=== PATIENT | female | born 1935 | race Caucasian/White ===

== ENCOUNTER 2018-10-10 16:14 | Outpatient (REF) | payer MEDICARE, SELFPAY ==
[2018-10-10 19:38] LABS: TSH 0.21 uIU/mL (0.358-3.74)
== END 2018-10-10 16:34 ==
LOC: NCHCN 16:14
PROVIDERS: PCP Internal Medicine; Visit Provider Internal Medicine
DX: I48.0 Paroxysmal atrial fibrillation (principal); I20.9 Angina pectoris, unspecified; E03.9 Hypothyroidism, unspecified
CPT/HCPCS: 84443

== ENCOUNTER 2018-12-23 14:42 | Outpatient (REF) | payer MEDICARE, SELFPAY ==
[2018-12-23 19:15] LABS: LDL CHOLESTEROL 75 mg/dL (<100); TSH 2.55 uIU/mL (0.358-3.74)
== END 2018-12-23 15:02 ==
LOC: NCHCN 14:42
PROVIDERS: PCP Internal Medicine; Visit Provider Internal Medicine
DX: I20.9 Angina pectoris, unspecified (principal); I48.0 Paroxysmal atrial fibrillation; I25.10 Atherosclerotic heart disease of native coronary artery without angina pectoris; E03.9 Hypothyroidism, unspecified
CPT/HCPCS: 83721; 84443

== ENCOUNTER 2019-02-10 15:03 | Outpatient (REF) | payer MEDICARE, SELFPAY ==
[2019-02-10 19:41] LABS: Albumin 3.4 g/dL (3.4-5.0); Anion Gap 13.4 mmol/L (3-11); BUN 37 mg/dL (7-18); CO2 22.6 mmol/L (21.0-32.0); CREATININE 2.97 mg/dL (0.55-1.02); Calcium 9.3 mg/dL (8.5-10.1); Chloride 103 mmol/L (98-107); Estimated GFR 15.15 (mL/min/1.73m2); Glucose 143 mg/dL (70-100); Magnesium 1.4 mg/dL (1.8-2.4); PHOSPHORUS 4.4 mg/dL (2.6-4.7); Potassium 3.9 mmol/L (3.5-5.1); Sodium 139 mmol/L (136-145)
[2019-02-12 13:04] LABS: Albumin 54.5 % (55.8-66.1); Monoclonal Spike 3.2 %; Total Protein 6.7 g/dl (6.3-8.2)
[2019-02-12 15:35] LABS: Albumin, Urine % 36.3 %; Comment SEE COMMENTS; Globulins, Urine % 63.7; Total Protein Urine 48 mg/dl
== END 2019-02-10 15:23 ==
LOC: NCHCN 15:03
PROVIDERS: PCP Internal Medicine; Visit Provider Internal Medicine
DX: I48.0 Paroxysmal atrial fibrillation (principal); N18.3 Chronic kidney disease, stage 3 (moderate); R05 Cough; N30.00 Acute cystitis without hematuria
CPT/HCPCS: 80069; 84156; 84166; 86335; 87077; 83735; 84165; 87086; 87186

== ENCOUNTER → 2019-05-08 10:44 | Outpatient (BNVA) | payer MEDICARE, SELFPAY | PROVIDERS: PCP Internal Medicine; Referring Provider Internal Medicine; Visit Provider Nurse Practitioner Gerontology | DX: N39.0 Urinary tract infection, site not specified (principal); N12 Tubulo-interstitial nephritis, not specified as acute or chronic; I12.9 Hypertensive chronic kidney disease with stage 1 through stage 4 chronic kidney disease, or unspecified chronic kidney disease; N18.3 Chronic kidney disease, stage 3 (moderate); E11.22 Type 2 diabetes mellitus with diabetic chronic kidney disease | CPT/HCPCS: 81003; 99204 ==

== ENCOUNTER → 2019-07-17 08:35 | Outpatient (BNVA) | payer MEDICARE, SELFPAY | PROVIDERS: PCP Internal Medicine; Referring Provider Internal Medicine; Visit Provider Nurse Practitioner Gerontology | DX: N39.0 Urinary tract infection, site not specified (principal); N12 Tubulo-interstitial nephritis, not specified as acute or chronic | CPT/HCPCS: 51798; 81003; 99213 ==

== ENCOUNTER 2021-02-24 17:02 | Outpatient (REF) | payer MEDICARE, SELFPAY | END 2021-02-24 17:03 | disposition home or self-care (01) | LOC: NCHCN 17:02 | PROVIDERS: PCP Internal Medicine; Visit Provider Nurse Practitioner Family | DX: E11.9 Type 2 diabetes mellitus without complications (principal); E03.9 Hypothyroidism, unspecified | CPT/HCPCS: 83036 ==

== ENCOUNTER 2021-07-08 11:23 | Outpatient (REF) | payer MEDICARE, SELFPAY ==
[2021-07-08 14:38] LABS: TSH (W/Ref FT4) 14.03 uIU/mL (0.36-3.74)
[2021-07-08 14:55] LABS: FREE T4 0.92 ng/dL (0.76-1.46)
== END 2021-07-08 11:24 | disposition home or self-care (01) ==
LOC: NCHCN 11:23
PROVIDERS: PCP Internal Medicine; Visit Provider Nurse Practitioner Family
DX: E03.9 Hypothyroidism, unspecified (principal)
CPT/HCPCS: 84439; 84443

== ENCOUNTER 2021-08-10 15:03 | Emergency (ER) | payer MEDICARE, SELFPAY ==
[2021-08-10] VITALS (34 sets, daily range): BP systolic 157–180; BP diastolic 74–93; PULSE 61–91; RESP 12–29; TEMP 36.3–36.8; O2SAT 91–98
--- NOTE | 2021-08-10 15:35 | W.ED.GENAD ---
Discharge Plan Disposition Patient Disposition: HOME Condition: Stable Discharge Details Clinical Impression: Fall, Fracture of nasal bone, Contusion of rib on left side, Chest wall contusion Primary Care Provider: Jamil Recio ED Provider: Anjana Mcadams Home Meds and New Rx's Prescriptions: New oxycodone 5 mg tablet 5 mg PO Q6H PRN (Reason: pain) Qty: 10 RF: 0 methocarbamol 500 mg tablet 500 mg PO Q6H PRN (Reason: muscle spasm) Qty: 14 RF: 0 Continued glipizide 2.5 mg tablet extended release 24hr 2.5 mg PO DAILY RF: 0 torsemide 10 mg tablet 10 mg PO DAILY RF: 0 aspirin [Adult Aspirin Regimen] 81 mg tablet,delayed release (DR/EC) 81 mg PO DAILY RF: 0 amiodarone 200 mg tablet 100 mg PO DAILY RF: 0 atorvastatin 20 mg tablet 10 mg PO DAILY RF: 0 levothyroxine [Synthroid] 50 mcg tablet 50 mcg PO DAILY RF: 0 magnesium gluconate [Mag-G] 27 mg magnesium (500 mg) tablet 27 mg PO DAILY RF: 0 B-100 Complex 100 mg tablet extended release PO RF: 0 mecobalamin (vitamin B12) 5,000 mcg tablet,disintegrating PO RF: 0 cholecalciferol (vitamin D3) 2,000 unit capsule 2,000 unit PO DAILY RF: 0 Premarin 0.625 mg/gram cream 0.625 mg VG DIRECTED Qty: 90 RF: 4 fluticasone propionate [Allergy Relief (fluticasone)] 50 mcg/actuation spray,suspension 1 spray JULIEN DAILY RF: 0 nitroglycerin 0.4 mg tablet, sublingual 0.4 mg SL Q5M PRNRF: 0 losartan 100 MG tablet 100 mg PO DAILY RF: 0 primidone 50 mg tablet 50 mg PO TID RF: 0 carvedilol 12.5 mg tablet 12.5 mg PO BID RF: 0 amiodarone 200 mg tablet RF: 0 ascorbic acid (vitamin C) [Vitamin C] 500 mg Tablet 500 mg PO DAILY RF: 0 lisinopril 40 mg tablet 20 mg PO DAILY RF: 0 Eliquis 2.5 mg tablet 2.5 mg PO BID RF: 0 cholecalciferol (vitamin D3) 50 mcg (2,000 unit) capsule 2,000 unit PO DAILY RF: 0 Discharge Instructions Instructions: Nasal Fracture (ED), Head Injury (ED), Fall Prevention (ED), Rib Contusion (ED) Additional Instructions: Your imaging today is reassuring and did not note evidence of acute significant findings other than the previously diagnosed nasal bone fracture. Apply ice to the affected area several times daily for 20 minutes at a time. Take Tylenol as needed and directed for pain. You are being sent home with prescriptions for oxycodone and methocarbamol to take as needed and directed for pain. Follow-up with your primary care doctor for reevaluation and for further discussion of your nasal bone fracture if you need to follow up with the Ear, Nose and Throat doctor. Return immediately to the emergency department if you develop any worsening or new concerning symptoms. Referrals: Antony Lamb MD [ [facility] STAFF PHYSICIAN] - Discharge Data Discharge Physician: Anjana Mcadams Medical Decision Making 86-year-old female with a history of atrial fibrillation on Eliquis presents for left side pain and chest pain that occurs with movement and deep breath since a fall 5 days ago. She does admit to change in her vision on the right since striking her eye. She has a right periorbital contusion and ecchymosis. PERRLA. EOMI. No evidence of entrapment. OU 20/30. She has anterior chest wall ecchymosis and tenderness to her anterior chest and left lateral rib and left upper quadrant. No peritoneal signs. She has midline spinal tenderness. No orthopedic deformities. No focal deficits. We will obtain screening labs, CT head/facial bone/cervical spine, chest/abdomen/pelvis and T and L-spine recons. As her chest pain is at the site of ecchymosis and occurs only with movement and palpation, does not appear consistent with cardiac etiology and she is 5 days out from her fall and thus do not an indication for blunt cardiac injury work-up. Screening labs obtained and note CKD with a creatinine of 2.5, GFR 18, similar to previous baseline. Imaging changed to non-contrast. CT imaging reviewed and negative for new acute findings other than previously diagnosed nasal bone fracture. Patient drove herself to the ED and cannot get a ride home. Will send home with oxycodone methocarbamol to take as needed and directed for chest wall and rib contusion. Prescriptions were sent electronically to her pharmacy. Advised to follow up with the primary care doctor for re-evaluation. Usual and customary return precautions given prior to discharge. Medical Records Medical records reviewed: Yes I reviewed the patient's medical records. Imaging Data Radiologic Study: Radiologist's impression: CT Thoracic Spine Without Contrast Exam date and time: 08/10/2021 5:28 PM Age: 86 years old Clinical indication: Other: Lt sided pain, fall TECHNIQUE: Imaging protocol: Computed tomography images of the thoracic spine without contrast. Radiation optimization: All CT scans at this facility use at least one of these dose optimization techniques: automated exposure control; mA and/or kV adjustment per patient size (includes targeted exams where dose is matched to clinical indication); or iterative reconstruction. COMPARISON: CT HEAD CERV SPINE FACIAL WO 08/10/2021 5:04 PM FINDINGS: Vertebrae: Moderate kyphosis of the thoracic spine. No compression fracture deformity. No spondylolysis or spondylolisthesis. Discs/Spinal canal/Neural foramina: Mild to moderate disc space narrowing and superior endplate Schmorl's node in the mid to lower thoracic spine from chronic degenerative changes. Superior T9, T11, and T12 Schmorl's nodes. A left T1 oval 1 cm meningocele. A right T2 oval 2 cm meningocele. Other bones/joints: Moderate generalized osteopenia. Soft tissues: Unremarkable. IMPRESSION: 1. No acute thoracic spine fracture or malalignment. 2. 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 CT Lumbar Spine Without Contrast Exam date and time: 08/10/2021 5:28 PM Age: 86 years old Clinical indication: Other: Lt sided pain, fall TECHNIQUE: Imaging protocol: Computed tomography images of the lumbar spine without contrast. Radiation optimization: All CT scans at this facility use at least one of these dose optimization techniques: automated exposure control; mA and/or kV adjustment per patient size (includes targeted exams where dose is matched to clinical indication); or iterative reconstruction. COMPARISON: CT HEAD CERV SPINE FACIAL WO 08/10/2021 5:04 PM FINDINGS: Vertebrae: Normal lordosis of the lumbar spine. Five non rib-bearing lumbar type vertebral bodies. No compression fracture deformity. No spondylolysis or spondylolisthesis. Discs/Spinal canal/Neural foramina: Chronic hnwj-bj-thowjiql degenerative changes with facet hypertrophy in the posterior elements. Vacuum disc formation at T12-L1 and within L5-S1 disc material. Superior L2 Schmorl's node. Other bones/joints: No lytic or blastic osseous lesions. Moderate generalized osteopenia. Soft tissues: Unremarkable. IMPRESSION: No acute lumbar spine fracture or malalignment. CT Chest Without Contrast; Diagnostic Exam date and time: 08/10/2021 5:28 PM Age: 86 years old Clinical indication: Abdominal pain; Other: Luq pain; Left-sided; Patient HX: Contusion lt ribs, tender over L ribs/luq TECHNIQUE: Imaging protocol: Diagnostic computed tomography of the chest without contrast. Radiation optimization: All CT scans at this facility use at least one of these dose optimization techniques: automated exposure control; mA and/or kV adjustment per patient size (includes targeted exams where dose is matched to clinical indication); or iterative reconstruction. COMPARISON: CT HEAD CERV SPINE FACIAL WO 08/10/2021 5:04 PM FINDINGS: Thyroid: Atrophic thyroid gland versus stable postoperative changes of total thyroidectomy. Lungs: No pulmonary contusion or consolidation. No pulmonary nodule. Medial left lower lobe focus of atelectasis. Mild centrilobular emphysema. Pleural spaces: No pneumothorax or hemothorax. Heart: No pericardial effusion. Cardiomegaly with moderate to severe coronary artery calcifications. Mediastinal space: No mediastinal hematoma. Prominent pulmonary artery suggestive of pulmonary arterial hypertension. Aorta: No thoracic aortic aneurysm. No periaortic hematoma. Lymph nodes: Unremarkable. No enlarged lymph nodes. Bones/joints: No acute fracture or dislocation. Soft tissues: Right mastectomy. Left upper chest wall pacemaker with leads directed to the right heart. Probable chronic masslike findings deep to the right latissimus dorsi from internal granulomatous change or hemorrhage within a large lipoma. IMPRESSION: No acute traumatic injuries of the chest identified. CT Abdomen And Pelvis Without Contrast Exam date and time: 08/10/2021 5:28 PM Age: 86 years old Clinical indication: Abdominal pain; Other: Luq pain; Left-sided; Patient HX: Contusion lt ribs, tender over L ribs/luq TECHNIQUE: Imaging protocol: Computed tomography of the abdomen and pelvis without contrast. Radiation optimization: All CT scans at this facility use at least one of these dose optimization techniques: automated exposure control; mA and/or kV adjustment per patient size (includes targeted exams where dose is matched to clinical indication); or iterative reconstruction. COMPARISON: CT HEAD CERV SPINE FACIAL WO 08/10/2021 5:04 PM FINDINGS: Liver: No linear hypodensity or hyperdensity to suggest hepatic laceration. No perihepatic hematoma. Gallbladder and bile ducts: Cholelithiasis. Pancreas: Normal. No ductal dilation. Spleen: No splenic laceration or perisplenic hematoma. Adrenal glands: Multiple bilateral adrenal gland nodules with low internal density most suggestive of multiple benign adrenal adenomas. No hyperdense finding to suggest adrenal hematoma or hemorrhage. Kidneys and ureters: Normal. No hydronephrosis. Stomach and bowel: Stable postoperative changes of a rectosigmoid stump. Appendix: No evidence of appendicitis. Intraperitoneal space: No free air or free fluid. Vasculature: Unremarkable. No abdominal aortic aneurysm. Lymph nodes: Unremarkable. No enlarged lymph nodes. Urinary bladder: Unremarkable as visualized. Reproductive: Unremarkable as visualized. Bones/joints: No acute fracture of the osseous structures in the abdomen or pelvis. Soft tissues: Left lower quadrant end colostomy with a stable large parastomal hernia with non distressed large bowel within. IMPRESSION: 1. No solid organ or hollow viscus injury in the abdomen or pelvis. 2. Left lower quadrant end colostomy with a stable peristomal hernia. Stable rectosigmoid stump. 3. Bilateral adrenal gland adenomas. CT Head Without Contrast Exam date and time: 08/10/2021 3:59 PM Age: 86 years old Clinical indication: CALL, eye bruising S/P trauma. Fall. ; Eye pain and nose pain; Bilateral; Neck pain TECHNIQUE: Imaging protocol: Computed tomography of the head without contrast. Radiation optimization: All CT scans at this facility use at least one of these dose optimization techniques: automated exposure control; mA and/or kV adjustment per patient size (includes targeted exams where dose is matched to clinical indication); or iterative reconstruction. COMPARISON: No relevant prior studies available. FINDINGS: Brain: There is no acute intracranial hemorrhage, mass effect or midline shift. No large acute territorial infarct identified. There are patchy regions of hypodensity in the periventricular and subcortical white matter, likely on the basis of chronic microvascular ischemic disease. Cerebral ventricles: The ventricles and sulci are prominent in size, which is at least in part due to global cerebral volume loss. Paranasal sinuses: Visualized sinuses are unremarkable. No fluid levels. Mastoid air cells: Visualized mastoid air cells are well aerated. Bones/joints: No acute calvarial fracture. Soft tissues: Unremarkable. IMPRESSION: No acute intracranial hemorrhage, mass effect or midline shift. CT Maxillofacial Without Contrast Exam date and time: 08/10/2021 3:59 PM Age: 86 years old Clinical indication: CALL, eye bruising S/P trauma. Fall. ; Eye pain and nose pain; Bilateral; Neck pain TECHNIQUE: Imaging protocol: Computed tomography images of the face without contrast. Radiation optimization: All CT scans at this facility use at least one of these dose optimization techniques: automated exposure control; mA and/or kV adjustment per patient size (includes targeted exams where dose is matched to clinical indication); or iterative reconstruction. COMPARISON: No relevant prior studies available. FINDINGS: Orbital cavity: Orbits are normal. Globes are unremarkable. Bones/joints: There is a small right nasal bone fracture seen anteriorly with medial displacement of the anterior fragment. Paranasal sinuses: Normal. No air-fluid levels. Soft tissues: No significant subcutaneous hematoma. IMPRESSION: Small right nasal bone fracture as described. CT Cervical Spine Without Contrast Exam date and time: 08/10/2021 3:59 PM Age: 86 years old Clinical indication: CALL, eye bruising S/P trauma. Fall. ; Eye pain and nose pain; Bilateral; Neck pain TECHNIQUE: Imaging protocol: Computed tomography images of the cervical spine without contrast. COMPARISON: No relevant prior studies available. FINDINGS: Bones/joints: No acute fracture. Normal alignment. Discs/Spinal canal/Neural foramina: There are multilevel degenerative changes most prominent at C3-C4 and C5-C6 with bilateral neural foraminal narrowing. No significant spinal canal stenosis. Lungs: Lung apices are normal. Soft tissues: Incidentally noted is a 19.5 x 14.4 x 14.3 cm oval-shaped cystic lesion at the right T2-T3 extraforaminal space adjacent to the right lung apex. IMPRESSION: 1. No acute fracture. Multilevel degenerative changes as described. 2. Incidental 19.5 cm oval shaped cystic lesion at the right T2-T3 extraforaminal space, which could represent a nerve sheath cyst or duplication cyst. Correlate with prior clinical history and compare with prior imaging for stability. Lab Data Lab results reviewed: Yes I reviewed the patient's lab results. Labs: Laboratory Tests Range/Units 08/10/21 08/10/21 08/10/21 16:27 16:27 16:27 WBC (4.4-10.8) 10^3/uL 5.81 RBC (3.93-5.22) 10^6/uL 3.25 L Hgb (11.2-15.7) g/dL 11.0 L Hct (36.0-46.0) % 34.1 L MCV (80-95) fL 104.9 H MCH (27.0-33.0) pg 33.8 H MCHC (32.0-36.0) % 32.3 RDW (11.7-14.6) % 15.8 H Plt Count (130-400) 10^3/uL 237 MPV (8.0-11.0) fL 10.5 Immature Gran % 0.5 Neutrophils % 60.4 Lymphocytes % 23.1 Monocytes % 13.6 Eosinophils % 1.5 Basophils % 0.9 Nucleated RBC % % 0 Absolute Neutrophils (1.2-6.7) 10^3/uL 3.51 Absolute Lymphocytes (1.2-3.4) 10^3/uL 1.34 Absolute Monocytes (0.1-0.8) 10^3/uL 0.79 Absolute Eosinophils (0.0-0.7) 10^3/uL 0.09 Absolute Basophils (0.0-0.2) 10^3/uL 0.05 Sodium (136-145) mmol/L 141 Potassium (3.5-5.1) mmol/L 4.1 Chloride (98-107) mmol/L 105 Carbon Dioxide (21.0-32.0) mmol/L 28.1 Anion Gap (3-11) mmol/L 7.9 BUN (7-18) mg/dL 41 H Creatinine (0.55-1.02) mg/dL 2.5 H Estimated GFR/1.73 m2 (mL/min/1.73m2) 18.35 Glucose (74-106) mg/dL 165 H Calcium (8.5-10.1) mg/dL 9.1 Total Bilirubin (0.2-1.0) mg/dL 0.3 AST (15-37) U/L 56 H ALT (14-59) U/L 49 Alkaline Phosphatase (46-116) U/L 101 Total Protein (6.4-8.2) g/dL 7.1 Albumin (3.4-5.0) g/dL 3.4 Lipase (73-393) U/L 167 HPI General Mode of arrival: ambulatory. Date/Time Provider Initiated Documentation: 08/10/21 15:12. Limitations to Documentation: no limitations. Information obtained by: patient. HPI Narrative: Patient is a an 86-year-old female with a history of atrial fibrillation on Eliquis presents for chest and left-sided pain that is worse with movement and deep breath since a fall 5 days ago. Patient states she was in a [employer] [place] 5 days ago when she slipped on water and fell striking the right side of her head and face and the left side of her body on the ground. She denies LOC. She states she was seen at [facility] at that time and diagnosed with a nasal bone fracture and had sutures placed in her forehead which were removed today. She states she has had continued pain in her left side since her fall and states she has had difficulty getting out of bed and moving due to the pain. Related Data Home Medications Medication Instructions Recorded Confirmed losartan 100 mg PO DAILY tab-cap 04/16/17 08/10/21 amiodarone 200 mg tablet 100 mg PO DAILY 05/08/19 08/10/21 aspirin 81 mg tablet,delayed 81 mg PO DAILY 05/08/19 08/10/21 release atorvastatin 20 mg tablet 10 mg PO DAILY 05/08/19 08/10/21 cholecalciferol (vitamin D3) 50 2,000 unit PO DAILY 05/08/19 08/10/21 mcg (2,000 unit) capsule conjugated estrogens 0.625 mg/gram 0.625 mg VG DIRECTED #90 gm 05/08/19 08/10/21 vaginal cream glipizide 2.5 mg tablet, extended 2.5 mg PO DAILY 05/08/19 08/10/21 release 24 hr levothyroxine 50 mcg tablet 50 mcg PO DAILY 05/08/19 08/10/21 magnesium gluconate 27 mg 27 mg PO DAILY tab 05/08/19 08/10/21 magnesium (500 mg) tablet mecobalamin (vitamin B12) 5,000 mcg PO 05/08/19 05/08/19 mcg disintegrating tablet torsemide 10 mg tablet 10 mg PO DAILY 05/08/19 08/10/21 vit B complex 100 combo no.2 100 tab PO 05/08/19 05/08/19 mg tablet,extended release fluticasone propionate 50 1 spray JULIEN DAILY 07/17/19 08/10/21 mcg/actuation nasal spray,suspension nitroglycerin 0.4 mg sublingual 0.4 mg SL Q5M PRN 07/17/19 08/10/21 tablet Eliquis 2.5 mg PO BID 08/10/21 08/10/21 amiodarone 08/10/21 08/10/21 ascorbic acid (vitamin C) [Vitamin 500 mg PO DAILY 08/10/21 08/10/21 C] carvedilol 12.5 mg PO BID 08/10/21 08/10/21 cholecalciferol (vitamin D3) 2,000 unit PO DAILY 08/10/21 08/10/21 lisinopril 20 mg PO DAILY 08/10/21 08/10/21 methocarbamol 500 mg PO Q6H PRN #14 tab 08/10/21 oxycodone 5 mg PO Q6H PRN #10 tab 08/10/21 primidone 50 mg PO TID 08/10/21 08/10/21 Previous Rx's Medication Instructions Recorded conjugated estrogens 0.625 mg/gram 0.625 mg VG DIRECTED #90 gm 05/08/19 vaginal cream methocarbamol 500 mg PO Q6H PRN #14 tab 08/10/21 oxycodone 5 mg PO Q6H PRN #10 tab 08/10/21 Allergies Allergy/AdvReac Type Severity Reaction Status Date / Time levofloxacin Allergy Severe Unverified 08/10/21 15:18 Penicillins Allergy Intermediate RASH Unverified 08/10/21 15:18 erythromycin base Allergy Unknown Unverified 08/10/21 15:18 sulfamethoxazole Allergy Verified 08/10/21 15:18 [From Bactrim] trimethoprim [From Bactrim] Allergy Verified 08/10/21 15:18 General Stated Complaint: Trauma JUNG: 3 Review of Systems All systems reviewed & are unremarkable except as noted in HPI and below Constitutional Constitutional: Reports as per HPI, Denies chills and Denies fever(s) Eyes Eyes: Denies blurry vision ENT Ears, Nose, Mouth, and Throat: Denies dizziness, Denies sore throat and Denies throat swelling Cardiovascular Cardiovascular: Reports chest pain and Denies dyspnea Respiratory Respiratory: Denies cough and Denies dyspnea Gastrointestinal Gastrointestinal: Reports abdominal pain, Denies diarrhea and Denies vomiting Genitourinary Genitourinary: Denies hematuria and Denies dysuria Musculoskeletal Musculoskeletal: Denies back pain and Denies numbness Integumentary/Breasts Skin/Breast: Denies lesions and Denies rash Neurologic Neurologic: Denies dizziness, Denies localized weakness and Denies numbness Allergic/Immunologic Allergic/Immunologic: Denies throat swelling [facility] Active Problem List (Updated 08/10/21 @ 19:13 by Anjana Mcadams DO) Fall (Acute) Fracture of nasal bone (Acute) Contusion of rib on left side (Acute) Chest wall contusion (Acute) Colostomy in place (Acute 04/03/13) S/P middle ear reconstruction (Acute 04/03/13) Postoperative hypothyroidism (Acute 04/03/13) Lichen sclerosus et atrophicus (Acute 04/03/13) Ischemic colitis (Acute 04/03/13) Hx of malignant neoplasm of breast (Acute 04/03/13) 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) Diabetes mellitus (Acute 04/03/13) Medical History (Updated 08/10/21 @ 19:13 by Anjana Mcadams DO) Acute recurrent cystitis Anemia of chronic renal failure Angina pectoris BPPV (benign paroxysmal positional vertigo) Breast cancer CAD (coronary artery disease) Chest pain Chronic cough CKD (chronic kidney disease) stage 3, GFR 30-59 ml/min Dyspnea on exertion Essential tremor GERD (gastroesophageal reflux disease) History of cervical dysplasia Hyperlipidemia Hypertension Hypothyroid Lumbago Myocardial infarct KD (obstructive sleep apnea) Paroxysmal atrial fibrillation Rectal pouchitis Right bundle branch block Sciatica Tear of both anterior and posterior cruciate ligaments of knee Tendon disorder TIA (transient ischemic attack) Surgical History (Updated 07/10/18 @ 14:36 by [employer]) Breast, Mastectomy (~2001) Right Colostomy (~2006) for Ischemic colitis Social History (Updated 06/27/18 @ 09:49 by Amber Davis LPN) Smoking/Tobacco Use Status: Former Tobacco Use Smoking risk assessment performed?: Yes Alcohol Intake: never Substance use type: does not use Seatbelt use: always Exam Const General: cooperative and healthy appearing Orientation: alert and awake [facility] Head: normal to inspection Ears: hearing grossly normal bilaterally, external ears normal and TM's normal bilaterally General nose exam: external nose normal Face and sinus: normal facial exam Mouth: oral mucosae normal Teeth and gingiva: dentition normal Throat: posterior oropharynx normal Eyes General: appearance normal, both eyes and all related structures Eyelids: eyelids normal Pupils: PERRL EOM: EOM intact bilaterally Neck Neck: normal visual inspection Lymphatic: no lymphadenopathy noted Chest Chest: normal inspection of the chest Resp Effort & Inspection: normal respiratory effort and able to speak in complete sentences Auscultation: clear to auscultation bilaterally Cardio Rate: regular rate Rhythm: regular rhythm GI Inspection: normal to inspection Palpation: soft, not firm, no guarding, no hepatosplenomegaly, no masses and nontender Auscultation: normal bowel sounds Back/Spine/Pelvis Back: no CVA tenderness Skin General skin exam: no rashes or lesions noted Neuro General: patient alert and patient awake Cognition: normal cognition Speech: speech normal Gait: normal gait Motor: muscle tone normal throughout Sensory Exam: no sensory deficits noted Extrem General: normal to inspection, full ROM and capillary refill normal Psych Appearance: grossly normal Mental Status: mental status grossly normal Speech and Movement: speech and movement normal Affect: normal affect Thought Process: normal Course Vital Signs Vital signs: Vital Signs Temperature 97.3 F L 08/10/21 15:10 Pulse 69 08/10/21 15:10 Respiratory Rate 16 08/10/21 15:10 Blood Pressure 160/90 H 08/10/21 15:10 Pulse Oximetry 98 08/10/21 15:10 Temperature 97.3 F L 08/10/21 15:10 Temperature Source Skin 08/10/21 15:10 Pulse 69 08/10/21 15:10 Respiratory Rate 16 08/10/21 15:10 Respiratory Effort Non-Labored 08/10/21 15:10 Blood Pressure 160/90 H 08/10/21 15:10 Blood Pressure Position Supine 08/10/21 15:10 Pulse Oximetry 98 08/10/21 15:10 Oxygen Delivery Method Room Air 08/10/21 15:10 Oxygen Flow Rate 0 08/10/21 15:10 Pain Level 9 08/10/21 15:10
--- NOTE | 2021-08-10 15:45 | DI.CT_ITS ---
Exam(s) CT HEAD CERV SPINE FACIAL WO EXAM: CT HEAD CERV SPINE FACIAL WO CLINICAL HISTORY: s/p recent fall w/ nose fx, now neck/R eye pain. TECHNIQUE: Imaging Protocol: Axial computed tomography images with coronal and sagittal reformatted images were created and reviewed COMPARISON: No exams were available for comparison FINDINGS: CT BRAIN: There are no skull fractures but there is a fracture of the right side of the nasal bone. No fluid i n the ethmoidal air cells and paranasal sinuses. There is no evidence of intracranial hemorrhage, mass effect, or shift of midline structures. There are no extra-axial fluid collections. The ventricles are not enlarged or shifted and there is no blo od within the ventricular system nor within the basal cisterns. There is periventricular white matter hypodensity bilaterally consistent with chronic small vessel di sease. Small 3 millimeter nonhemorrhagic lacunar infarcts noted in the immediate right periventricul ar white matter. No evidence of large acute territorial infarct. Another small lacunar infarct is n oted in the left periventricular white matter. Also mildly asymmetric hypodensity in the right side of lul which may be post ischemic. Vascular calcification is noted within the vertebral arteries at the skull base. Also within the intracavernous internal carotid arteries CT MAXILLOFACIAL BONES: There is fracture of the right side of the nasal bone. There is no evidence of facial fractures nor fluid in the visualized paranasal sinuses. there is no evidence of orbital blowout fracture. CT CERVICAL SPINE: There is no evidence of fracture nor listhesis. No significant prevertebral soft tissue swelling. M ultilevel facet arthropathy. No facet malalignment evident. No significant osseous lesions evident. There is moderate disc space narrowing C5-6 level C6-7 level. IMPRESSION: No acute intracranial findings on this noninfused CT scan of the brain.Chronic white matter ischemic changes, as described above There is a mildly displaced fracture of the right side of the nasal bone. No evidence of cervical spine fracture, malalignment, nor acute compromise of the cervical spinal can al. 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 RADIATION OPTIMIZATION: All CT scans at this facility use at least one of these dose optimization te chniques: automated exposure control; mA and/or kV adjustment per patient size (includes targeted exa ms where dose is matched to clinical indication); or iterative reconstruction.
--- NOTE | 2021-08-10 15:56 | DI.CT_ITS ---
Exam(s) CT THORACIC LUMBAR SPINE REC EXAM: CT THORACIC LUMBAR SPINE REC CLINICAL HISTORY: s/p fall, mid back pain, r/o fx TECHNIQUE: COMPARISON: No exams were available for comparison FINDINGS: THORACIC SPINAL COLUMN: No fractures. No listhesis no ominous osseous lesions. On the right side at T2 level there is an oval perineural meningocele measuring 2 cm by 1.3 cm x 1.4 cm. On the left side at T1 level there is a similar but smaller finding measuring 1.2 by 1.2 x 1.1 cm No evidence of acute fracture or listhesis. No malalignment. No ominous osseous lesions. LUMBOSACRAL SPINAL COLUMN: No evidence of fracture. Nor osseous lesions. Mild degenerative anterolisthesis L4 upon L5. There is an element of central spinal canal stenosis at this level and mild bilateral foraminal stenosis du e to the listhesis. There is no disc space height loss. IMPRESSION:
--- NOTE | 2021-08-10 16:13 | DI.CT_ITS ---
Exam(s) CT CHEST/ABD/PEL WO EXAM: CT CHEST/ABD/PEL WO CLINICAL HISTORY: s/p fall, contusion L ribs, tender L ribs/LUQ. TECHNIQUE: Imaging Protocol: Axial computed tomography images with coronal and sagittal reformatted images were created and reviewed CONTRAST MATERIAL: Intravenous: none Oral: None COMPARISON: No exams were available for comparison FINDINGS: CHEST: LUNGS: Mild increased markings both lung bases. No lung contusion. No pleural effusions. No pneumo thorax.. MEDIASTINUM: No mediastinal hematoma. No incidental adenopathy. Pacemaker wires CARDIAC: Heart size upper normal. No pericardial effusion. Pacemaker lead tips in RV. Coronary art georgie calcificationcaliber of the thoracic aorta is within normal limits. OSSEOUS: No fractures evident.No osseous lesions.. Right mastectomy. ABDOMEN: There is no ascites. LIVER: No a patent laceration evident on this noninfused study. No Ludivina hepatic fluid. GALLBLADDER/BILIARY: Cholelithiasis. No evidence of acute cholecystitis. CBD is not dilated. PANCREAS: No evidence of obvious pancreatic mass nor dilatation of the pancreatic duct. SPLEEN: Spleen size normal. No splenic laceration. No perisplenic fluid. ADRENALS: 2 nodules noted in the right adrenal gland, noncalcified and both hypodense. Nodule in the genu of the left adrenal gland also noted. These are probably incidental adenomas. KIDNEYS: No evidence of renal laceration or subcapsular hematoma. No significant renal masses. No h ydronephrosis.. ABDOMINAL AORTA: Calcified but not enlarged. LYMPH NODES: There is no retroperitoneal nor para-aortic adenopathy. ABDOMINAL WALL/GI: Left-sided colostomy. Peristomal hernia noted No evidence of bowel obstruction. PELVIS: LYMPH NODES: There is no intrapelvic nor inguinal adenopathy. GI: No evidence of appendicitis.No evidence of sigmoid diverticulitis. URINARY BLADDER: No calculi nor obvious masses evident REPRODUCTIVE: Age appropriate OSSEOUS: No significant osseous lesions. IMPRESSION: 1. Realized limitations of a non few study, there are no significant trauma sequelae evident in the c hest, abdomen, and pelvis. 2. Right mastectomy. Left colostomy. 3. Cholelithiasis. No evidence of acute cholecystitis nor dilatation of the biliary tree. Bilateral adrenal gland adenomas RADIATION DOSE DELIVERED: Total DLP DATA REPOSITORY: All CT scans at this facility are submitted to the National Radiology Data Registry (NRDR) Dose Index Registry (DIR) with the [employer] ([employer]). RADIATION OPTIMIZATION: All CT scans at this facility use at least one of these dose optimization te chniques: automated exposure control; mA and/or kV adjustment per patient size (includes targeted exa ms where dose is matched to clinical indication); or iterative reconstruction.
[2021-08-10] MEDS: Acetaminophen 500 MG TAB 1000 MG PO (16:16)
[2021-08-10 16:36] LABS: Abs Immature Grans 0.03 10^3/uL (0.0-0.06); Absolute Basophil Count 0.05 10^3/uL (0.0-0.2); Absolute Eosinophil Count 0.09 10^3/uL (0.0-0.7); Absolute Lymphocyte Count 1.34 10^3/uL (1.2-3.4); Absolute Monocyte Count 0.79 10^3/uL (0.1-0.8); Absolute Neutrophil Count 3.51 10^3/uL (1.2-6.7); Basophils % 0.9; Eosinophils % 1.5; HCT 34.1 % (36.0-46.0); Immature Grans % 0.5; Lymphocytes % 23.1; MCH 33.8 pg (27.0-33.0); MCHC 32.3 % (32.0-36.0); MCV 104.9 fL (80-95); MPV 10.5 fL (8.0-11.0); Monocytes % 13.6; Neutrophils % 60.4; Nucleated RBC 0 %; Platelet Count 237 10^3/uL (130-400); RBC 3.25 10^6/uL (3.93-5.22); RDW 15.8 % (11.7-14.6); WBC 5.81 10^3/uL (4.4-10.8)
[2021-08-10 16:52] LABS: Lipase 167 U/L (73-393)
[2021-08-10 16:55] LABS: ALT 49 U/L (14-59); AST 56 U/L (15-37); Albumin 3.4 g/dL (3.4-5.0); Alkaline Phosphatase 101 U/L (46-116); Anion Gap 7.9 mmol/L (3-11); BUN 41 mg/dL (7-18); Bilirubin, Total 0.3 mg/dL (0.2-1.0); CO2 28.1 mmol/L (21.0-32.0); CREATININE 2.5 mg/dL (0.55-1.02); Calcium 9.1 mg/dL (8.5-10.1); Chloride 105 mmol/L (98-107); Estimated GFR 18.35 (mL/min/1.73m2); Glucose 165 mg/dL (74-106); Potassium 4.1 mmol/L (3.5-5.1); Sodium 141 mmol/L (136-145); Total Protein 7.1 g/dL (6.4-8.2)
[2021-08-10] MEDS: Normal Saline 250 ML IV (17:58)
--- NOTE | 2021-08-10 18:36 | DI.VRAD_ITS ---
PROCEDURE INFORMATION: Exam: CT Chest Without Contrast; Diagnostic Exam date and time: 08/10/2021 5:28 PM Age: 86 years old Clinical indication: Abdominal pain; Other: Luq pain; Left-sided; Patient HX: Contusion lt ribs, tender over L ribs/luq TECHNIQUE: Imaging protocol: Diagnostic computed tomography of the chest without contrast. Radiation optimization: All CT scans at this facility use at least one of these dose optimization techniques: automated exposure control; mA and/or kV adjustment per patient size (includes targeted exams where dose is matched to clinical indication); or iterative reconstruction. COMPARISON: CT HEAD CERV SPINE FACIAL WO 08/10/2021 5:04 PM FINDINGS: Thyroid: Atrophic thyroid gland versus stable postoperative changes of total thyroidectomy. Lungs: No pulmonary contusion or consolidation. No pulmonary nodule. Medial left lower lobe focus of atelectasis. Mild centrilobular emphysema. Pleural spaces: No pneumothorax or hemothorax. Heart: No pericardial effusion. Cardiomegaly with moderate to severe coronary artery calcifications. Mediastinal space: No mediastinal hematoma. Prominent pulmonary artery suggestive of pulmonary arterial hypertension. Aorta: No thoracic aortic aneurysm. No periaortic hematoma. Lymph nodes: Unremarkable. No enlarged lymph nodes. Bones/joints: No acute fracture or dislocation. Soft tissues: Right mastectomy. Left upper chest wall pacemaker with leads directed to the right heart. Probable chronic masslike findings deep to the right latissimus dorsi from internal granulomatous change or hemorrhage within a large lipoma. IMPRESSION: No acute traumatic injuries of the chest identified. PROCEDURE INFORMATION: Exam: CT Abdomen And Pelvis Without Contrast Exam date and time: 08/10/2021 5:28 PM Age: 86 years old Clinical indication: Abdominal pain; Other: Luq pain; Left-sided; Patient HX: Contusion lt ribs, tender over L ribs/luq TECHNIQUE: Imaging protocol: Computed tomography of the abdomen and pelvis without contrast. Radiation optimization: All CT scans at this facility use at least one of these dose optimization techniques: automated exposure control; mA and/or kV adjustment per patient size (includes targeted exams where dose is matched to clinical indication); or iterative reconstruction. COMPARISON: CT HEAD CERV SPINE FACIAL WO 08/10/2021 5:04 PM FINDINGS: Liver: No linear hypodensity or hyperdensity to suggest hepatic laceration. No perihepatic hematoma. Gallbladder and bile ducts: Cholelithiasis. Pancreas: Normal. No ductal dilation. Spleen: No splenic laceration or perisplenic hematoma. Adrenal glands: Multiple bilateral adrenal gland nodules with low internal density most suggestive of multiple benign adrenal adenomas. No hyperdense finding to suggest adrenal hematoma or hemorrhage. Kidneys and ureters: Normal. No hydronephrosis. Stomach and bowel: Stable postoperative changes of a rectosigmoid stump. Appendix: No evidence of appendicitis. Intraperitoneal space: No free air or free fluid. Vasculature: Unremarkable. No abdominal aortic aneurysm. Lymph nodes: Unremarkable. No enlarged lymph nodes. Urinary bladder: Unremarkable as visualized. Reproductive: Unremarkable as visualized. Bones/joints: No acute fracture of the osseous structures in the abdomen or pelvis. Soft tissues: Left lower quadrant end colostomy with a stable large parastomal hernia with non distressed large bowel within. IMPRESSION: 1. No solid organ or hollow viscus injury in the abdomen or pelvis. 2. Left lower quadrant end colostomy with a stable peristomal hernia. Stable rectosigmoid stump. 3. Bilateral adrenal gland adenomas. Dictated and Authenticated by: Rogelio De Leon MD. Ordering:RACHEL Yeung MD
--- NOTE | 2021-08-10 18:43 | DI.VRAD_ITS ---
PROCEDURE INFORMATION: Exam: CT Thoracic Spine Without Contrast Exam date and time: 08/10/2021 5:28 PM Age: 86 years old Clinical indication: Other: Lt sided pain, fall TECHNIQUE: Imaging protocol: Computed tomography images of the thoracic spine without contrast. Radiation optimization: All CT scans at this facility use at least one of these dose optimization techniques: automated exposure control; mA and/or kV adjustment per patient size (includes targeted exams where dose is matched to clinical indication); or iterative reconstruction. COMPARISON: CT HEAD CERV SPINE FACIAL WO 08/10/2021 5:04 PM FINDINGS: Vertebrae: Moderate kyphosis of the thoracic spine. No compression fracture deformity. No spondylolysis or spondylolisthesis. Discs/Spinal canal/Neural foramina: Mild to moderate disc space narrowing and superior endplate Schmorl's node in the mid to lower thoracic spine from chronic degenerative changes. Superior T9, T11, and T12 Schmorl's nodes. A left T1 oval 1 cm meningocele. A right T2 oval 2 cm meningocele. Other bones/joints: Moderate generalized osteopenia. Soft tissues: Unremarkable. IMPRESSION: 1. No acute thoracic spine fracture or malalignment. 2. 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 PROCEDURE INFORMATION: Exam: CT Lumbar Spine Without Contrast Exam date and time: 08/10/2021 5:28 PM Age: 86 years old Clinical indication: Other: Lt sided pain, fall TECHNIQUE: Imaging protocol: Computed tomography images of the lumbar spine without contrast. Radiation optimization: All CT scans at this facility use at least one of these dose optimization techniques: automated exposure control; mA and/or kV adjustment per patient size (includes targeted exams where dose is matched to clinical indication); or iterative reconstruction. COMPARISON: CT HEAD CERV SPINE FACIAL WO 08/10/2021 5:04 PM FINDINGS: Vertebrae: Normal lordosis of the lumbar spine. Five non rib-bearing lumbar type vertebral bodies. No compression fracture deformity. No spondylolysis or spondylolisthesis. Discs/Spinal canal/Neural foramina: Chronic [id number] degenerative changes with facet hypertrophy in the posterior elements. Vacuum disc formation at T12-L1 and within L5-S1 disc material. Superior L2 Schmorl's node. Other bones/joints: No lytic or blastic osseous lesions. Moderate generalized osteopenia. Soft tissues: Unremarkable. IMPRESSION: No acute lumbar spine fracture or malalignment. Dictated and Authenticated by: Rogelio De Leon MD. Ordering:RACHEL Yeung MD
--- NOTE | 2021-08-10 18:54 | DI.VRAD_ITS ---
PROCEDURE INFORMATION: Exam: CT Head Without Contrast Exam date and time: 08/10/2021 3:59 PM Age: 86 years old Clinical indication: CALL, eye bruising S/P trauma. Fall. ; Eye pain and nose pain; Bilateral; Neck pain TECHNIQUE: Imaging protocol: Computed tomography of the head without contrast. Radiation optimization: All CT scans at this facility use at least one of these dose optimization techniques: automated exposure control; mA and/or kV adjustment per patient size (includes targeted exams where dose is matched to clinical indication); or iterative reconstruction. COMPARISON: No relevant prior studies available. FINDINGS: Brain: There is no acute intracranial hemorrhage, mass effect or midline shift. No large acute territorial infarct identified. There are patchy regions of hypodensity in the periventricular and subcortical white matter, likely on the basis of chronic microvascular ischemic disease. Cerebral ventricles: The ventricles and sulci are prominent in size, which is at least in part due to global cerebral volume loss. Paranasal sinuses: Visualized sinuses are unremarkable. No fluid levels. Mastoid air cells: Visualized mastoid air cells are well aerated. Bones/joints: No acute calvarial fracture. Soft tissues: Unremarkable. IMPRESSION: No acute intracranial hemorrhage, mass effect or midline shift. PROCEDURE INFORMATION: Exam: CT Maxillofacial Without Contrast Exam date and time: 08/10/2021 3:59 PM Age: 86 years old Clinical indication: CALL, eye bruising S/P trauma. Fall. ; Eye pain and nose pain; Bilateral; Neck pain TECHNIQUE: Imaging protocol: Computed tomography images of the face without contrast. Radiation optimization: All CT scans at this facility use at least one of these dose optimization techniques: automated exposure control; mA and/or kV adjustment per patient size (includes targeted exams where dose is matched to clinical indication); or iterative reconstruction. COMPARISON: No relevant prior studies available. FINDINGS: Orbital cavity: Orbits are normal. Globes are unremarkable. Bones/joints: There is a small right nasal bone fracture seen anteriorly with medial displacement of the anterior fragment. Paranasal sinuses: Normal. No air-fluid levels. Soft tissues: No significant subcutaneous hematoma. IMPRESSION: Small right nasal bone fracture as described. PROCEDURE INFORMATION: Exam: CT Cervical Spine Without Contrast Exam date and time: 08/10/2021 3:59 PM Age: 86 years old Clinical indication: CALL, eye bruising S/P trauma. Fall. ; Eye pain and nose pain; Bilateral; Neck pain TECHNIQUE: Imaging protocol: Computed tomography images of the cervical spine without contrast. COMPARISON: No relevant prior studies available. FINDINGS: Bones/joints: No acute fracture. Normal alignment. Discs/Spinal canal/Neural foramina: There are multilevel degenerative changes most prominent at C3-C4 and C5-C6 with bilateral neural foraminal narrowing. No significant spinal canal stenosis. Lungs: Lung apices are normal. Soft tissues: Incidentally noted is a 19.5 x 14.4 x 14.3 cm oval-shaped cystic lesion at the right T2-T3 extraforaminal space adjacent to the right lung apex. IMPRESSION: 1. No acute fracture. Multilevel degenerative changes as described. 2. Incidental 19.5 cm oval shaped cystic lesion at the right T2-T3 extraforaminal space, which could represent a nerve sheath cyst or duplication cyst. Correlate with prior clinical history and compare with prior imaging for stability. Dictated and Authenticated by: Holley Stephens MD. Ordering:RACHEL Yeung MD
[2021-08-10] MEDS: Methocarbamol 500 MG TAB 1000 MG PO (19:23)
== END 2021-08-10 19:27 | disposition home or self-care (01) ==
PROVIDERS: Emergency Provider Physician Assistant; PCP Internal Medicine
DX: S02.2XXA Fracture of nasal bones, initial encounter for closed fracture (principal); S20.212A Contusion of left front wall of thorax, initial encounter; W18.39XA Other fall on same level, initial encounter
CPT/HCPCS: 36415; 71250; 80053; 83690; 96360; 99285; 70450; 70486; 72125; 74176; 85025; 99284

== ENCOUNTER 2021-09-29 18:44 | Outpatient (REF) | payer MEDICARE, SELFPAY ==
[2021-09-29 18:52] LABS: TSH (W/Ref FT4) 2.03 uIU/mL (0.36-3.74)
== END 2021-09-29 18:45 | disposition home or self-care (01) ==
LOC: NCHCN 18:44
PROVIDERS: PCP Internal Medicine; Visit Provider Nurse Practitioner Family
DX: E03.9 Hypothyroidism, unspecified (principal)
CPT/HCPCS: 84443

== ENCOUNTER 2021-12-05 15:18 | Outpatient (REF) | payer MEDICARE, SELFPAY ==
[2021-12-05 14:47] LABS: Bilirubin Negative (Negative); Blood Trace-intact (Negative); Clarity Cloudy (Clear); Glucose Negative (Negative); Ketones Negative (Negative); Leukocyte Esterase Moderate (Negative); Nitrite Positive (Negative); Urobilinogen 0.2 EU/dL (Up TO 0.2)
[2021-12-05 14:52] LABS: Bacteria Many HPF (Negative); C & S Indicated? C&S Done As Ordered; Casts Negative LPF (Negative); Crystals Negative HPF (Negative); Epithelial Cells Few HPF (Negative); Mucus Negative (Negative); RBC 0-2 HPF (0-2); WBC >50 HPF (0-5)
== END 2021-12-05 15:19 | disposition home or self-care (01) ==
LOC: NCHCN 15:18
PROVIDERS: PCP Internal Medicine; Visit Provider Nurse Practitioner Family
DX: N30.00 Acute cystitis without hematuria (principal)
CPT/HCPCS: 87077; 81003; 81015; 87086; 87186

== ENCOUNTER 2021-12-29 19:07 | Outpatient (REF) | payer MEDICARE, SELFPAY ==
--- OUTSIDE RECORDS SUMMARY | 2021-12-29 19:11 | XMS_ITS | Encounter Summary ---
:1935 Author Care Team Providers Name Role Phone Traci Etta JON Primary Care Provider [phone] Omari Powell MD Date Night Sitter [phone] [employer] [facility] OTHER [phone] Reason for Visit vertigo Assessment and Plan 1. Vertigo 2. Benign paroxysmal positional vertigo nystagmus Discussion Note: None recorded.Patient educational handouts: No information available. Plan of Care Reminders Provider Appointments None ? ? recorded. Lab None ? ? recorded. Referral None ? ? recorded. Procedures None ? ? recorded. Surgeries None ? ? recorded. Imaging None ? ? recorded. Medications Name Start Date ? ? acetaminophen 325 mg tablet 02/05/2019 Take 1000 mg every 6 hours by oral route as needed. amiodarone 200 mg tablet ? aspirin 81 mg tablet 02/05/2019 Take 1 tablet every day by oral route. atorvastatin 20 mg tablet ? cefuroxime axetil 250 mg tablet ? Take 1 tablet every 12 hours by oral route for 10 day s. cephalexin 250 mg capsule ? cephalexin 500 mg capsule ? Take 1 capsule twice a day by oral route for 10 days. cyanocobalamin (vit B-12) 500 mcg tablet ? Take 1 tablet by mouth once daily Eliquis 2.5 mg tablet ? glipizide ER 2.5 mg tablet, extended release 24 hr ? hydralazine 10 mg tablet ? Take 1 tablet every 8 hours by oral route for 7 days. levothyroxine 50 mcg tablet ? 1 tablet every day by oral route for 50 days. levothyroxine 75 mcg tablet ? Take 1 tablet every day by oral route. lisinopril 20 mg tablet ? lisinopril 40 mg tablet ? Mag-G 27 mg magnesium (500 mg) tablet ? take 1 tab twice daily magnesium amino acid chelate 27 mg tablet ? TAKE 1 TABLET BY MOUTH IN THE EVENING. IF STILL GETTING LEG CRAMPS YOU MAY INCREASE TO TAKE 1 TABLET BY MOUTH TWICE DAILY metoprolol succinate ER 100 mg tablet,extended release 24 hr ? metoprolol succinate ER 200 mg tablet,extended release 24 hr ? Take 1 tablet every day by oral route. metoprolol succinate ER 25 mg tablet,extended release 24 hr ? metoprolol succinate ER 50 mg tablet,extended release 24 hr ? Nitrostat 0.4 mg sublingual tablet 02/05/2019 Place 1 tablet by sublingual route as needed. omeprazole 20 mg capsule,delayed release ? omeprazole 20 mg tablet,delayed release 02/05/2019 Take 1 tablet twice a day by oral route. Premarin 0.625 mg/gram vaginal cream ? Insert by vaginal route as needed. propranolol 40 mg tablet ? torsemide 10 mg tablet ? Take 2 tablets every day by oral route. Vitamin D3 50 mcg (2,000 unit) capsule ? Take 1 capsule by mouth once daily Vitamin D3 50 mcg (2,000 unit) tablet ? take 1 capsule once daily Xarelto 15 mg tablet ? TAKE 15MG (1 TABLET) DAILY BY MOUTH 30 DAYS Notes: med rec updated 02/03/19. ALSO: STOP HOME DOSE OF AMIODARONE. Medications Administered None recorded. Vitals None recorded. Results Lab Results None recorded. Allergies Code Code System Name Reaction Severity Onset 998797 RxNorm Bactrim ? ? ? 4053 RxNorm Erythromycin Base ? ? ? 858106 RxNorm Levaquin ? ? ? Penicillins ? ? ? Problems Name Status Onset Date Source ? Vitamin D Deficiency Active 04/25/2018 ? Fatigue Active 04/25/2018 ? Mixed Sleep Apnea Active 06/10/2018 ? Adjustment Disorder Active ? History Central Sleep Apnea Syndrome Active ? ? Atrial Fibrillation Active ? History Pain in Right Lower Limb Active ? History Respiration Intermittent Active ? History Dysphagia Active ? History Long-term Drug Therapy Active ? History Procedures Date Name Performed by ? 07/15/2007 Colostomy Information not avai lable 09/24/2001 Mastectomy Information not avai lable Notes: Radical Vaccine List None recorded. Social History Tobacco Smoking Status Former Smoker Notes: 25, 2 p pd quit 1990 What is your level of alcohol None consumption? Live alone or with others? alone Did the fall result in an injury? N Are you currently employed? N Have you used IV drugs? N Are you blind or do you have N Notes: w ears reading glasses difficulty seeing? What is your code status? 0 Language Difficulties No How much tobacco do you chew? none What was the date of your most recent 06/10/2018 tobacco screening? Hard of hearing or deaf in one or Y Note s: doesn't wear hearing both ears? aids Do you have an advanced directive? Y What is your level of caffeine Notes: 2-3 cups daily consumption? Do you feel safe at home? Y What is your occupation? retired Have you fallen in the last 3 months? N Functional Status No Impairment. Past Encounters 11/04/2021 Vertigo; Benign Paroxysmal Positional Ve rtigo Nystagmus Paula Son, PT: [address] [facility] Sayda douglas, [address] [address], Ph. 10/21/2021 Vertigo; Benign Paroxysmal Positional Ve rtigo Nystagmus Paula Son, PT: [address] [facility] misael, [address] [address], Ph. 10/12/2021 Vertigo; Benign Paroxysmal Positional Ve rtigo Nystagmus Paula Son, PT: 81 [facility] misael, [address] [address], Ph. History of Present Illness ? [facility] PT Daily Reported By: Patient Subjective:: Subjective ; Reports (L) hip gives her a hard time, but needs a replacement, but won't do it , as she's too old. States at times she can have a couple second s of dizziness when she turns her body too quickly, but thinks that could be from her eyes. States she thinks she needs her eyes ex amined, as she did fall on her face.Is doing her HEP, but hasn't no alex much progress, but not sure if that's related to her genera l low energy.Approximately 10 minutes was spent in subjective repo rting Case History: Case History Narrative ; Davida ardon 10/12/21: 86 y.o. female referred for vertigo, which began 1 getting OOB. Patient reports almost daily episodes of vertigo an d dizziness since that time, with only approximately 5 days that we re good.PMH significant for: Adjustment disorder, sleep a pnea, Atrial fibrillation, Pain in right lower limb, Dysphagia, fatigue, (R) LE pain, fall 07/2021, thoracic spine pain, bradyca rdia, anemia of chronic renal failure, cystitis, angina, dyspnea on exertion, GERD, (R) bundle branch block, (R) sciatica, CAD, TI A, essential tremor, DM II, chronic kidney disease stage 4, atyp ical chest pain, MT, HTN, HLP, BPPV, and hypothyroidism.Today ariana moctezuma presents with some limitations of her cervical spine active ra nge of motion, which is to be expected to some degree as she has be en holding her head still to avoid triggering vertigo. Patient has decreased dynamic balance activities, however she is [age] and has bilateral foot neuropathy.She had positive right Stevens-Hallpike testing today, indicating right posterior c anal BPPV. PT was able to perform the Mary maneuver to address th is, with good results.PT is hopeful that with short-term interve ntion, the patient will have resolution of BPPV and impro vements in cervical spine range of motion/use, as well as some improvement in dynamic balance Pain Description:: Pain (location, nature, beha vior severity) ; (L) hip pain today Review of Systems None recorded. Physical Exam ? [facility] Vestibular, [facility] PT As sessment and Plan Reported By: Patient Rhomberg Test: Romberg Balance Test Tandem ; Eyes open: 2 fingers for support: (R) leg in front: 1st: 30 sec, 2nd: 30 sec. (L) leg i n front: 1st: 30 sec, 2nd: 30 secNo support: (R) in front: 5 sec x 2 trals, (L) in front 1st: 8 sec, 2nd: 13 sec Single Limb Stance: Single Leg Balance Right ; 2 fingers for support: 30 secNo support: 5 seconds. Single Leg Balance Left ; 2 fingers for support: 30 secNo support: 3 seconds *Patient Education: Patient Education Provided T sae ; Patient was educated to continue with HE P. Educated on progress thus far *Physical Therapy Assessment: Physical Therapy Assessm ent ; Patient reports cont resolution of BPPV symp toms. Patient was able to perform balance acti vities today with improved balance reactions a nd time Certification Dates (MEDICARE ONLY): Certification Fro m ; 10/12/2021. Certification To ; 11/11/2021 *Plan: Therapy Plan Continue as per plan of care *Time: Time In: ; 1030 am. Time Out : ; 1113. Total Time: ; 43 min. Dictation: T his document was dictated utilizing voice rec ognition software and may contain inadvertent errors
--- OUTSIDE RECORDS SUMMARY | 2021-12-29 19:11 | XMS_ITS | Encounter Summary ---
:1935 Author Care Team Providers Name Role Phone Traci Etta JON Primary Care Provider [phone] Omari Powell MD Borderer [phone] [employer] [facility] OTHER [phone] Reason for Visit vertigo Assessment and Plan [...] Code Code System Name Reaction Severity Onset 966888 RxNorm Bactrim ? ? ? 4053 RxNorm Erythromycin Base ? ? ? 052089 RxNorm Levaquin ? ? ? Penicillins ? [...] N Functional Status No Impairment. Past Encounters 10/12/2021 Vertigo; Benign Paroxysmal Positional Ve rtigo Nystagmus Paula Son, PT: [address] [facility] Sayda douglas, [address], [place] [address], Ph. History of Present Illness ? [facility] PT Evaluation Reported By: Patient Patient Case History:: Patient Case History ; Repor ts she fell 08/04/21 and fell forward on her face, broke her nose and required stitch es. States she was told she didn't have a c oncussion. States she also told them that (R) side of face felt full and her (R) eye was not acting like her (L) eye. Reports she had pos t neck pain after the fall and still does. Fir st episode of vertigo was getting OOB 08/25 12/12 and lasted a cuple mintues. Reports yeste rday was a bad day. Took a Meclizine around 9 am, which didn't seem to help that muc h. I can't do many things, as it seems to trigger it. I am trying to keep my head still . Feels like (R) eye is involved with the karen tigo Pertinent Past Medical History: Pertinent Past Medical History includes ; Vitamin D deficiency, Adjust ment disorder, sleep apnea, Atrial fibrilla tion, Pain in right lower limb, Dysphagia, fatigue, (R) LE pain, fall 07/2021, thoracic spine pain, bradycardia, anemia of chron ic renal failure, cystitis, angina, dyspnea on exertion, GERD, (R) bundle branch block, (R) sciatica, CAD, TIA, essential tremor, DM II , chronic kidney disease stage 4, atypical ch est pain, SD, HTN, HLP, BPPV, hypothyroidi sm Pertinent Past Surgical History: Pertinent Past Surgic al History includes ; Radical Mastectomy 2001, pac emaker 2019 Pertinent Medications: Pertinent Medications inclu keren ; Acetaminophen, aspirin, ator vastatin, carvedilol, cyanocobalamin ( vit B-12), Eliquis, glipizide, levothyr oxine, lisinopril, magnesium, primi done, Nitro, propanolol, Premarin, torsem ideMeclizine 1 tablet, 3x/day, prn *Barriers/Needs:: Barriers to Learning none id entified *Impairment Observations and Tolerance Previous Level of Function ; (I) ADLs and to Daily Living:: gait with cane use for the l ast year, 2* feeling like her LEs were no t as strong and that her balanc was not as g ood. Current Level of Function ; Turning to the (R) is the most triggering. In/out of b ed is difficult; has to sit for longer at the edge of bed. Normally is a side sleeper. If she is layng on (L) side she seems fine, but laying of (R) tends to bother; makes thing s spin and makes it hard to focus, which can last for a bit. States she has had a few goo d days, but most days there is something. Yes terday it seemed to last all day.Has tried to stop taking naps, as she would get verti go getting up from her nap Pain Description:: Pain (location, nature, beha vior severity) ; Post neck pain and ocassiona l pain (R) ear. comes and goesacheat worst: 3-4/10 and when it gets that bad, I just lay down.at best: pain free and currently Review of Systems None recorded. Physical Exam ? [facility] Vestibular, [facility] PT As sessment and Plan Reported By: Patient ROM: Cervical AROM flexion WNL, e xtension WNL, rotation right (45 deg.), ro tation left (45 deg.), side bending right (2 5 deg.), side bending left (20 deg.); Repo rts (R) eye had a hard time to focus with (R) ROT Vestibular Symptoms: Primary Vestibular Complaint s dysequilibrium, lightheadedness, vertigo, di plopia Vestibular Factors: Vestibular Exacerbating Fact ors bending over, turning head, rolling in bed , supine to/from sitting, walking in busy env ironment, durationminutes to all day ( yesterday only), frequencyalmost daily,; Stat es it's always different at different times . Vestibular Relieving Factors medication , sitting still, closing eyes Vestibular Concurrent Complaints: Vestibular Concurren t Complaints hearing loss , tinnitus left, nausea/vomiti ng, altered vision, poor concentration, cervical pain Sensory Cane Furniture Maker/Responsiveness: Proprioception: ; Pt reports (B) forefoot neuropathy. Vision: acuity W FL/no complaints/no changes, gaze WFL and symmet cira, smooth pursuits good, saccades good quick ey e movement to target of interest; Pt's eyes do no t converge Nystagmus Assessment: Spontaneous Nystagmus Room L ight: right: negative, negative left : negative, negative. Gaze Holding Nysta gmus Room Light: right: negative, negative left: negative, negative. Head Shaking Nyst agmus: normal Additional Vestibular Testing: Vertebral Artery Screen negative. VOR Cancellation normal Hallpike Test: Hallpike Test Right: (+) sig ns/symptoms, torsional, duration:15 sec, direction:right Balance: Standing Normal Base of Supp ort eyes open WNL/no complaints, eyes closed WNL/ no complaints Rhomberg Test: Romberg Balance Test able to complete eyes open and closed for 30 seconds, n o complaints. Romberg Balance Test Tandem ; Eyes open: 3 sec for both (R) and (L) LE in f ront Single Limb Stance: Single Leg Balance Right eye s open 5 seconds; Reports SLS make her feel a little dizzy. Single Leg Balance Left eyes open 4 seconds *Patient Education: Patient Education Provided T sae ; PT findings and course of care. Patient was educated on the vestibular system and the my stu of components were contribute to that syst em. Patient was educated to sleep with the h ead of the bed elevated to 45 degrees, if p ossible for tonight only. Patient was encourage d to keep track of symptoms between now and the next appointment *Physical Therapy Assessment: Physical Therapy Assessm ent ; 86 y.o. female referred for vertigo, which began 09/15/21 getting OOB. Patient reports almost daily episodes of vertigo and dizz iness since that time, with only approximatel y 5 days that were good.Patient's past medica l history is significant for: Adjustment disorder, sleep apnea, Atrial fibrillation, Pain in right lower limb, Dysphagia, fatigue, (R ) LE pain, fall 07/2021, thoracic spine pain , bradycardia, anemia of chronic renal fail ure, cystitis, angina, dyspnea on exertion, GERD, (R) bundle branch block, (R) sciatica, CAD, TIA, essential tremor, DM II, chronic kidne y disease stage 4, atypical chest pain, SD, HTN , HLP, BPPV, and hypothyroidism.Today patient presents with some limitations of her cervical spine active range of motion, which is to be ex pected to some degree as she has been holdi ng her head still to avoid triggering vertigo. Jere albrecht has decreased dynamic balance activities, however she is 86 and has bilateral foot neuro carly.She had positive right Rodger-Hallpike testing today, indicating right posterior c anal BPPV. PT was able to perform the Mary mckoy to address this, with good results.PT i s hopeful that with short-term intervention, the patient will have resolution of BPPV and impro vements in cervical spine range of motion/use, a s well as some improvement in dynamic morales ce. Rehab Potential: good rehab potential to shilpa ch the established goals Functional Outcome Measure (FOM): Patient was assessed using the following Functional Outcome Measure ( FOM): Dizziness Handicap Inventory (DHI) Short Term Goal(s): STGs Deferred: STGs deferred to LTGs Video Game Technician Goal(s): Video Game Technician Goals (including t bharat frames) ; 4 weeks:1. Resolution of posi tional vertigo.2. Improvements in dynamic adria nce activities by 5 seconds or greater to help m itigate fall risk Patient Goal(s): Patient Goal (s): ; Resoluti on of vertigo Certification Dates (MEDICARE ONLY): Certification Fro m ; 10/12/2021. Certification To ; 11/11/2021 Frequency: Treatment frequency: 1 time (s) a week Intensity: Treatment Intensity: 45 min Duration: Treatment duration: 4 week( s) Planned Treatment Interventions: PT Charge Code 26898: therapeutic exercises, 57654: therapeutic activity, 63530: manual therapy Discharge Plan: Discharge Plan: upon achievi ng goals or maximal benefit of therapy services *Time: Time In: ; 3:40 PM. Time Out : ; 4:55 PM. Total Time: ; 75 min. Dictation: T his document was dictated utilizing voice rec ognition software and may contain inadvertent errors
--- OUTSIDE RECORDS SUMMARY | 2021-12-29 19:11 | XMS_ITS | Encounter Summary ---
:1935 Author Care Team Providers Name Role Phone Traci Etta JON Primary Care Provider [phone] Omari Powell MD Tier In [phone] [employer] [facility] OTHER [phone] Reason for Visit vertigo Assessment and Plan [...] Code Code System Name Reaction Severity Onset 834432 RxNorm Bactrim ? ? ? 4053 RxNorm Erythromycin Base ? ? ? 241229 RxNorm Levaquin ? ? ? Penicillins ? [...] N Functional Status No Impairment. Past Encounters 11/11/2021 Vertigo; Benign Paroxysmal Positional Ve rtigo Nystagmus Paula Huy, PT: [address] [address], Ph. 11/04/2021 Vertigo; Benign Paroxysmal Positional Ve rtigo Nystagmus Paula Lewisin, PT: [address] [place] [phone], Ph. 10/21/2021 Vertigo; Benign Paroxysmal Positional Ve rtigo Nystagmus Paula Lewisin, PT: [address] [phone], Ph. 10/12/2021 Vertigo; Benign Paroxysmal Positional Ve rtigo Nystagmus Paula Lewisin, PT: [address] [place] [phone], Ph. History of Present Illness ? [facility] PT Daily Reported By: Patient Visit Type: Today's therapy visit: Prog ress Summary Subjective:: Subjective ; States no dizzi ness in the last week. Reports full reso lution of vertigo. Reports resolution of her eye flickering. Is doing her H EP. Reports she still feels fatigue every da y. Reports she feels she is able to continu e with the exercises independently at t his point Case History: Case History Narrative ; Davida ardon 10/12/21: 86 y.o. female referred for karen tigo, which began 09/15/21 getting OOB. Patient reports almost daily episodes of karen tigo and dizziness since that time, w ith only approximately 5 days that we re good.PMH significant for: Adjustment disorder, sleep apnea, Atrial fibrillation, Pain in right lower limb, Dysphagia, fatig ue, (R) LE pain, fall 07/2021, thoracic spine pain, bradycardia, anemia of chron ic renal failure, cystitis, angina, d yspnea on exertion, GERD, (R) bundle b ranch block, (R) sciatica, CAD, TIA, esse ntial tremor, DM II, chronic kidney diseas e stage 4, atypical chest pain, WI, HTN , HLP, BPPV, and hypothyroidism.Today ariana moctezuma presents with some limitations of her cervical spine active range of motion, whic h is to be expected to some degree as s he has been holding her head still to av oid triggering vertigo. Patient has decreas ed dynamic balance activities, however she is 86 and has bilateral foot neuropath y.She had positive right Rodger-Hallpike testing today, indicating right posterior c anal BPPV. PT was able to perform the Eple y maneuver to address this, with good resu lts.PT is hopeful that with short-term intervention, the patient will have resolu tion of BPPV and improvements in cervical spine range of motion/use, as well as some improvement in dynamic balance Impairment Observations and Tolerance to Current Level of Function ; Turning to the Daily Living:: (R) is no longer an issue.In /out of bed: no spinning, she conts to sit e dge of bed for a moment before getting up. Reports no issues with rolling in bed Pain Description:: Pain (location, nature, beha vior severity) ; Reports resolution of neck pain and (R) ear pain Review of Systems None recorded. Physical Exam ? [facility] PT Vestibular, [facility] PT As sessment and Plan Reported By: Patient Sensory Cotton Inspector/Responsiveness: Proprioception: ; Pt reports (B) forefoot neuropathy and (L) hip needs a replacement, but she doesn't want surgery Rhomberg Test: Romberg Balance Test Tandem ; Eyes open: 2 fingers for support: (R) leg in front: 30 sec. (L) leg in front: 30 secNo s upport (after using arms to get into test positi on): (R) in front: 30 seconds, (L) in front 1st : 8 sec and pt c/o increasing (L) hip painEyes closed: 3 sec for both (R) and (L) LE in front (from a previous session) Single Limb Stance: Single Leg Balance Right eye s open 7 seconds; 2 fingers for support: 30 sec. Single Leg Balance Left eyes open 2 seconds; 2 fingers for support: 30 sec c/o (L) hip pain limi ting today Performance Tests: Performance Tests: Neff adria nce test: 42 *Patient Education: Patient Education Provided T sae ; Patient was educated to continue with HE P. Educated on progress thus far. Patient was educated on hold policy. Patient was verball y instructed in adding sit to stand/chair sq uats, standing hip flexion, hip abduction, hip extension and mini squats at the counter to her HEP to continue to address lower extremity stre ngthening and reported difficulties with s it to stand *Physical Therapy Assessment: Physical Therapy Assessm ent ; 86 y.o. female referred for vertigo. The lee ann albrecht patient reports resolution of BPPV a nd dizziness. The patient demonstrates continu ed difficulties with higher level dynamic balance activities, however she has bilateral foot neuro carly and left hip pain that can limit her at t imes. Her Neff balance test is within kate l limits for age.She has essentially met goals se t at the evaluation. PT and patient agree that s he can continue independently with HEP at th is time. We also agreed to hold chart for 30 days, should any problems arise Functional Outcome Measure (FOM): Patient was assessed using the following Functional Outcome Measure ( FOM): Neff Balance Score, Dizziness Handicap In ventory (DHI) Short Term Goal(s): STGs Deferred: STGs deferred to LTGs Field Human Resources Manager Goal(s): Field Human Resources Manager Goals (including t bharat frames) ; 4 weeks:1. Resolution of posi tional vertigo. (MET) 2. Improvements in dy namic balance activities by 5 seconds or g reater to help mitigate fall risk. (ROD HAHN MET) Patient Goal(s): Patient Goal (s): ; Resoluti on of vertigo. (MET) Certification Dates (MEDICARE ONLY): Certification Fro m ; 10/12/2021. Certification To ; 11/11/2021 *Plan: Therapy Plan Patient will be placed on hold *Time: Time In: ; 12:48 PM. Time Ou t: ; 1:32 PM. Total Time: ; 44 min. Dictation: T his document was dictated utilizing voice rec ognition software and may contain inadvertent errors
--- OUTSIDE RECORDS SUMMARY | 2021-12-29 19:11 | XMS_ITS | Encounter Summary ---
:1935 Author Care Team Providers Name Role Phone Traci Etta JON Primary Care Provider [phone] Omari Powell MD Interface Control Officer [phone] Etherios [facility] OTHER [phone] Reason for Visit vertigo Assessment and Plan [...] Code Code System Name Reaction Severity Onset 240550 RxNorm Bactrim ? ? ? 4053 RxNorm Erythromycin Base ? ? ? 188661 RxNorm Levaquin ? ? ? Penicillins ? [...] N Functional Status No Impairment. Past Encounters 12/09/2021 Vertigo; Benign Paroxysmal Positional Ve rtigo Nystagmus Paula Son, PT: [address], [place] [address], Ph. 11/11/2021 Vertigo; Benign Paroxysmal Positional Ve rtigo Nystagmus Paula Son, PT: [address], [place] [address], Ph. History of Present Illness None recorded. Review of Systems None recorded. Physical Exam ? [facility] Rehab Discharge Summary (non patient visit) Reported By: Patient Rehab Discharge Summary: Therapy Diagnosis ; Vertigo and BPPV right ear, posterior,. Therapy Summary number of se ssions:4, Summary of treatment:. Reason for Discharge Patient placed on hold and did not contact Rehab with further n eeds or questions. Therapy Assessment ; Assessment on : 86 y.o. female referred for vertigo. The pa ambrocio patient reports resolution of BPPV and dizziness. The p atient demonstrates continued difficulties with higher lev el dynamic balance activities, however she has bilateral fo ot neuropathy and left hip pain that can limit her at times. Her Neff balance test is within normal limits for age. She h as essentially met goals set at the evaluation. PT and patie nt agree that she can continue independently with HEP at th is time. We also agreed to hold chart for 30 days, should an y problems arise.The patient has not contacted physical thera py since being placed on hold, therefore chart is appropria te for discharge. Goal Status: ; Below goal status was noted on 11/11/2021: STGs DeferredLong Term Goal(s) 4 weeks: 1. Res olution of positional vertigo. (MET) 2. Improvements in dyn amic balance activities by 5 seconds or greater to help m itigate fall risk. (ESSENTIALLY MET))Patient Goal (s): (Reso lution of vertigo. (MET)). Discharge Plan: discharge fr om therapy today
--- OUTSIDE RECORDS SUMMARY | 2021-12-29 19:11 | XMS_ITS ---
:1935 Author Care Team Providers Name Role Phone [facility] OTHER [phone] KIP KEE MD Maintainer Operator [phone] KATHARINA HENAO APRN Primary Care Provider [phone] Allergies Code Code System Name Reaction Severity Status Onset 571698 RxNorm Bactrim ? ? Active ? 4053 RxNorm Erythromycin Base ? ? Active ? 063824 RxNorm Levaquin ? ? Active ? Penicillins ? ? Active ? Medications Name Status Start Date Stop Date ? ? acetaminophen 325 mg tablet Active 02/05/2019 Not available Take 1000 mg every 6 hours by oral route as needed. Aleve 220 mg tablet Completed ? 02/05/2019 Take by oral route as needed. amiodarone 200 mg tablet Active ? Not noah ilable amlodipine 5 mg tablet Completed ? 9 Take 1 tablet every day by oral route. aspirin 81 mg tablet Active 02/05/2019 Not availab le Take 1 tablet every day by oral route. atorvastatin 20 mg tablet Active ? Not av ailable betamethasone valerate 0.1 % Completed ? topical ointment calcium Completed ? 02/05/2019 1000mg daily Cartia XT 120 mg Completed ? 02/05/2019 capsule,extended release Cartia XT 180 mg Completed ? 02/05/2019 capsule,extended release cefuroxime axetil 250 mg Active ? Not noah ilable tablet cephalexin 250 mg capsule Active ? Not av ailable cephalexin 500 mg capsule Active ? Not av ailable Take 1 capsule twice a day by oral route for 10 days. Clear Eyes Complete Completed ? 02/05/2019 clobetasol 0.05 % topical ointment Completed ? 02/05/2019 APPLY A THIN LAYER TO THE AFFECTED AREA(S) BY TOPICAL ROUTE as needed CoQ-10 Completed ? 02/05/2019 400mg daily cyanocobalamin (vit B-12) 500 mcg tablet Active ? Not available Take 1 tablet by mouth once daily Eliquis 2.5 mg tablet Active ? Not availa ble fluticasone propionate 50 Completed ? 2018 mcg/actuation nasal spray,suspension folic acid 800 mcg tablet Completed ? 2018 Take 1 tablet every day by oral route. glipizide ER 2.5 mg tablet, Active ? Not available extended release 24 hr hydralazine 10 mg tablet Active ? Not noah ilable hydrochlorothiazide 25 mg tablet Completed ? 02/05/2019 Take 1 tablet every day by oral route. hydrocodone 7.5 mg-acetaminophen 325 mg tablet Completed ? 04/10/2018 Take 1 tablet by oral route. Klor-Con M20 mEq Completed ? 02/05/2019 tablet,extended release levothyroxine 50 mcg tablet Active ? Not available levothyroxine 75 mcg tablet Active ? Not available Lidoderm 5 % topical patch Completed ? 02/05 APPLY 1 PATCH BY TRANSDERMAL ROUTE ONCE DAILY (MAY WEAR UP TO 1 2HOURS.) lisinopril 20 mg tablet Active ? Not avai lable lisinopril 40 mg tablet Active ? Not avai lable losartan 100 mg tablet Completed ? 9 Mag-G 27 mg magnesium (500 mg) tablet Active ? Not available take 1 tab twice daily magnesium amino acid chelate 27 mg tablet Active ? Not available TAKE 1 TABLET BY MOUTH IN THE EVENING. IF STILL GETTING LEG CRAMPS YOU MAY INCREASE TO TAKE 1 TABLET BY MOUTH TWICE DAILY metformin 500 mg tablet Completed ? 02/06/20 19 metformin 850 mg tablet Completed ? 02/06/20 19 metoprolol succinate ER 100 mg Active ? N ot available tablet,extended release 24 hr metoprolol succinate ER 200 mg Active ? N ot available tablet,extended release 24 hr metoprolol succinate ER 25 mg Active ? No t available tablet,extended release 24 hr metoprolol succinate ER 50 mg Active ? No t available tablet,extended release 24 hr MS Contin 15 mg tablet,extended release Completed 11/28/19 14 11/23/2014 1 (one) Tablet ER Tablet ER: two times daily naproxen sodium 220 mg capsule Completed 11/27/2013 0 11/23/2014 1 (one) Capsule Capsule: bid - twice daily nitrofurantoin macrocrystal Completed ? 01/22 100 mg capsule Nitrostat 0.4 mg sublingual tablet Active 02/05/[address] 1 tablet by sublingual route as needed. omega 3s 300 bx-pyx-squ-fish oil 1,000 mg capsule,delayed re lease Completed 11/27/2013 03/28/2017 2 tabs Capsule: daily omeprazole 20 mg Active ? Not available capsule,delayed release omeprazole 20 mg tablet,delayed release Active 02/06/20 19 Not available Take 1 tablet twice a day by oral route. oxycodone 5 mg capsule Completed 11/27/2013 5 1-2 Capsule Capsule: Three times daily as needed potassium Completed ? 02/05/2019 20 meq tablet daily Premarin 0.625 mg/gram vaginal Active ? N ot available cream propranolol 40 mg tablet Active ? Not noah ilable Replens Completed ? 02/05/2019 simvastatin 40 mg tablet Completed ? 019 Take 1 tablet every day by oral route. Stiolto Respimat 2.5 mcg-2.5 Completed ? mcg/actuation solution for inhalation sulfamethoxazole 800 Completed ? 02/05/2019 mg-trimethoprim 160 mg tablet torsemide 10 mg tablet Active ? Not avail able triamcinolone acetonide 0.1 % Completed ? topical cream Vitamin D3 50 mcg (2,000 unit) capsule Active ? Not available Take 1 capsule by mouth once daily Vitamin D3 50 mcg (2,000 unit) tablet Active ? Not available take 1 capsule once daily Xarelto 15 mg tablet Active ? Not availab le Xarelto 20 mg tablet Completed ? 02/05/2019 Notes: med rec updated 02/03/19. ALSO: STOP HOME DOSE OF AMIODARONE. Problems Name Status Onset Date Source ? Vitamin D Deficiency Active 04/25/2018 ? Fatigue Active 04/25/2018 ? Mixed Sleep Apnea Active 06/10/2018 ? Adjustment Disorder Active ? History Obstructive Sleep Apnea Syndrome Unknown ? History Central Sleep Apnea Syndrome Active ? ? Atrial Fibrillation Active ? History Pain in Right Lower Limb Active ? History Respiration Intermittent Active ? History Dysphagia Active ? History Long-term Drug Therapy Active ? History Procedure by Method Unknown ? History Procedures Date Name Performed by ? 07/15/2007 Colostomy Information not avai lable 09/24/2001 Mastectomy Information not avai lable Notes: Radical Results Lab Results Date Name Specimen Result Interpretation Description Value Range Status Address ? 05/11/2020 BMP, Serum S ? g/r 86 mg/dL 74-106 Final [place] [facility] mg[facility] [address] ? ? S High Bun 63 mg/dL 7-17 Final [facility] mg/dL [facility] : [address] ? ? S High Crea 3.20 mg/dL 0.52-1.04 Final Nor th mg/dL [facility] : [address] t ? ? S ? Ca 9.3 mg/dL 8.4-10.2 Final [facility] mg/dL [facility] ([facility] : [address] t ? ? S ? Na 139 mmol/L 137-145 Final [place] mmol/L [facility] : [address] t ? ? S ? K 4.2 mmol/L 3.5-5.1 Final [place] mmol/L [facility] ([facility] : [address] t ? ? S ? Cl 102 mmol/L 98-107 Final [place] mmol/L [facility] : [address] t ? ? S ? Tco2 27.0 mmol/L 22.0-30.0 Final No rth mmol/L [facility] ([facility] : [address] 04/28/2020 EKG Done by ? No ? ? ? N orth ED observati [facility]. ([facility] [employer] al): [address] 04/28/2020 EKG Done by ? No ? ? ? N orth ED observati [facility] ([facility] [employer] al): [address] 04/27/2020 CBC W/ Auto BLD ? Wbc 8.1 10*3/uL 5.0-10.0 F inal [place] Diff 10*3/uL [facility] ([facility] : [address] ? ? BLD Low Rbc 3.68 4.10-5.30 Final [place] 10*6/uL 10*6/uL [facility] ([facility] : [address] ? ? BLD ? Hgb 12.3 g/dL 12.0-16.0 Final Nort h g/dL [facility] ([facility] : [address] ? ? BLD ? Hct 38.3 % 37.0-47.0 Final [facility] % [facility] : [address] ? ? BLD High Mcv 104.1 fL 80.0-96.0 Final [facility] fL [facility] ([facility] : [address] t ? ? BLD High Mch 33.4 pg 26.0-32.0 Final [place] pg [facility] ([facility] : [address] ? ? BLD ? Mchc 32.1 g/dL 31.0-35.0 Final Nort h g/dL [facility] ([facility] : [address] t ? ? BLD ? Rdw 14.1 % 11.5-14.5 Final [facility] % [facility] ([facility] : [address] ? ? BLD ? Plt 244 10*3/uL 130-450 Final Nort h 10*3/uL [facility] ([facility] : [address] t 04/27/2020 BMP, Serum S ? g/r 77 mg/dL 74-106 Final [place] or Plasma mg/dL [facility] ([facility] : [address] t ? ? S High Bun 58 mg/dL 7-17 Final [facility] mg/dL [facility] ([facility] : [address] ? ? S High Crea 2.90 mg/dL 0.52-1.04 Final Nor th mg/dL [facility] ([facility] : [address] t ? ? S ? Ca 10.0 mg/dL 8.4-10.2 Final Nort h mg/dL [facility] ([facility] : [address] t ? ? S ? Na 140 mmol/L 137-145 Final [facility] mmol/L [facility] ([facility] : [address] ? ? S ? K 4.4 mmol/L 3.5-5.1 Final [facility] mmol/L [facility] ([facility] : [address] t ? ? S ? Cl 104 mmol/L 98-107 Final [place] mmol/L [facility] L [facility] (Internal) : [address] t ? ? S ? Tco2 25.0 mmol/L 22.0-30.0 Final No rth mmol/L [facility] L [facility] (Internal) : [address] 04/27/2020 Troponin I, S ? Trop <0.06 NG/mL 0.00-0.06 Final [place] Serum or NG/mL [facility] Plasma Hospital L ab (Internal) : [address] 04/27/2020 Differential BLD ? Polys 57 % 40-75 % Final [place] , [facility], [facility] Blood Hospital L ab (Internal) : [address] ? ? BLD ? Bands 0 % 0-5 % Final [facility] (Internal) : [address] ? ? BLD ? Lymphs 24 % 20-50 % Final [facility] L [facility] (Internal) : [address] ? ? BLD High Shoshone 13 % 2-10 % Final [facility] L [facility] (Internal) : [address] ? ? BLD ? Eos 4 % 0-6 % Final [facility] L [facility] (Internal) : [address] ? ? BLD High Baso 2 % 0-1 % Final [facility] L [facility] (Internal) : [address] ? ? BLD ? Atyp 0 % ? Final [facility] Hospital L [facility] (Internal) : [address] ? ? BLD ? Plts, adequate adequate Final [facility] Hospital L ab (Internal) : [address] t ? ? BLD ABNORMA RBC abnormal normal Final [facility] : [address] t ? ? BLD ? Macro small ? Final [facility] L ab (Internal) : [address] t ? ? BLD ? Poik occasional ? Final [place] [hpf] [facility] L [facility] (Internal) : [address] 04/27/2020 Neutrophil BLD ? Anc-manu 4.64 ? Final [place] Count, al 10*3/uL [facility] Lab (Anc), Blood (Int ernal): [address] 04/27/2020 Nlr-manual BLD ? Nlr - 2.38 0.00-3.20 Final [facility] Manual [facility] : [address] 09/10/2019 BMP, Serum S - g/r 101 mg/dL 74-106 Final [place] or Plasma mg/dL [facility] ([facility] : [address] ? ? S High Bun 56 mg/dL 7-17 Final North mg/dL [facility] L [facility] (Internal) : [address] ? ? S High Crea 3.00 mg/dL 0.52-1.04 Final Nor th mg/dL [facility] : [address] ? ? S - Ca 9.8 mg/dL 8.4-10.2 Final North mg/dL [facility] L [facility] (Internal) : [address] ? ? S - Na 140 mmol/L 137-145 Final [place] mmol/L [facility] L [facility] (Internal) : [address] ? ? S - K 3.8 mmol/L 3.5-5.1 Final [place] mmol/L [facility] L [facility] (Internal) : [address] ? ? S - Cl 103 mmol/L 98-107 Final [place] mmol/L [facility] L ab (Internal) : [address] ? ? S - Tco2 27.0 mmol/L 22.0-30.0 Final No rth mmol/L [facility] L ab (Internal) : [address], [address] 06/26/2019 PTH S High Intact 190 pg/mL 19-88 Final No rth (Parathyroid PTH pg/mL Coun try Hormone), Hospita l Lab Intact, (Internal ): Serum or [address] 06/26/2019 T4, Free, S - Ft4 1.32 NG/dL 0.78-2.19 Fin al [place] Serum NG/dL [facility] [address] 06/26/2019 Thyroid S High Tsh 7.20 0.47-4.68 Final No rth [place], u[IU]/mL u[IU]/mL Coun [facility] Serum Hospital L ab (Internal) : [address] 06/26/2019 Phosphorus, S High Phos 4.7 mg/dL 2.5-4.5 Zena l [place] Serum or mg/dL [facility] Plasma Hospital L ab (Internal) : [address] 04/23/2019 CBC W/ Auto BLD High Wbc 15.1 5.0-10.0 Final [place] Diff 10*3/uL 10*3/uL [facility] Hospital L ab (Internal) : [address] ? ? BLD Low Rbc 3.46 4.10-5.30 Final [place] 10*6/uL 10*6/uL [facility] Hospital L ab (Internal) : [address] polo ? ? BLD Low Hgb 11.5 g/dL 12.0-16.0 Final Nort h g/dL [facility] L ab (Internal) : [address] ? ? BLD Low Hct 35.3 % 37.0-47.[address] [facility] L ab (Internal) : [address] [place] ? ? BLD High Mcv 102.0 fL 80.0-96.0 Final [facility] L ab (Internal) : [address] polo ? ? BLD High Mch 33.2 pg 26.0-32.0 Final [facility] L ab (Internal) : [address] [place] ? ? BLD - Mchc 32.6 g/dL 31.0-35.0 Final Nort h g/dL [facility] L ab (Internal) : [address] polo ? ? BLD - Rdw 13.9 % 11.5-14.[address] [facility] L [facility] (Internal) : [address] ? ? BLD - Plt 265 10*3/uL 130-450 Final Nort h 10*3/uL [facility] L ab (Internal) : [address] t 04/23/2019 CMP, Serum S High g/r 123 mg/dL 74-106 Final [place] or Plasma mg/dL [facility] L [facility] (Internal) : [address] t ? ? S High Bun 53 mg/dL 7-17 Final [facility] mg/dL [facility] : [address] ? ? S High Crea 2.90 mg/dL 0.52-1.04 Final Nor th mg/dL [facility] ([facility] : [address] ? ? S - Ca 9.6 mg/dL 8.4-10.2 Final [facility] mg/dL [facility] ([facility] : [address] t ? ? S Low Na 135 mmol/L 137-145 Final [facility] mmol/L [facility] ([facility] : [address] ? ? S - K 4.2 mmol/L 3.5-5.1 Final [facility] mmol/L [facility] ([facility] : [address] t ? ? S - Cl 99 mmol/L 98-107 Final [facility] mmol/L [facility] (Internal[facility] : [address] ? ? S - Tco2 25.0 mmol/L 22.0-30.0 Final No rth mmol/L [facility] (Internal) : [address] ? ? S - Tp 7.9 g/dL 6.3-8.2 Final [facility] g/dL [facility] (Internal[facility] : [address] ? ? S - Alb 4.2 g/dL 3.5-5.0 Final [facility] g/dL [facility] ([facility] : [address] ? ? S - Tbil 0.5 mg/dL 0.2-1.3 Final [facility] mg/dL [facility] ([facility] : [address] ? ? S - Alp 64 U/L 38-126 Final [facility] U/L [facility] : [address] ? ? S - Alt 16 U/L 9-52 U/L Final North (Sgpt) [facility] L ab (Internal) : [address] ? ? S - Ast 32 U/L 14-36 U/L Final [place] (Sgot) [facility] Hospital L ab (Internal) : [address] 04/23/2019 Lipase, S - Lip 92 U/L 23-300 Final [place] Serum or U/L [facility] Plasma Hospital L ab (Internal) : [address] 04/23/2019 Differential BLD High Polys 81 % 40-75 % Final [facility], [facility] Blood Hospital L ab (Internal) : [address] ? ? BLD - Bands 0 % 0-5 % Final [facility] Hospital L ab (Internal) : [address] ? ? BLD Low Lymphs 8 % 20-50 % Final [facility] Hospital L ab (Internal) : [address] ? ? BLD High Shoshone 11 % 2-10 % Final [facility] L ab (Internal) : [address] ? ? BLD - Eos 0 % 0-6 % Final [facility] L ab (Internal) : [address] ? ? BLD - Baso 0 % 0-1 % Final [facility] L ab (Internal) : [address] ? ? BLD - Atyp 0 % ? Final [facility] Hospital L ab (Internal) : [address] ? ? BLD - Plts, adequate adequate Final [facility] Hospital L ab (Internal) : [address] ? ? BLD ABNORMA RBC abnormal normal Final [facility] L ab (Internal) : [address] ? ? BLD - Macro small ? Final [facility] L ab (Internal) : [address] ? ? BLD - Polychro occasional ? Final [facility] Hospital L ab (Internal) : [address] 04/23/2019 Neutrophil BLD - Anc-manu 12.19 ? Final [place] Count, al 10*3/uL [facility] (Anc), Blood (Int ernal): [address] 04/23/2019 Urinalysis, UR - UA-color yellow pale Final [place] Dipstick, yellow [facility] (Internal) : [address] ? ? UR ABNORMA UA-appea cloudy clear Final [facility] L [facility] : [address] ? ? UR - UA-spec 1.010 1.003-1.0 Final North Grav 35 [facility] ab (Internal) : [address] ? ? UR - UA-pH 5.5 [pH] 4.6-8.0 Final [place] [pH] [facility] ab (Internal) : [address] ? ? UR ABNORMA UA-leuk large negative Final [facility] (Internal) : [address] t ? ? UR - UA-nitri negative negative Final Nor te [facility] ab (Internal) : [address] t ? ? UR ABNORMA UA-prot trace negative Final [facility] (Internal) : [address] ? ? UR - UA-gluc negative negative Final [facility] (Internal) : [address] t ? ? UR - UA-keton negative negative Final Nor e [facility] (Internal) : [address] ? ? UR - UA-urobi normal normal Final [facility] (Internal) : [address] t ? ? UR - UA-bili negative negative Final [facility] (Internal) : [address] ? ? UR ABNORMA UA-blood moderate negative Final No rth [facility] (Internal) : [address] 04/23/2019 Urinalysis, UR ABNORMA UA-WBC >100 [hpf] 0-3 [hpf] Final [place] Microscopic L Count [facility] ab (Internal) : [address] ? ? UR ABNORMA UA-RBC 5-10 [hpf] 0-2 [hpf] Final N orth L [facility] ab (Internal) : [address] t ? ? UR ABNORMA UA-bacte many [hpf] none seen Final [facility] khushboo [hpf] [facility] (Internal) : [address] ? ? UR ABNORMA UA-epith few [hpf] none seen Final [place] L elial [hpf] [facility] (Internal) : [address] ? ? UR - UA-mucus none seen none seen Final N orth [hpf] [hpf] [facility] (Internal[facility] : [address] 04/23/2019 Culture UR - Final microbiolog ? Final [place] ([place] y results Countr y Count), Hospital Lab Urine (Internal) : [address] 02/05/2019 CBC W/ Auto BLD High Wbc 10.3 5.0-10.0 Final [place] Diff 10*3/uL 10*3/uL [facility] L ab (Internal) : [address] ? ? BLD Low Rbc 2.94 4.10-5.30 Final [place] 10*6/uL 10*6/uL [facility] L ab (Internal) : [address] [place] ? ? BLD Low Hgb 9.7 g/dL 12.0-16.0 Final [place] g/dL [facility] L ab (Internal) : [address] [place] ? ? BLD Low Hct 29.6 % 37.0-47.[address] [facility] L ab (Internal) : [address] ? ? BLD High Mcv 100.7 fL 80.0-96.0 Final [facility] L ab (Internal) : [address] ? ? BLD High Mch 33.0 pg 26.0-32.0 Final [place] pg [facility] L ab (Internal) : [address] ? ? BLD - Mchc 32.8 g/dL 31.0-35.0 Final Nort h g/dL [facility] Hospital L ab (Internal) : [address] ? ? BLD - Rdw 14.1 % 11.5-14.[address] [facility] L ab (Internal) : [address] [place] ? ? BLD - Plt 229 10*3/uL 130-450 Final Nort h 10*3/uL [facility] L ab (Internal) : [address] 02/05/2019 CMP, Serum S High g/r 131 mg/dL 74-106 Final North or Plasma mg/dL [facility] L ab (Internal) : [address], [place] ? ? S High Bun 45 mg/dL 7-17 Final [facility] mg/dL [facility] : [address] ? ? S High Crea 3.20 mg/dL 0.52-1.04 Final Nor th mg/dL [facility] (Internal) : [address] t ? ? S - Ca 8.6 mg/dL 8.4-10.2 Final [facility] mg/dL [facility] (Internal[facility] : [address] t ? ? S - Na 137 mmol/L 137-145 Final [facility] mmol/L [facility] (Internal) : [address] t ? ? S - K 4.0 mmol/L 3.5-5.1 Final [facility] mmol/L [facility] (Internal) : [address] t ? ? S High Cl 112 mmol/L 98-107 Final [facility] mmol/L [facility] (Internal) : [address] t ? ? S Low Tco2 18.0 mmol/L 22.0-30.0 Final No rth mmol/L [facility] (Internal) : [address] t ? ? S Low Tp 6.1 g/dL 6.3-8.2 Final [facility] g/dL [facility] (Internal) : [address] t ? ? S Low Alb 3.1 g/dL 3.5-5.0 Final [facility] g/dL [facility] (Internal) : [address] t ? ? S - Tbil 0.4 mg/dL 0.2-1.3 Final [facility] mg/dL [facility] (Internal[facility] : [address] ? ? S - Alp 54 U/L 38-126 Final [facility] U/L [facility] (Internal[facility] : [address] t ? ? S - Alt 37 U/L 9-52 U/L Final [place] (Sgpt) [facility] Hospital L ab (Internal) : [address] ? ? S - Ast 25 U/L 14-36 U/L Final [place] (Sgot) [facility] Hospital L ab (Internal) : [address] 02/05/2019 Differential BLD - Polys 73 % 40-75 % Final [facility] Blood Hospital L ab (Internal) : [address] t ? ? BLD - Bands 0 % 0-5 % Final [facility] Hospital L ab (Internal) : [address] t ? ? BLD Low Lymphs 14 % 20-50 % Final [facility] Hospital L ab (Internal) : [address] t ? ? BLD - Shoshone 8 % 2-10 % Final [facility] Hospital L ab (Internal) : [address] t ? ? BLD - Eos 3 % 0-6 % Final [facility] Hospital L ab (Internal) : [address] ? ? BLD - Baso 1 % 0-1 % Final [facility] Hospital L ab (Internal) : [address] t ? ? BLD - Atyp 0 % ? Final [facility] Hospital L ab (Internal) : [address] t ? ? BLD High Young 1 % 0-0 % Final [facility] Hospital L ab (Internal) : [address] t ? ? BLD - Plts, adequate adequate Final [facility] Hospital L ab (Internal) : [address] t ? ? BLD ABNORMA RBC abnormal normal Final [facility] y Hospital L ab (Internal) : [address] t ? ? BLD - Karen occasional ? Final [facility] Hospital L ab (Internal) : [address] t ? ? BLD - Macro occasional ? Final [facility] Hospital L ab (Internal) : [address] t ? ? BLD - Roulx occasional ? Final [facility] Hospital L ab (Internal) : [address] 02/05/2019 Neutrophil BLD - Anc-manu 7.50 ? Final [place] Count, al 10*3/uL [facility] Lab (Anc), Blood (Int ernal): [address] 02/04/2019 CBC W/ Auto BLD - Wbc 6.9 10*3/uL 5.0-10.0 F inal [place] Diff 10*3/uL [facility] Hospital L ab (Internal) : [address] ? ? BLD Low Rbc 2.77 4.10-5.30 Final North 10*6/uL 10*6/uL [facility] (Internal[facility] : [address] ? ? BLD Low Hgb 9.1 g/dL 12.0-16.0 Final North g/dL [facility] Hospital L ab (Internal) : [address] ? ? BLD Low Hct 28.3 % 37.0-47.0 Final North % [facility] Hospital L ab (Internal) : [address] ? ? BLD High Mcv 102.2 fL 80.0-96.0 Final [place] fL [facility] L ab (Internal) : [address] ? ? BLD High Mch 32.9 pg 26.0-32.[address] [place] [address] [facility] L ab (Internal) : [address] ? ? BLD - Mchc 32.2 g/dL 31.0-35.0 Final Nort h g/dL [facility] L ab (Internal) : [address] ? ? BLD - Rdw 13.9 % 11.5-14.5 Final [place] % [facility] L ab (Internal) : [address] ? ? BLD - Plt 196 10*3/uL 130-450 Final Nort h 10*3/uL [facility] L ab (Internal) : [address] 02/04/2019 CMP, Serum S High g/r 109 mg/dL 74-106 Final [place] or Plasma mg/dL [facility] L ab (Internal) : [address] ? ? S High Bun 57 mg/dL 7-17 Final North mg/dL [facility] L ab (Internal) : [address] ? ? S High Crea 3.80 mg/dL 0.52-1.04 Final [place] mg/dL [facility] L ab (Internal) : [address] ? ? S Low Ca 8.1 mg/dL 8.4-10.2 Final North mg/dL [facility] L ab (Internal) : [address] ? ? S - Na 137 mmol/L 137-145 Final [facility] mmol/L [facility] L ab (Internal) : [address] ? ? S - K 4.3 mmol/L 3.5-5.1 Final [place] mmol/L [facility] L ab (Internal) : [address] t ? ? S High Cl 109 mmol/L 98-107 Final [place] mmol/L [facility] L ab (Internal) : [address] ? ? S Low Tco2 20.0 mmol/L 22.0-30.0 Final No rth mmol/L [facility] L ab (Internal) : [address] t ? ? S Low Tp 5.6 g/dL 6.3-8.2 Final [place] g/dL [facility] L ab (Internal) : [address] t ? ? S Low Alb 2.9 g/dL 3.5-5.0 Final [place] g/dL [facility] L ab (Internal) : [address] t ? ? S - Tbil 0.3 mg/dL 0.2-1.3 Final [place] mg/dL [facility] L ab (Internal) : [address] t ? ? S - Alp 45 U/L 38-126 Final [place] U/L [facility] L ab (Internal) : [address] t ? ? S - Alt 34 U/L 9-52 U/L Final [place] (Sgpt) [facility] L ab (Internal) : [address] t ? ? S - Ast 27 U/L 14-36 U/L Final [place] (Sgot) [facility] L ab (Internal) : [address] 02/04/2019 Differential BLD - Polys 63 % 40-75 % Final [place] , [facility] L ab (Internal) : [address] ? ? BLD - Bands 0 % 0-5 % Final [facility] L ab (Internal) : [address] ? ? BLD Low Lymphs 15 % 20-50 % Final [facility] L ab (Internal) : [address] ? ? BLD High [place] 15 % 2-10 % Final [facility] L ab (Internal) : [address] t ? ? BLD - Eos 6 % 0-6 % Final [facility] L ab (Internal) : [address] t ? ? BLD - Baso 0 % 0-1 % Final [facility] L ab (Internal) : [address] t ? ? BLD - Atyp 0 % ? Final [facility] L ab (Internal) : [address] t ? ? BLD - Myelo 1 % ? Final [facility] L ab (Internal) : [address] t ? ? BLD - Plts, adequate adequate Final [facility] L ab (Internal) : [address] t ? ? BLD ABNORMA RBC abnormal normal Final [facility] L ab (Internal) : [address] t ? ? BLD - [place] occasional ? Final [facility] ab (Internal) : [address] t ? ? BLD - Macro small ? Final [facility] L ab (Internal) : [address] t ? ? BLD - Polychro occasional ? Final [facility] L ab (Internal) : [address] t ? ? BLD - Schist rare ? Final [facility] L ab (Internal) : [address] t ? ? BLD - Oval occasional ? Final [facility] ab (Internal) : [address] 02/04/2019 Neutrophil BLD - Anc-manu 4.37 ? Final [place] Count, al 10*3/uL [facility] Hospital Lab (Anc), Blood (Int ernal): [address] 02/03/2019 CBC W/ Auto BLD High Wbc 10.3 5.0-10.0 Final [place] Diff 10*3/uL 10*3/uL [facility] L ab (Internal) : [address] t ? ? BLD Low Rbc 3.30 4.10-5.30 [facility] 10*6/uL 10*6/uL [facility] L ab (Internal) : [address] t ? ? BLD Low Hgb 10.9 g/dL 12.0-16.0 Final [facility] g/dL [facility] L ab (Internal) : [address] ? ? BLD Low Hct 33.5 % 37.0-47.0 Final North % [facility] L ab (Internal) : [address] ? ? BLD High Mcv 101.5 fL 80.0-96.0 Final [facility] L ab (Internal) : [address] ? ? BLD High Mch 33.0 pg 26.0-32.[address] [place] [address] [facility] L ab (Internal) : [address] ? ? BLD - Mchc 32.5 g/dL 31.0-35.0 Final Nort h g/dL [facility] L ab (Internal) : [address] ? ? BLD - Rdw 13.7 % 11.5-14.5 Final [facility] L ab (Internal) : [address] ? ? BLD - Plt 252 10*3/uL 130-450 Final Nort h 10*3/uL [facility] L ab (Internal) : [address] 02/03/2019 Differential BLD High Polys 78 % 40-75 % Final [place] , [facility], [facility] L ab (Internal) : [address] ? ? BLD - Bands 2 % 0-5 % Final [facility] L ab (Internal) : [address] ? ? BLD Low Lymphs 8 % 20-50 % Final [facility] L ab (Internal) : [address] ? ? BLD - [place] 9 % 2-10 % Final [facility] L ab (Internal) : [address] ? ? BLD - Eos 2 % 0-6 % Final [facility] L ab (Internal) : [address] ? ? BLD - Baso 1 % 0-1 % Final [facility] L ab (Internal) : [address] ? ? BLD - Atyp 0 % ? Final [facility] L ab (Internal) : [address] ? ? BLD - Plts, adequate adequate [facility] [place] [facility] [address] t ? ? BLD ABNORMA RBC abnormal normal Final [place] L [facility] ([facility] : [address] ? ? BLD - Macro occasional ? Final [facility] L ab (Internal) : [address] 02/03/2019 Neutrophil BLD - Anc-manu 8.24 ? Final [place] Count, al 10*3/uL [facility] Hospital Lab (Anc), Blood (Int ernal): [address] 02/03/2019 CMP, Serum S High g/r 150 mg/dL 74-106 Final [place] or Plasma mg/dL [facility] L ab (Internal) : [address] ? ? S High Bun 72 mg/dL 7-17 Final North mg/dL [facility] L ab (Internal) : [address] ? ? S High Crea 4.60 mg/dL 0.52-1.04 Final Nor th mg/dL [facility] L ab (Internal) : [address] ? ? S - Ca 9.5 mg/dL 8.4-10.2 Final North mg/dL [facility] L ab (Internal) : [address] ? ? S Low Na 132 mmol/L 137-145 Final North mmol/L [facility] L ab (Internal) : [address] ? ? S - K 4.9 mmol/L 3.5-5.1 Final North mmol/L [facility] L ab (Internal) : [address] ? ? S Low Cl 95 mmol/L 98-107 Final [place] mmol/L [facility] L ab (Internal) : [address] ? ? S - Tco2 22.0 mmol/L 22.0-30.0 Final No rth mmol/L [facility] L ab (Internal) : [address] ? ? S - Tp 7.4 g/dL 6.3-8.2 Final North g/dL [facility] L ab (Internal) : [address] ? ? S - Alb 4.0 g/dL 3.5-5.0 Final North g/dL [facility] L ab (Internal) : [address] ? ? S - Tbil 0.5 mg/dL 0.2-1.3 Final [place] mg/dL [facility] L ab (Internal) : [address] ? ? S - Alp 56 U/L 38-126 Final [place] U/L [facility] L ab (Internal) : [address] ? ? S - Alt 37 U/L 9-52 U/L Final [place] (Sgpt) [facility] L ab (Internal) : [address] ? ? S - Ast 33 U/L 14-36 U/L Final [place] (Sgot) [facility] L ab (Internal) : [address] [facility] 02/03/2019 Lipase, S - Lip 146 U/L 23-300 [facility] L ab (Internal) : [address] [facility] 02/03/2019 HbA1C BLD - Ha1C 5.2 % 4.0-6.0 % Final [facility] th (Hemoglobin Count ry a1C), Blood Hospi alva Lab (Internal) : [address] [facility] 02/03/2019 Culture UR - Final microbiolog ? Final [place] ([place] y results Countr y Count), Hospital Lab Urine (Internal) : [address] [facility] 02/03/2019 TSH, Serum S - Tsh 3.23 0.47-4.68 Final [place] or Plasma u[IU]/mL u[IU]/mL [facility] L ab (Internal) : [address] [facility] 02/03/2019 Sodium, UR - Na, Spot 63 mmol/L 30-90 Final [place] Urine U mmol/L [facility] L ab (Internal) : [address] [facility] 02/03/2019 Creatinine, UR - U-crea, 45 mg/dL 30-125 Zena l [place] Urine Spot mg/dL [facility] L ab (Internal) : [address] [facility] 02/03/2019 Urinalysis, UR - UA-color pale yellow pale Final [place] Complete yellow [facility] L ab (Internal) : [address] ? ? UR ABNORMA UA-appea hazy clear Final [place] L r [facility] L ab (Internal) : [address] ? ? UR - UA-spec 1.015 1.003-1.0 Final [place] Grav [address] [place] [address] ab (Internal) : [address] ? ? UR - UA-pH 5.0 [pH] 4.6-8.0 Final [place] [pH] [facility] ab (Internal) : [address] ? ? UR - UA-leuk negative negative Final [facility] ab (Internal) : [address], [place] ? ? UR - UA-nitri negative negative Final [facility] ab (Internal) : [address] [place] ? ? UR ABNORMA UA-prot 1+ negative Final [facility] ab (Internal) : [address] [place] ? ? UR - UA-gluc negative negative Final [facility] ab (Internal) : [address] ? ? UR - UA-keton negative negative Final [facility] ab (Internal) : [address] ? ? UR - UA-urobi normal normal Final [facility] ab (Internal) : [address] ? ? UR - UA-bili negative negative Final [facility] ab (Internal) : [address] ? ? UR - UA-blood negative negative Final [facility] ab (Internal) : [address] t ? ? UR - UA-WBC 0-3 [hpf] 0-3 [hpf] Final [facility] ab (Internal) : [address] ? ? UR - UA-RBC 0-2 [hpf] 0-2 [hpf] Final [facility] ab (Internal) : [address] ? ? UR - UA-bacte none seen none seen Final N orth khush[facility]o [hpf] [hpf] [facility] ab (Internal) : [address] ? ? UR - UA-epith rare [hpf] none seen Final [facility] [hpf] [facility] ab (Internal) : [address] ? ? UR - UA-mucus none seen none seen Final N orth [hpf] [hpf] [facility] L ab (Internal) : [address] 02/03/2019 Urea UR Low Un Spot 272.0 mg/dL 350.0-100 Fin al [place] Nitrogen, U 0.0 mg/dL Coun try Urine Hospital L ab (Internal) : [address] 04/10/2018 Vitamin B12, S - Vit B12 310.0 pg/mL 239.0-9 31 Final [place] Serum .0 pg/mL [facility] L ab (Internal) : [address] 04/10/2018 Vitamin D, S - 25-Fithian <4.0 NG/mL ? Fi nal [place] 25-Hydroxy, xy D2 Count ry Total, Serum Hosp ital Lab (Internal) : [address] ? ? S - 25-Fithian 31 NG/mL ? Final [place] xy D3 [facility] L ab (Internal) : [address] ? ? S - 25-Fithian 31 NG/mL ? Final [place] xy D [facility] Total Hospital L ab (Internal) : [address] 08/26/2017 Culture, UR ? Final microbiolog ? Final [place] Urine y results [facility] ab (Internal) : [address] 08/26/2017 sensitivitie MISC ? Sens* ? ? Final [place] s[I] [facility] L ab (Internal) : [address] 08/26/2017 Urinalysis, URAN ? UA-color pale yellow pale Final [place] Dipstick, yellow [facility] L ab (Internal) : [address] ? ? URAN ABNORMA UA-appea hazy clear Final [facility] Hospital L ab (Internal) : [address] ? ? URAN ? UA-spec 1.020 1.003-1.0 Final [place] Grav 35 [facility] L ab (Internal) : [address] ? ? URAN ? UA-pH 5.5 [pH] 4.6-8.0 Final [place] [pH] [facility] L ab (Internal) : [address] ? ? URAN ABNORMA UA-leuk moderate negative Final Nor th L Est [facility] L ab (Internal) : [address] t ? ? URAN ? UA-nitri negative negative Final [facility] L ab (Internal) : [address] t ? ? URAN ABNORMA UA-prot 2+ negative Final [facility] L ab (Internal) : [address] t ? ? URAN ? UA-gluc negative negative Final [facility] L ab (Internal) : [address] t ? ? URAN ? UA-keton negative negative Final [facility] L ab (Internal) : [address] t ? ? URAN ? UA-urobi normal normal Final [facility] ab (Internal) : [address] t ? ? URAN ? UA-bili negative negative Final [facility] L ab (Internal) : [address] t ? ? URAN ABNORMA UA-blood trace negative [facility] ab (Internal) : [address] t 08/26/2017 C Diff Toxin STOOL ? C. Diff negative negative F inal [place] Genes, Qual, ([facility]) Coun try PCR, Stool Hospit al Lab (Internal) : [address] t 08/26/2017 Neutrophil BLD ? Anc-manu 2.70 ? Final [place] Count, al 10*3/uL [facility] Hospital Lab (Anc), Blood (Int ernal): [address] 08/26/2017 Differential BLD Low Polys 36 % 40-75 % Final [facility] Blood Hospital L ab (Internal) : [address] t ? ? BLD High Bands 8 % 0-5 % Final [facility] L ab (Internal) : [address] t ? ? BLD ? Lymphs 38 % 20-50 % Final [facility] L ab (Internal) : [address] t ? ? BLD High [place] 16 % 2-10 % Final [facility] L ab (Internal) : [address] t ? ? BLD ? Eos 0 % 0-6 % Final [facility] L ab (Internal) : [address] t ? ? BLD ? Baso 0 % 0-1 % Final [facility] L ab (Internal) : [address] ? ? BLD ? Atyp 0 % ? Final [facility] Hospital L ab (Internal) : [address] ? ? BLD ? [place] 2 % ? Final [facility] L ab (Internal) : [address] ? ? BLD ? Plts, adequate adequate Final [place] Est. [facility] L ab (Internal) : [address] ? ? BLD ? RBC normal normal Final [place] [facility] (Internal) : [address] 08/26/2017 Lipase, S ? Lip 95 U/L 23-300 Final [place] Serum or U/L [facility] Plasma Hospital L ab (Internal) : [address] 08/26/2017 CMP, Serum S High g/r 216 mg/dL 74-106 Final [place] or Plasma mg/dL [facility] L ab (Internal) : [address] ? ? S High Bun 39 mg/dL 7-17 Final North mg/dL [facility] L ab (Internal) : [address] ? ? S High Crea 2.00 mg/dL 0.52-1.04 Final Nor th mg/dL [facility] L ab (Internal) : [address] t ? ? S ? Ca 10.1 mg/dL 8.4-10.2 Final Nort h mg/dL [facility] L ab (Internal) : [address] t ? ? S ? Na 140 mmol/L 137-145 Final [place] mmol/L [facility] L ab (Internal) : [address] t ? ? S ? K 4.4 mmol/L 3.5-5.1 Final [place] mmol/L [facility] L ab (Internal) : [address] t ? ? S ? Cl 102 mmol/L 98-107 Final [place] mmol/L [facility] L ab (Internal) : [address] t ? ? S Low Tco2 19.0 mmol/L 22.0-30.0 Final No rth mmol/L [facility] L ab (Internal) : [address] t ? ? S ? Tp 8.0 g/dL 6.3-8.2 Final [place] g/dL [facility] L ab (Internal) : [address] t ? ? S ? Alb 4.5 g/dL 3.5-5.0 [facility] [place] g/dL [facility] L ab (Internal) : [address] t ? ? S ? Tbil 0.6 mg/dL 0.2-1.3 Final [place] mg/dL [facility] L ab (Internal) : [address] ? ? S ? Alp 57 U/L 38-126 Final [place] U/L [facility] L ab (Internal) : [address] t ? ? S ? Alt 26 U/L 9-52 U/L Final [place] (Sgpt) [facility] L ab (Internal) : [address] t ? ? S ? Ast 17 U/L 14-36 U/L Final [place] (Sgot) [facility] L ab (Internal) : [address] t 08/26/2017 CBC W/ Auto BLD ? Wbc 6.1 10*3/uL 5.0-10.0 F inal [place] Diff 10*3/uL [facility] L ab (Internal) : [address] t ? ? BLD ? Rbc 4.42 4.10-5.30 Final [place] 10*6/uL 10*6/uL [facility] L ab (Internal) : [address] t ? ? BLD ? Hgb 14.1 g/dL 12.0-16.0 Final Nort h g/dL [facility] L ab (Internal) : [address] t ? ? BLD ? Hct 44.2 % 37.0-47.0 Final [place] % [facility] L ab (Internal) : [address] t ? ? BLD High Mcv 100.0 fL 80.0-96.0 Final [facility] Hospital L ab (Internal) : [address] t ? ? BLD ? Mch 31.9 pg 26.0-32.[address] [place] [address] [facility] L ab (Internal) : [address] t ? ? BLD ? Mchc 31.9 g/dL 31.0-35.0 Final [place] g/dL [facility] L ab (Internal) : [address] ? ? BLD ? Rdw 14.2 % 11.5-14.5 Final North % [facility] L ab (Internal) : [address] ? ? BLD ? Plt 289 10*3/uL 130-450 Final Nort h 10*3/uL [facility] L ab (Internal) : [address] 08/26/2017 Enteric STL ? [place] see ? Final No rth Bacteria, la PCR comments Count Organism Hospital Lab Specific (Interna l): Culture, [address] ? ? STL ? Shigella see ? Final North PCR comments [facility] L ab (Internal) : [address] t ? ? STL Unknown Campylob see ? Final [place] acter PCR comments Count [facility] L ab (Internal) : [address] ? ? STL ? Shiga see ? Final [place] Toxin PCR comments Count [facility] L ab (Internal) : [address] 01/04/2017 Venipuncture BLD ? Venpn* ? ? Final [facility] L ab (Internal) : [address] 01/04/2017 BMP, Serum PLASMA High g/r 110 mg/dL 74-106 Final [place] or Plasma mg/dL [facility] L ab (Internal) : [address] ? ? PLASMA High Bun 28 mg/dL 7-17 Final [place] mg/dL [facility] L ab (Internal) : [address] ? ? PLASMA High Crea 1.20 mg/dL 0.52-1.04 Final [facility] th mg/dL [facility] L ab (Internal) : [address] t ? ? PLASMA ? Ca 9.0 mg/dL 8.4-10.2 Final [place] mg/dL [facility] L ab (Internal) : [address] ? ? PLASMA Low Na 134 mmol/L 137-145 Final [place] mmol/L [facility] L ab (Internal) : [address] ? ? PLASMA ? K 4.3 mmol/L 3.5-5.1 Final [place] mmol/L [facility] L ab (Internal) : [address] t ? ? PLASMA Low Cl 97 mmol/L 98-107 Final [place] mmol/L [facility] L ab (Internal) : [address] ? ? PLASMA ? Tco2 27.0 mmol/L 22.0-30.0 Final No rth mmol/L [facility] L ab (Internal) : [address] 01/04/2017 Neutrophil BLD ? Anc-manu 1.73 ? Final [place] Count, al 10*3/uL [facility] Absolute Hospital Lab (Anc), Blood (Int ernal): [address] 01/04/2017 Differential BLD ? Polys 52 % 40-75 % Final [place] , [facility], [facility] Blood Hospital L ab (Internal) : [address] ? ? BLD ? Bands 0 % 0-5 % Final [facility] L ab (Internal) : [address] ? ? BLD ? Lymphs 23 % 20-50 % Final [facility] L ab (Internal) : [address] ? ? BLD High [place] 24 % 2-10 % Final [facility] L ab (Internal) : [address] ? ? BLD ? Eos 0 % 0-6 % Final [facility] Hospital L ab (Internal) : [address] ? ? BLD ? Baso 1 % 0-1 % Final [facility] L ab (Internal) : [address] ? ? BLD ? Atyp 0 % ? Final [facility] Hospital L ab (Internal) : [address] ? ? BLD ? Plts, adequate adequate Final [facility] Hospital L ab (Internal) : [address] ? ? BLD ? RBC normal normal Final [place] Morpholog [facility] L ab (Internal) : [address] 01/04/2017 CBC W/ Auto BLD Low Wbc 3.3 10*3/uL 5.0-10.0 F inal [place] Diff 10*3/uL [facility] L ab (Internal) : [address] ? ? BLD Low Rbc 3.95 4.10-5.30 Final [place] 10*6/uL 10*6/uL [facility] L ab (Internal) : [address] ? ? BLD ? Hgb 12.5 g/dL 12.0-16.0 Final Nort h g/dL [facility] L ab (Internal) : [address] ? ? BLD ? Hct 37.8 % 37.0-47.[address] [facility] L ab (Internal) : [address] ? ? BLD ? Mcv 95.7 fL 80.0-96.0 Final [facility] L ab (Internal) : [address] ? ? BLD ? Mch 31.6 pg 26.0-32.0 Final [facility] L ab (Internal) : [address] ? ? BLD ? Mchc 33.1 g/dL 31.0-35.0 Final Nort h g/dL [facility] L ab (Internal) : [address] ? ? BLD High Rdw 14.6 % 11.5-14.[address] [facility] L ab (Internal) : [address] ? ? BLD ? Plt 150 10*3/uL 130-450 Final Nort h 10*3/uL [facility] L ab (Internal) : [address] 01/03/2017 Lactic Acid, S ? La 1.2 mmol/L 0.7-2.1 Fi [facility] Blood mmol/L [facility] L ab (Internal) : [address] 01/03/2017 Neutrophil BLD ? Anc-manu 2.20 ? Final [place] Count, al 10*3/uL [facility] Hospital Lab (Anc), Blood (Int ernal): [address] 01/03/2017 Differential BLD ? Polys 60 % 40-75 % Final [facility] Hospital L ab (Internal) : [address] ? ? BLD ? Bands 0 % 0-5 % Final [facility] L ab (Internal) : [address] ? ? BLD ? Lymphs 21 % 20-50 % Final [facility] L ab (Internal) : [address] ? ? BLD High [place] 18 % 2-10 % Final [facility] Hospital L ab (Internal) : [address] ? ? BLD ? Eos 0 % 0-6 % Final [facility] Hospital L ab (Internal) : [address] ? ? BLD ? Baso 0 % 0-1 % Final [facility] Hospital L ab (Internal) : [address] ? ? BLD ? Atyp 0 % ? Final [facility] Hospital L ab (Internal) : [address] ? ? BLD High [place] 1 % 0-0 % Final [facility] Hospital L ab (Internal) : [address] ? ? BLD ? Plts, adequate adequate Final [place] Est. [facility] L ab (Internal) : [address] ? ? BLD ? RBC normal normal Final [place] [facility] : [address] 01/03/2017 BNP (B-type S High Nt-probn 1340 pg/mL 0-450 F inal [place] Natriuretic p pg/mL Count ry Peptide), Hospita l Lab Prohormone (Inter nal): N-terminal, [address], [place] Immunoassay, Blood 01/03/2017 Troponin I, S ? Trop <0.06 NG/mL 0.00-0.06 Final [place] Serum or NG/mL [facility] L [facility] (Internal) : [address] 01/03/2017 CMP, Serum S High g/r 133 mg/dL 74-106 Final [place] or Plasma mg/dL [facility] L [facility] (Internal) : [address] ? ? S High Bun 30 mg/dL 7-17 Final [place] mg/dL [facility] L [facility] (Internal) : [address] ? ? S High Crea 1.20 mg/dL 0.52-1.04 Final [facility] mg/dL [facility] : [address] ? ? S ? Ca 9.5 mg/dL 8.4-10.2 Final [place] mg/dL [facility] L [facility] (Internal) : [address], [place] ? ? S Low Na 133 mmol/L 137-145 Final [facility] mmol/L [facility] : [address] t ? ? S ? K 4.5 mmol/L 3.5-5.1 [facility] mmol/L [facility] ([facility] : [address] t ? ? S Low Cl 97 mmol/L 98-107 Final [place] mmol/L [facility] ([facility] : [address] t ? ? S ? Tco2 23.0 mmol/L 22.0-30.0 Final No rth mmol/L [facility] ([facility] : [address] t ? ? S ? Tp 7.0 g/dL 6.3-8.2 Final [facility] g/dL [facility] : [address] t ? ? S ? Alb 3.9 g/dL 3.5-5.0 Final [facility] g/dL [facility] : [address] t ? ? S ? Tbil 0.5 mg/dL 0.2-1.3 Final [place] mg/dL [facility] ([facility] : [address] t ? ? S ? Alp 56 U/L 38-126 Final [facility] U/L [facility] : [address] t ? ? S ? Alt 36 U/L 9-52 U/L Final [place] (Sgpt) [facility] (Internal) : [address] t ? ? S ? Ast 32 U/L 14-36 U/L Final [place] (Sgot) [facility] : [address] t 01/03/2017 CBC W/ Auto BLD Low Wbc 3.7 10*3/uL 5.0-10.0 F inal [facility] Diff 10*3/uL [facility] ([facility] : [address] t ? ? BLD Low Rbc 4.08 4.10-5.30 Final [place] 10*6/uL 10*6/uL [facility] ([facility] : [address] t ? ? BLD ? Hgb 13.2 g/dL 12.0-16.0 Final Nort h g/dL [facility] L ab (Internal) : [address] t ? ? BLD ? Hct 38.6 % 37.0-47.0 Final [facility] L ab (Internal) : [address] t ? ? BLD ? Mcv 94.6 fL 80.0-96.0 Final [facility] L ab (Internal) : [address] t ? ? BLD High Mch 32.4 pg 26.0-32.0 Final [facility] Hospital L ab (Internal) : [address] t ? ? BLD ? Mchc 34.2 g/dL 31.0-35.0 Final Nort h g/dL [facility] L ab (Internal) : [address] ? ? BLD High Rdw 14.6 % 11.5-14.[address] [facility] L ab (Internal) : [address] ? ? BLD ? Plt 173 10*3/uL 130-450 Final Nort h 10*3/uL [facility] L [facility] (Internal) : [address] t 01/02/2017 Venipuncture BLD ? Venpn* ? ? Final [facility] L ab (Internal) : [address] t 01/02/2017 Culture, BLD ? Final microbiolog ? Final [place] Blood y results [facility] L ab (Internal) : [address] t 01/02/2017 Lactic Acid, S ? La 1.2 mmol/L 0.7-2.1 Fi nal [place] Blood mmol/L [facility] L ab (Internal) : [address] t 01/02/2017 Neutrophil BLD ? Anc-manu 2.63 ? Final [place] Count, al 10*3/uL [facility] Lab (Anc), Blood (Int ernal): [address] t 01/02/2017 Differential BLD ? Polys 58 % 40-75 % Final [facility] Hospital L ab (Internal) : [address] ? ? BLD ? Bands 0 % 0-5 % Final [facility] L ab (Internal) : [address] t ? ? BLD Low Lymphs 18 % 20-50 % Final [facility] L ab (Internal) : [address] ? ? BLD High Shoshone 23 % 2-10 % Final [facility] L ab (Internal) : [address] ? ? BLD ? Eos 0 % 0-6 % Final [facility] L ab (Internal) : [address] ? ? BLD ? Baso 1 % 0-1 % Final [facility] L ab (Internal) : [address] t ? ? BLD ? Atyp 0 % ? Final [facility] Hospital L ab (Internal) : [address] ? ? BLD ? Plts, adequate adequate Final [facility] Hospital L ab (Internal) : [address] t ? ? BLD ABNORMA RBC abnormal normal Final [facility] L ab (Internal) : [address] ? ? BLD ? Aniso small ? Final [facility] L ab (Internal) : [address] 01/02/2017 CMP, Serum S High g/r 131 mg/dL 74-106 Final [facility] or Plasma mg/dL [facility] : [address] ? ? S High Bun 30 mg/dL 7-17 Final [facility] mg/dL [facility] L ab (Internal) : [address] ? ? S High Crea 1.30 mg/dL 0.52-1.04 Final Nor th mg/dL [facility] L ab (Internal) : [address] t ? ? S ? Ca 9.3 mg/dL 8.4-10.2 Final [facility] mg/dL [facility] L ab (Internal) : [address] t ? ? S Low Na 133 mmol/L 137-145 Final [facility] mmol/L [facility] L ab (Internal) : [address] t ? ? S ? K 4.1 mmol/L 3.5-5.1 Final [place] mmol/L [facility] L [facility] (Internal) : [address] t ? ? S Low Cl 97 mmol/L 98-107 Final [facility] mmol/L [facility] : [address] t ? ? S ? Tco2 25.0 mmol/L 22.0-30.0 Final No rth mmol/L [facility] ([facility] : [address] t ? ? S ? Tp 6.5 g/dL 6.3-8.2 Final [facility] g/dL [facility] : [address] t ? ? S ? Alb 3.7 g/dL 3.5-5.0 Final [facility] g/dL [facility] : [address] t ? ? S ? Tbil 0.4 mg/dL 0.2-1.3 Final [place] mg/dL [facility] ([facility] : [address] t ? ? S ? Alp 50 U/L 38-126 Final [place] U/L [facility] L ab (Internal) : [address] t ? ? S ? Alt 33 U/L 9-52 U/L Final [place] (Sgpt) [facility] L ab (Internal) : [address] t ? ? S ? Ast 26 U/L 14-36 U/L Final [place] (Sgot) [facility] L [facility] (Internal) : [address] t 01/02/2017 CBC W/ Auto BLD Low Wbc 4.5 10*3/uL 5.0-10.0 F inal [place] Diff 10*3/uL [facility] ([facility] : [address] t ? ? BLD Low Rbc 3.70 4.10-5.30 Final [place] 10*6/uL 10*6/uL [facility] (Internal) : [address] t ? ? BLD Low Hgb 11.9 g/dL 12.0-16.0 Final Nort [facility] g/dL [facility] ([facility]) : [address] t ? ? BLD Low Hct 35.8 % 37.0-47.0 Final [place] % [facility] L [facility] (Internal) : [address] t ? ? BLD High Mcv 96.8 fL 80.0-96.0 Final [facility] L ab (Internal) : [address] t ? ? BLD High Mch 32.2 pg 26.0-32.0 Final [facility] Hospital L ab (Internal) : [address] t ? ? BLD ? Mchc 33.2 g/dL 31.0-35.0 Final Nort h g/dL [facility] L ab (Internal) : [address] t ? ? BLD High Rdw 15.1 % 11.5-14.5 Final [facility] Hospital L ab (Internal) : [address] t ? ? BLD ? Plt 170 10*3/uL 130-450 Final Nort h 10*3/uL [facility] L [facility] (Internal) : [address] 01/02/2017 Culture, BLD ? Final microbiolog ? Final [place] Blood y results [facility] L ab (Internal) : [address] 01/01/2017 Venipuncture BLD ? Venpn* ? ? Final [facility] L ab (Internal) : [address] t 01/01/2017 Neutrophil BLD ? Anc-manu 5.90 ? Final [place] Count, al 10*3/uL [facility] Hospital Lab (Anc), Blood (Int ernal): [address] 01/01/2017 Differential BLD High Polys 81 % 40-75 % Final [facility] Blood Hospital L ab (Internal) : [address] ? ? BLD ? Bands 0 % 0-5 % Final [facility] L ab (Internal) : [address] t ? ? BLD Low Lymphs 8 % 20-50 % Final [facility] L ab (Internal) : [address] ? ? BLD ? Shoshone 10 % 2-10 % Final [facility] L ab (Internal) : [address] ? ? BLD ? Eos 1 % 0-6 % Final [facility] L [facility] (Internal) : [address] t ? ? BLD ? Baso 0 % 0-1 % Final [facility] L ab (Internal) : [address] ? ? BLD ? Atyp 0 % ? Final [facility] : [address] t ? ? BLD ? Plts, adequate adequate [facility] : [address] t ? ? BLD ? RBC normal normal Final [facility] : [address] 01/01/2017 CMP, Serum S High g/r 142 mg/dL 74-106 Final [facility] or Plasma mg/dL [facility] ([facility] : [address] t ? ? S High Bun 27 mg/dL 7-17 Final [facility] mg/dL [facility] : [address] t ? ? S ? Crea 1.00 mg/dL 0.52-1.04 Final [facility] mg/dL [facility] ([facility] : [address] t ? ? S ? Ca 9.7 mg/dL 8.4-10.2 Final [facility] mg/dL [facility] ([facility] : [address] t ? ? S Low Na 136 mmol/L 137-145 Final [facility] mmol/L [facility] ([facility] : [address] t ? ? S ? K 4.1 mmol/L 3.5-5.1 Final [facility] mmol/L [facility] (Internal) : [address] t ? ? S ? Cl 98 mmol/L 98-107 Final [facility] mmol/L [facility] ([facility]) : [address] t ? ? S ? Tco2 26.0 mmol/L 22.0-30.0 Final No rth mmol/L [facility] (Internal) : [address] t ? ? S ? Tp 7.2 g/dL 6.3-8.2 Final [facility] g/dL [facility] (Internal) : [address] t ? ? S ? Alb 4.1 g/dL 3.5-5.0 Final [facility] g/dL [facility] (Internal) : [address] t ? ? S ? Tbil 0.5 mg/dL 0.2-1.3 Final [facility] mg/dL [facility] ([facility] : [address] t ? ? S ? Alp 60 U/L 38-126 Final [place] U/L [facility] L ab (Internal) : [address] t ? ? S ? Alt 35 U/L 9-52 U/L Final [place] (Sgpt) [facility] L [facility] (Internal) : [address] t ? ? S ? Ast 24 U/L 14-36 U/L Final [place] (Sgot) [facility] L [facility] (Internal) : [address] t 01/01/2017 CBC W/ Auto BLD ? Wbc 7.3 10*3/uL 5.0-10.0 F inal [place] Diff 10*3/uL [facility] ([facility]) : [address] ? ? BLD Low Rbc 3.86 4.10-5.30 Final [place] 10*6/uL 10*6/uL [facility] (Internal) : [address] t ? ? BLD ? Hgb 12.6 g/dL 12.0-16.0 Final Nort h g/dL [facility] L ab (Internal) : [address] t ? ? BLD ? Hct 37.4 % 37.0-47.0 Final [facility] Hospital L ab (Internal) : [address] ? ? BLD High Mcv 96.9 fL 80.0-96.0 Final [facility] Hospital L ab (Internal) : [address] ? ? BLD High Mch 32.6 pg 26.0-32.0 Final [facility] Hospital L ab (Internal) : [address] t ? ? BLD ? Mchc 33.7 g/dL 31.0-35.0 Final Nort h g/dL [facility] L [facility] (Internal) : [address] ? ? BLD High Rdw 15.0 % 11.5-14.5 Final [facility] Hospital L ab (Internal) : [address] ? ? BLD ? Plt 188 10*3/uL 130-450 Final Nort h 10*3/uL [facility] L ab (Internal) : [address] t Past Encounters 12/09/2021 Vertigo; Benign Paroxysmal Positional Ve rtigo Nystagmus Paula Son, PT: [address] [facility] [address], [place] [address], Ph. 11/11/2021 Vertigo; Benign Paroxysmal Positional Ve rtigo Nystagmus Paula Son, PT: [address] [facility], [address] [address], [place] [address], Ph. 11/04/2021 Vertigo; Benign Paroxysmal Positional Ve rtigo Nystagmus Paula Son, PT: [address] [facility], [facility] [address], [place] [address], Ph. 10/21/2021 Vertigo; Benign Paroxysmal Positional Ve rtigo Nystagmus Paula Son, PT: [address] [facility], [facility] [address], [place] [address], Ph. 10/12/2021 Vertigo; Benign Paroxysmal Positional Ve rtigo Nystagmus Paula Son, PT: [address] [facility], [facility], [place] [address], Ph. Social History Tobacco Smoking Status Former Smoker Notes: 23, 2 p pd quit 1990 Vaccine List None recorded. Plan of Care Reminders Provider Appointments None ? ? recorded. Lab None ? ? recorded. Referral None ? ? recorded. Procedures None ? ? recorded. Surgeries None ? ? recorded. Imaging None ? ? recorded. Vitals 06/10/2018 10:15AM Office 30 Height Weight BMI Blood Pressure 160.02 cm 70.22 kg 27.4 kg/m2 118/70 mm[Hg] 04/10/2018 09:00AM Office 30 Height Blood Pressure 160.02 cm 149/83 mm[Hg] 12/19/2017 Height Weight Blood Pressure 160.02 cm 68.66 kg 115/77 mm[Hg] 07/25/2017 Height Weight Blood Pressure 160.02 cm 67.59 kg 133/84 mm[Hg] 04/25/2017 Height Weight Blood Pressure 160.02 cm 66.22 kg 130/91 mm[Hg] 03/28/2017 Height Weight Blood Pressure 160.02 cm 65.38 kg 136/84 mm[Hg] 12/26/2016 Height Weight Blood Pressure 160.02 cm 71.01 kg 120/62 mm[Hg] 06/27/2016 Height Weight Blood Pressure 160.02 cm 76.77 kg 156/70 mm[Hg] 11/23/2014 Height Weight Blood Pressure 160.02 cm 69.4 kg 140/70 mm[Hg] 09/08/2014 Height 160.02 cm
--- OUTSIDE RECORDS SUMMARY | 2021-12-29 19:11 | XMS_ITS | Encounter Summary ---
:1935 Author Care Team Providers Name Role Phone Traci Etta JON Primary Care Provider [phone] Omari Powell MD [employer] Supervisor [phone] [employer] [facility] OTHER [phone] Reason for Visit vertigo Assessment and Plan [...] Code Code System Name Reaction Severity Onset 479778 RxNorm Bactrim ? ? ? 4053 RxNorm Erythromycin Base ? ? ? 469629 RxNorm Levaquin ? ? ? Penicillins ? [...] N Functional Status No Impairment. Past Encounters 10/21/2021 Vertigo; Benign Paroxysmal Positional Ve rtigo Nystagmus Paula Son, PT: [address] [facility] [address], [place] [address], Ph. 10/12/2021 Vertigo; Benign Paroxysmal Positional Ve rtigo Nystagmus Paula Son, PT: [address] [facility] [address], [place] [address], Ph. History of Present Illness ? [facility] PT Daily Reported By: Patient Subjective:: Subjective ; States she had a little dizziness the day after last session. Has not had any spi nning, however. States some woosieness at times; that comes and goes. States her (L) eye flickered a couple times and was worried it could be the vertigo, even though she wasn't dizzy , so one day she did take a meclizine. Patient reports that she fe els overall the dizziness is significantly improved and i s ready to tackle balance work Case History: Case History Narrative ; Davida [...] disease stage 4, atyp ical chest pain, [place], HTN, HLP, BPPV, and hypothyroidism.Today ariana moctezuma presents with some limitations of her cervical spine active ra nge of motion, which is to be expected to some degree as she has be en holding her head still to avoid triggering vertigo. Patient has decreased dynamic balance activities, however she is 8 4 and has bilateral foot neuropathy.She had positive right [place]-Hallpike testing today, indicating right posterior c anal BPPV. PT was able to perform the Mary maneuver to address th is, with good results.PT is hopeful that with short-term interve ntion, the patient will have resolution of BPPV and impro vements in cervical spine range of motion/use, as well as some improvement in dynamic balance Pain Description:: Pain (location, nature, beha vior severity) ; N/A Review of Systems None recorded. Physical Exam ? [facility] PT Vestibular, [facility] PT As sessment and Plan Reported By: Patient Rhomberg Test: Romberg Balance Test Tandem ; Eyes open: with 2 fingers for support: 3 trial s each: (R) leg in front: 1st: 6 sec, 2nd: 8 se c, 3rd: 30 sec(L) leg in front: 1s: 9 sec, 2nd : 30 sec Single Limb Stance: Single Leg Balance Right ; 1 st trial: (B) UE support: 30 sec2nd trial: 1 UE support: 30 sec. Single Leg Balance Left ; (B ) UE, 30 sec x 2 trials *Patient Education: Patient Education Provided T sae ; Patient was educated to add in today's e xercises to HEP and handout was issued. Patient was encouraged to do the balance exercises in a corner with a chair in front of her for sa wall. Patient was educated on advancements of balance work, by decreasing upper extremity s upport *Physical Therapy Assessment: Physical Therapy Assessm ent ; Patient reports resolution of BPPV symptoms. Patient was able to perform balance activitie s today with noted challenges of higher level s tatic exercises, particularly seemed more sami llenged with the left lower extremity, than t he right Certification Dates (MEDICARE ONLY): Certification Fro m ; 10/12/2021. Certification To ; 11/11/2021 *Plan: Therapy Plan Continue as per plan of care *Time: Time In: ; 230 PM. Time Out: ; 3:03 PM. Total Time: ; 33 min. Dictation: T his document was dictated utilizing voice rec ognition software and may contain inadvertent errors
[2021-12-29 19:33] LABS: Hemoglobin A1C 9.2 % (<5.7)
[2021-12-29 19:41] LABS: Anion Gap 9.5 mmol/L (3-11); BUN 41 mg/dL (7-18); CO2 26.5 mmol/L (21.0-32.0); CREATININE 2.1 mg/dL (0.55-1.02); Calcium 9.6 mg/dL (8.5-10.1); Chloride 104 mmol/L (98-107); Estimated GFR 22.44 (mL/min/1.73m2); Glucose 228 mg/dL (74-106); Potassium 4.3 mmol/L (3.5-5.1); Sodium 140 mmol/L (136-145)
[2021-12-29 19:46] LABS: HCT 35.8 % (36.0-46.0); HGB 11.4 g/dL (11.2-15.7); MCH 34.3 pg (27.0-33.0); MCHC 31.8 % (32.0-36.0); MCV 107.8 fL (80-95); MPV 11.8 fL (8.0-11.0); Platelet Count 228 10^3/uL (130-400); RBC 3.32 10^6/uL (3.93-5.22); RDW 14.7 % (11.7-14.6); RDW-SD 58.9 fL; WBC 7.04 10^3/uL (4.4-10.8)
== END 2021-12-29 19:08 | disposition home or self-care (01) ==
LOC: NCHCN 19:07
PROVIDERS: PCP Internal Medicine; Visit Provider Nurse Practitioner Family
DX: E11.9 Type 2 diabetes mellitus without complications (principal); D63.1 Anemia in chronic kidney disease; N18.4 Chronic kidney disease, stage 4 (severe)
CPT/HCPCS: 80048; 85027; 83036

== ENCOUNTER → 2022-08-22 12:50 | Outpatient (BNVA) | payer MEDICARE, SELFPAY | PROVIDERS: PCP Internal Medicine; Referring Provider Internal Medicine; Visit Provider Nurse Practitioner Gerontology | DX: Z09 Encounter for follow-up examination after completed treatment for conditions other than malignant neoplasm (principal); Z87.440 Personal history of urinary (tract) infections | CPT/HCPCS: 99213 ==

== ENCOUNTER 2022-10-03 13:20 | Outpatient (REF) | payer MEDICARE, SELFPAY ==
[2022-10-03 15:48] LABS: HCT 36.8 % (36.0-46.0); HGB 11.8 g/dL (11.2-15.7); MCH 33.5 pg (27.0-33.0); MCHC 32.1 % (32.0-36.0); MCV 105 fL (80-95); MPV 11.1 fL (8.0-11.0); Platelet Count 254 10^3/uL (130-400); RBC 3.52 10^6/uL (3.93-5.22); RDW 15.1 % (11.7-14.6); RDW-SD 58.4 fL; WBC 8.16 10^3/uL (4.4-10.8)
[2022-10-03 16:19] LABS: TSH (W/Ref FT4) 0.15 uIU/mL (0.36-3.74)
== END 2022-10-03 13:21 | disposition home or self-care (01) ==
LOC: NCHCN 13:20
PROVIDERS: PCP Internal Medicine; Visit Provider Nurse Practitioner Family
DX: E03.9 Hypothyroidism, unspecified (principal); D63.1 Anemia in chronic kidney disease
CPT/HCPCS: 85027; 84439; 84443

== ENCOUNTER → 2022-12-18 13:34 | Outpatient (BNVA) | payer MEDICARE, SELFPAY | PROVIDERS: PCP Nurse Practitioner Family; Referring Provider Nurse Practitioner Family; Visit Provider Nurse Practitioner Gerontology | DX: Z09 Encounter for follow-up examination after completed treatment for conditions other than malignant neoplasm (principal); Z87.440 Personal history of urinary (tract) infections; Z79.890 Hormone replacement therapy | CPT/HCPCS: 81003; 99213 ==

== ENCOUNTER 2023-04-11 16:37 | Outpatient (REF) | payer MEDICARE, SELFPAY ==
[2023-04-11 17:58] LABS: TSH (W/Ref FT4) 5.72 uIU/mL (0.36-3.74)
[2023-04-11 18:17] LABS: FREE T4 0.74 ng/dL (0.76-1.46)
== END 2023-04-11 16:38 | disposition home or self-care (01) ==
LOC: NCHCN 16:37
PROVIDERS: PCP Nurse Practitioner Family; Visit Provider Nurse Practitioner Family
DX: E03.9 Hypothyroidism, unspecified (principal)
CPT/HCPCS: 84439; 84443

== ENCOUNTER → 2023-06-18 14:21 | Outpatient (BNVA) | payer MEDICARE, SELFPAY | PROVIDERS: PCP Nurse Practitioner Family; Visit Provider Nurse Practitioner Gerontology | DX: Z29.8 Encounter for other specified prophylactic measures (principal); Z79.890 Hormone replacement therapy; Z87.440 Personal history of urinary (tract) infections; E11.9 Type 2 diabetes mellitus without complications | CPT/HCPCS: 99213 ==

== ENCOUNTER 2023-08-10 10:01 | Emergency (ER) | payer MEDICARE, SELFPAY ==
[2023-08-10] VITALS (44 sets, daily range): BP systolic 81–215; BP diastolic 59–198; PULSE 60–84; RESP 11–33; TEMP 36.3; O2SAT 93–99
--- NOTE | 2023-08-10 10:00 | RT.EKG_ITS ---
APPROVED REPORT Exam: Resting ECG Reason for Exam: dizziness Patient Location: E HR:76 bpm ECG Measurements Heart Rate 76 AXIS MS [id number] P [id number] QRSd 123 QRS 124 QT 415 T 1 QTc 467 Conclusion Atrial fibrillation...V-rate 61- 92, irreg A-activity RBBB and LPFB...QRSd >120mS, axis(90,210) irregular wide complex rhythm, consider afib with RBBB v frequent PACs
--- NOTE | 2023-08-10 10:23 | W.ED.GENAD ---
Discharge Plan Disposition Patient Disposition: Home Discharge Details Clinical Impression: Cerebrovascular ischemia, transient, Urinary tract infection Primary Care Provider: GISELL JEREZ ED Provider: Dane Maddox Home Meds and New Rx's Prescriptions: New atorvastatin 80 mg tablet 80 mg PO DAILY Qty: 30 0RF cephalexin 500 mg capsule 500 mg PO BID 10 Days Qty: 20 0RF Continued glipizide 2.5 mg tablet extended release 24hr 2.5 mg PO DAILY torsemide 10 mg tablet 10 mg PO DAILY aspirin [Adult Aspirin Regimen] 81 mg tablet,delayed release (DR/EC) 81 mg PO DAILY magnesium gluconate [Mag-G] 27 mg magnesium (500 mg) tablet 27 mg PO DAILY B-100 Complex 100 mg tablet extended release PO mecobalamin (vitamin B12) 5,000 mcg tablet,disintegrating PO cholecalciferol (vitamin D3) 2,000 unit capsule 2,000 unit PO DAILY levothyroxine [Synthroid] 50 mcg tablet 75 mcg PO DAILY nitroglycerin 0.4 mg tablet, sublingual 0.4 mg SL Q5M PRN Premarin 0.625 mg/gram cream 0.625 mg VG DIRECTED Qty: 90 4RF Rx Instructions: apply a pea sized amount to the vaginal opening 2 times a week fluticasone propionate [Flonase Allergy Relief] 50 mcg/actuation spray,suspension 2 spray intranasal DAILY 30 Days Qty: 16 6RF Rx Instructions: administer into each nostril ropinirole 0.25 mg tablet 0.25 mg PO QHS Rx Instructions: administer 1-3 hours before bedtime famotidine 10 mg tablet 10 mg PO DAILY loratadine 10 mg tablet 10 mg PO DAILY coenzyme Q10 100 mg capsule 100 mg PO DAILY carvedilol 12.5 mg tablet 12.5 mg PO BID ascorbic acid (vitamin C) [Vitamin C] 500 mg Tablet 500 mg PO DAILY lisinopril 40 mg tablet 20 mg PO DAILY Eliquis 2.5 mg tablet 2.5 mg PO BID Discontinued atorvastatin 20 mg tablet 10 mg PO DAILY Discharge Instructions Instructions: Cephalexin (By mouth), Atorvastatin (By mouth), Urinary Tract Infection in Women (ED), Self Care Measures After a Stroke (ED) Additional Instructions: You were seen in the emergency department today after your sudden onset of confusion and right visual defects yesterday. We repeated your head CT which shows a small area of likely infarction or a small stroke. Your carotid ultrasound shows bilateral 50 to 69% stenosis of your carotid arteries. We discussed at length the risk profile and my wishes. To pursue transfer to [facility] or [facility] for stroke admission. You chose not to do this. Despite risks of possible stroke at home including possible permanent deficits or . Please keep taking your Eliquis as this is protective of your brain from further ischemic strokes. Stop taking your 10 mg atorvastatin, I have sent a prescription for 80 mg daily of atorvastatin to [facility] in therapy, I have arranged for you to follow-up with our neurologist here at [facility] on Sunday or Sunday as well as receive an echocardiogram for definitive stroke work-up. Please return to the ER at once for any further status changes, you state that you have friends and neighbors that can stay with you which I think is reasonable. Again you have had a small stroke and need to be very careful of her reoccurrence of cerebral ischemia and mental status changes in the coming days. Referrals: [facility] [Provider Group] (for ECHO) [facility] [Provider Group] (For Stroke care) GISELL JEREZ, OCCASIONAL CAREGIVER [Primary Care Provider] - Medical Decision Making This dictation utilizes [id number] dictation software and may contain unedited grammatical errors. 88 y/o F presents to ED today with a chief complaint of dizziness, confusion, R eye visual changes. Onset and characteristics include onset yesterday morning- seen at [facility] diagnosed with cerebral artery stenosis or occlusion. Patient has relevant history of TIA, paced atrial fibrillation, CKD4, CAD, acute recurrent UTIs. Family and social history: noncontributory. Pertinent exam findings / vital signs include [ ]. Differential / pathologies of concern include [ ]. Diagnostic studies of: -CBC, CMP, Mg++, Lactate, BNP, UA, CTA Head & Neck w Contrast. -CBC benign -CMP shows SCr of 3.1 (chronic), GFR 14 -Lactate WNL -BNP 8900 - question renal source vs HF exacerbated by chronic atrial fibrillation -Mg++ 2.5, unremarkable Consulted with Neurology for patients' SCr and inability to receive MRI due to pacemaker, patients' status as a DNR vs loading with contrast in the setting of CKD stage 4, does make urine. Well outside window, CTA may not change treatment recommendations, past 24 hrs for any possible retrieval. Spoke with [facility] who recommend against CTA with renal risks with a non-focal exam. -Repeated CT Head wo Contrast, shows possible hypodensity of infarct in L occipital lobe -US carotids show 50-69% stenosis bilaterally. -EKG shows Rate controlled atrial fibrillation at 76 bpm with no overt ST changes, normal axis, good R wave progression, inverted T waves in V1 V2 V3- unknown chronicity, no priors in our system. -UA shows moderate leuk esterase, micro shows 20-50 WBCs. Potential as cause of confusion. Interventions of: -IV Ceftriaxone, PO cephalexin renal dosing by Rx for UTI. Rx of high dose atorvastatin for CVA precautions ED Course: 88-year-old female had sudden onset of right eye visual changes with unspecified nature starting yesterday morning greater than 24 hours ago. Had global confusion that seems to have improved. She has a nonfocal neurological exam with intact visual charlton and vision grossly intact without motor or sensory deficits. I repeated the patient's CT head without contrast as she cannot receive MRI due to her pacemaker she also has end-stage renal disease and had to cancel a surgery to have a dialysis port installed last month so I do not think she would benefit from contrast to the GFR 14 today as this may put her into acute renal failure to require inpatient dialysis on an urgent need. Patient's repeat head CT shows possible hypodensity in the left occipital lobe which is consistent with her possible onset yesterday. I spoke to the patient that she likely had a small stroke she wishes not to be transferred to a facility like [facility]- but they did not want to pursue this. I again focused on the risks involved in discharging the patient and that it was my advice to seek neuology consult. Due to the patients' wishes and capacity to make decisions I did not re-consult with Neurology at outside facilities. Patient wanted to follow-up with our Neurology early next week. I counseled her that she needs an ECHOcardiogram and that I would up her dose of atorvastatin, and she is on Eliquis. I counseled her on BP control concerns. Though I do not think this is the most prudent course of action I do respect the patient's shared decision-making and it is not entirely AGAINST MEDICAL ADVICE as she can be optimized at home. Plan to treat Findings not consistent with worsening deficits, the patient likely did have some sort of small stroke or transient ischemic attack, the read is not definitive on her CT head I discussed with her at length her need to watch for recurrence of altered mental status and immediate return to emergency department. She does have a UTI which is possibly chronic but we will treat with renal dosing of antibiotics, there is no signs of sepsis at this time and she ambulated out of the department under her own power without ataxia. Disposition of Cerebrovascular Ischemia, Transient & Urinary Tract Infection. Patient verbalized understanding of the plan and return to ED criteria and engaged in shared decision making. Medical Records Medical records reviewed: Yes I reviewed the patient's medical records. Medical records narrative: Reviewed patient's CT brain without contrast yesterday from [facility] in [place]- shows small vessel ischemia, punctate calcification adjacent to the right optic sheath stable compared to a prior exam in 2020- they diagnosed unspecified cerebral artery occlusion or stenosis as disposition. Imaging Data Radiologic Study: Imaging: CT Scan Radiologist's impression: Exam(s) CT HEAD WO EXAM: CT HEAD WO CLINICAL HISTORY: dizziness, confusion yesterday. TECHNIQUE: Imaging Protocol: Axial computed tomography images with coronal and sagittal reformatted images were created and reviewed COMPARISON: CT CT HEAD CERV SPINE FACIAL WO from 08/10/2021 FINDINGS: There are no skull fractures. There is no fluid in the visualized paranasal sinuses. There is no evidence of intracranial hemorrhage, mass effect, or shift of midline structures. There are no extra-axial fluid collections. The ventricles are not enlarged or shifted and there is no blood within the ventricular system nor within the basal cisterns. There is subtle hypodensity evident in the left occipital lobe, more so than previous. Possibly interval nonhemorrhagic infarct. IMPRESSION: Subtle asymmetric hypodensity in the left occipital lobe. If clinically indicated follow-up MRI with diffusion imaging can be performed to determine if there has been ischemic infarct at this location Radiologic Study #2: Imaging: Ultrasound Radiologist's impression: Exam(s) US CAROTID EXAM: US CAROTID CLINICAL HISTORY: dizziness, visual changes, unable to MRI/CTA. TECHNIQUE: Ultrasound carotids performed using grayscale, color-flow, and spectral Doppler imaging. COMPARISON: No exams were available for comparison FINDINGS: CAROTID ARTERIES: There is plaque evident at the carotid bulbs and proximal ICAs bilaterally, slightly more so on the right side. Peak systolic as well as end-diastolic velocities are not elevated. For, minimally elevated ratios on the right side evident. VERTEBRAL ARTERIES: Antegrade flow demonstrated in both vertebral arteries. Measurements: R Bulb: 47.5cm/s PS / 12cm/s ED R CCA: 35.7cm/s PS / 8.5cm/s ED R ECA: 61.5cm/s PS / 8.4cm/s ED R ICA Prox: 44.4cm/s PS / 10.4cm/s ED R ICA Mid: 61.4cm/s PS / 17.2cm/s ED R ICA Distal: 69.6cm/s PS /22.5cm/s ED R Vert: 39.4cm/s PS / 13.1cm/s ED R SVR: 2 R DVR: 2.6 L Bulb: 45.9cm/s PS / 10.2cm/s ED L CCA: PS / 14cm/s ED L ECA: 54.5cm/s PS / 8.6cm/s ED L ICA Prox: 76.7cm/s PS / 23.4cm/s ED L ICA Mid: 82.9cm/s PS / 25.9cm/s ED L ICA Distal: 79.5cm/s PS / 30.6cm/s ED L Vert: 26.9cm/s PS / 8.6cm/s ED L SVR: 1.8 L DVR: 1.8 IMPRESSION: There is calcified and noncalcified plaque in the distal common carotid arteries, carotid bulbs, and proximal internal carotid arteries bilaterally, more so on the right side. Amount of stenosis on the right side is estimated at 50-69 percent. Amount of stenosis on the left side estimated at slightly less than 50 percent. Antegrade flow is demonstrated in both vertebral arteries. Criteria for Carotid Stenosis: Normal: ICA PSV <125 cm/s no plaque or intimal thickening is visible. <50% stenosis: ICA PSV <125 cm/s and plaque or intimal thickening is visible. 50-69% stenosis: ICA PSV is 125-250 cm/s and plaque is visible. >70% stenosis to near occlusion: ICA PSV >250 cm/s with visible plaque and luminal narrowing. Lab Data Lab results reviewed: Yes I reviewed the patient's lab results. Labs: Laboratory Tests Range/Units 08/10/23 08/10/23 08/10/23 10:36 10:36 11:23 WBC (4.4-10.8) 10^3/uL 7.96 RBC (3.93-5.22) 10^6/uL 3.72 L Hgb (11.2-15.7) g/dL 12.4 Hct (36.0-46.0) % 38.3 MCV (80-95) fL 103 H MCH (27.0-33.0) pg 33.3 H MCHC (32.0-36.0) % 32.4 RDW (11.7-14.6) % 14.2 Plt Count (130-400) 10^3/uL 214 MPV (8.0-11.0) fL 9.6 Immature Gran % 0.4 Neutrophils % 62.3 Lymphocytes % 20.6 Monocytes % 14.3 Eosinophils % 1.8 Basophils % 0.6 Nucleated RBC % (0.0-0.3) % 0.0 Absolute Neutrophils (1.2-6.7) 10^3/uL 4.96 Absolute Lymphocytes (1.2-3.4) 10^3/uL 1.64 Absolute Monocytes (0.1-0.8) 10^3/uL 1.14 H Absolute Eosinophils (0.0-0.7) 10^3/uL 0.14 Absolute Basophils (0.0-0.2) 10^3/uL 0.05 VBG Lactate (0.6-1.4) mmol/L 1.5 H Sodium (136-145) mmol/L 140 Potassium (3.5-5.1) mmol/L 4.5 Chloride (98-107) mmol/L 104 Carbon Dioxide (21.0-32.0) mmol/L 25.2 Anion Gap (3-11) mmol/L 10.8 BUN (7-18) mg/dL 53 H Creatinine (0.55-1.02) mg/dL 3.1 H Est GFR (CKD-EPI 2020) (mL/min/1.73m2) 14.11 Glucose (74-106) mg/dL 130 H Calcium (8.5-10.1) mg/dL 9.9 Magnesium (1.8-2.4) mg/dL 2.5 H Total Bilirubin (0.2-1.0) mg/dL 0.6 AST (15-37) U/L 14 L ALT (14-59) U/L 17 Alkaline Phosphatase (46-116) U/L 47 Troponin I (<or=60) ng/L < 50 NT-Pro-B Natriuret Pep (<300) pg/mL 8910 H Cancelled Total Protein (6.4-8.2) g/dL 8.0 Albumin (3.4-5.0) g/dL 3.7 Urine Color (Yellow) Yellow Urine Clarity (Clear) Sl Cloudy Urine pH (5-8) 7.0 Ur Specific [place] (1.005-1.025) 1.020 Urine Protein (Negative) mg/dL 30 H Urine Ketones (Negative) mg/dL Negative Urine Blood (Negative) Negative Urine Nitrite (Negative) Negative Urine Bilirubin (Negative) Negative Urine Urobilinogen (Up to 0.2) mg/dL 0.2 Ur Leukocyte Esterase (Negative) Moderate H Urine RBC (0-2) HPF 0-2 Urine WBC (0-5) HPF 20-50 H Ur Epithelial Cells (Negative) HPF Many Urine Crystals (Negative) HPF Negative Urine Bacteria (Negative) HPF Many Urine Casts (Negative) LPF Negative Urine Mucus (Negative) Trace Ur Culture Indicated? No/Sq. Contamination Urine Glucose (Negative) mg/dL Negative HPI General Date/Time Provider Initiated Documentation: 08/10/23 10:07. HPI Narrative: 88 year-old female presents to ED today by POV/ambulating with her with a chief complaint of sudden onset of dizziness, confusion, R eye visual changes and diffuse weakness with onset yesterday morning- patient was seen at [facility] and diagnosed with stenosis or occlusion of cerebral artery- had CT Head wo Contrast performed which was negative for ICH. Quality described as generalized weakness, feeling of lightheadedness and dizziness, denies overt room spinning sensation, denies unilateral weakness or hemiparesis, denies blindness, poor historian in regards to quality of visual changes, denies sensory deficits, denies recent illness or fever, denies chest pain or shortness of breath. Severity is described as 8/10. Palliating factors include nothing specific attempted. Provoking factors include nothing specific. Events leading up to the incident/Associated Symptoms: Patient denies history of stroke despite history TIA in her records. Patient is anticoagulated on Eliquis, has pacemaker and persistent atrial fibrillation. Related Data Home Medications Medication Instructions Recorded Confirmed aspirin 81 mg tablet,delayed 81 mg PO DAILY 05/08/19 08/10/23 release (Adult Aspirin Regimen) cholecalciferol (vitamin D3) 50 2,000 unit PO DAILY 05/08/19 04/18/23 mcg (2,000 unit) capsule glipizide 2.5 mg tablet, extended 2.5 mg PO DAILY 05/08/19 08/10/23 release 24 hr magnesium gluconate 27 mg 27 mg PO DAILY 05/08/19 04/18/23 magnesium (500 mg) tablet (Mag-G) mecobalamin (vitamin B12) 5,000 mcg PO 05/08/19 04/18/23 mcg disintegrating tablet torsemide 10 mg tablet 10 mg PO DAILY 05/08/19 08/10/23 vit B complex 100 combo no.2 100 tab PO 05/08/19 04/18/23 mg tablet,extended release (B-100 Complex ER) nitroglycerin 0.4 mg sublingual 0.4 mg sublingual Q5M PRN 07/17/19 08/10/23 tablet apixaban 2.5 mg tablet (Eliquis) 2.5 mg PO BID 08/10/21 08/10/23 ascorbic acid (vitamin C) 500 mg 500 mg PO DAILY 08/10/21 08/10/23 tablet (Vitamin C) carvedilol 12.5 mg tablet 12.5 mg PO BID 08/10/21 08/10/23 lisinopril 40 mg tablet 20 mg PO DAILY 08/10/21 08/10/23 loratadine 10 mg tablet 10 mg PO DAILY 08/01/22 08/10/23 levothyroxine 50 mcg tablet 75 mcg PO DAILY 08/22/22 04/18/23 (Synthroid) coenzyme Q10 100 mg capsule 100 mg PO DAILY 12/26/22 08/10/23 fluticasone propionate 50 2 spray intranasal DAILY 30 days 01/30/23 04/18/23 mcg/actuation nasal #16 grams spray,suspension (Flonase Allergy Relief) famotidine 10 mg tablet 10 mg PO DAILY 04/18/23 08/10/23 ropinirole 0.25 mg tablet 0.25 mg PO QHS 04/18/23 08/10/23 conjugated estrogens 0.625 mg/gram 0.625 mg vaginal DIRECTED #90 06/18/23 08/10/23 vaginal cream (Premarin) grams atorvastatin 80 mg tablet 80 mg PO DAILY CVA #30 tabs 08/10/23 cephalexin 500 mg capsule 500 mg PO BID UTI 10 days #20 caps 08/10/23 Previous Rx's Medication Instructions Recorded fluticasone propionate 50 2 spray intranasal DAILY 30 days 01/30/23 mcg/actuation nasal #16 grams spray,suspension (Flonase Allergy Relief) conjugated estrogens 0.625 mg/gram 0.625 mg vaginal DIRECTED #90 06/18/23 vaginal cream (Premarin) grams atorvastatin 80 mg tablet 80 mg PO DAILY CVA #30 tabs 08/10/23 cephalexin 500 mg capsule 500 mg PO BID UTI 10 days #20 caps 08/10/23 Allergies Allergy/AdvReac Type Severity Reaction Status Date / Time levofloxacin Allergy Severe Unverified 08/10/23 10:12 Penicillins Allergy Intermediate RASH Unverified 08/10/23 10:12 erythromycin base Allergy Unknown Unverified 08/10/23 10:12 sulfamethoxazole Allergy Verified 08/10/23 10:12 [From Bactrim] trimethoprim [From Bactrim] Allergy Verified 08/10/23 10:12 General Stated Complaint: Dizzy/Sync JUNG: 3 Review of Systems All systems reviewed & are unremarkable except as noted in HPI and below PFSH All Active Problems (Updated 08/10/23 @ 14:36 by SADIE Venegas) Urinary tract infection (Acute) Cerebrovascular ischemia, transient (Chronic) Impairment of speech discrimination (Acute) Fall (Acute) Fracture of nasal bone (Acute) Contusion of rib on left side (Acute) Chest wall contusion (Acute) Colostomy in place (Acute 04/03/13) S/P middle ear reconstruction (Acute 04/03/13) Postoperative hypothyroidism (Acute 04/03/13) Lichen sclerosus et atrophicus (Acute 04/03/13) Ischemic colitis (Acute 04/03/13) Hx of malignant neoplasm of breast (Acute 04/03/13) 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) Diabetes mellitus (Acute 04/03/13) Medical History (Updated 08/10/23 @ 14:36 by SADIE Venegas) History of ischemic colitis Chest pain, atypical Stage 4 chronic kidney disease Sciatica, right side DNR (do not resuscitate) Cystitis Bradycardia Allergic rhinitis Pain in joint of right knee Hx of recurrent urinary tract infection Decreased hearing of right ear Postnasal drip Hypothyroid Hyperlipidemia Hypertension BPPV (benign paroxysmal positional vertigo) Breast cancer Myocardial infarct DK (obstructive sleep apnea) History of cervical dysplasia Chest pain CKD (chronic kidney disease) stage 3, GFR 30-59 ml/min Lumbago Tear of both anterior and posterior cruciate ligaments of knee Essential tremor TIA (transient ischemic attack) CAD (coronary artery disease) Sciatica Paroxysmal atrial fibrillation Right bundle branch block Tendon disorder GERD (gastroesophageal reflux disease) Dyspnea on exertion Angina pectoris Rectal pouchitis Chronic cough Acute recurrent cystitis Anemia of chronic renal failure Surgical History Colostomy (~2006) for Ischemic colitis Breast, Mastectomy (~2001) Right Social History Smoking/Tobacco Use Status: Former Tobacco Use Smoking risk assessment performed?: Yes Alcohol Intake: never Substance use type: does not use Seatbelt use: always Exam Narrative Exam Narrative: GENERAL APPEARANCE: Well-nourished, non-toxic, awake and alert, atraumatic, no acute distress. SKIN: Warm, pink, dry, intact, without rashes/lesions/ulcerations. HEAD: Normocephalic, atraumatic, normal hair distribution for gender/age. EYES: Pupils PERRLA, EOMs intact without nystagmus, normal conjunctiva, no exudates on lids/lashes, visual charlton intact. ENT: Nares patent, no circumoral cyanosis, no facial swelling NECK: Supple, trachea midline, painless cervical ROM. LUNGS/CHEST: Lungs CTA bilaterally - no rales at bases, no rhonchi/no wheezing, non-labored respirations, normal A/P diameter, symmetrical expansion, no chest wall deformity HEART (CV/PV): Irregular rate and rhythm without murmur, no peripheral edema, no JVD. ABDOMEN: Soft, non-distended, no guarding. MSK: Normal ROM, no swelling/deformity to bilateral UEs or LEs, moving all extremities without weakness, no cyanosis, spine midline without tenderness, normal curvature. NEURO: Mental Status AAOx4 - alert to person, place, time, events No facial droop, no forehead involvement, no dysmetria with cerebellar testing- [id number] WNL- baseline essential tremor Motor: No focal weakness - strength 5/5 in bilateral UEs and LEs, proximal and distal, symmetric. Sensory: sensation intact to light touch globally. Gait normal: patient ambulated without ataxia into ED room. PSYCH: euthymic, cooperative, pleasant, appropriate speech Course Vital Signs Vital signs: Vital Signs Temperature 36.3 C L 08/10/23 10:05 Pulse 78 08/10/23 10:05 Respiratory Rate 20 08/10/23 10:05 Blood Pressure 165/91 H 08/10/23 10:05 Pulse Oximetry 96 08/10/23 10:05 Temperature 36.3 C L 08/10/23 10:05 Pulse 78 08/10/23 10:05 Respiratory Rate 20 08/10/23 10:05 Respiratory Effort Normal, Non-Labored 08/10/23 10:12 Blood Pressure 165/91 H 08/10/23 10:05 Blood Pressure Position Supine 08/10/23 10:05 Pulse Oximetry 96 08/10/23 10:05 Oxygen Delivery Method Room Air 08/10/23 10:05 Oxygen Flow Rate 0 08/10/23 10:05 Pain Level 0 08/10/23 10:05
[2023-08-10 10:46] LABS: Abs Immature Grans 0.03 10^3/uL (0.0-0.06); Absolute Basophil Count 0.05 10^3/uL (0.0-0.2); Absolute Eosinophil Count 0.14 10^3/uL (0.0-0.7); Absolute Lymphocyte Count 1.64 10^3/uL (1.2-3.4); Absolute Monocyte Count 1.14 10^3/uL (0.1-0.8); Absolute Neutrophil Count 4.96 10^3/uL (1.2-6.7); Basophils % 0.6; Eosinophils % 1.8; HCT 38.3 % (36.0-46.0); HGB 12.4 g/dL (11.2-15.7); Immature Grans % 0.4; Lymphocytes % 20.6; MCH 33.3 pg (27.0-33.0); MCHC 32.4 % (32.0-36.0); MCV 103 fL (80-95); MPV 9.6 fL (8.0-11.0); Monocytes % 14.3; Neutrophils % 62.3; Platelet Count 214 10^3/uL (130-400); RBC 3.72 10^6/uL (3.93-5.22); RDW 14.2 % (11.7-14.6); RDW-SD 54.3 fL; WBC 7.96 10^3/uL (4.4-10.8)
[2023-08-10 10:47] LABS: Lactate 1.5 mmol/L (0.6-1.4)
[2023-08-10 11:11] LABS: ALT 17 U/L (14-59); AST 14 U/L (15-37); Albumin 3.7 g/dL (3.4-5.0); Alkaline Phosphatase 47 U/L (46-116); Anion Gap 10.8 mmol/L (3-11); BUN 53 mg/dL (7-18); Bilirubin, Total 0.6 mg/dL (0.2-1.0); CO2 25.2 mmol/L (21.0-32.0); CREATININE 3.1 mg/dL (0.55-1.02); Calcium 9.9 mg/dL (8.5-10.1); Chloride 104 mmol/L (98-107); Estimated GFR 14.11 (mL/min/1.73m2); Glucose 130 mg/dL (74-106); Magnesium 2.5 mg/dL (1.8-2.4); NT-proBNP 8910 pg/mL (<300); Potassium 4.5 mmol/L (3.5-5.1); Sodium 140 mmol/L (136-145); Troponin I < 50 ng/L (<or=60)
[2023-08-10 11:30] LABS: Bilirubin Negative (Negative); Blood Negative (Negative); Clarity Sl Cloudy (Clear); Glucose Negative (Negative); Ketones Negative (Negative); Leukocyte Esterase Moderate (Negative); Nitrite Negative (Negative); Urobilinogen 0.2 mg/dL (Up to 0.2)
[2023-08-10 11:36] LABS: RBC 0-2 HPF (0-2); WBC 20-50 HPF (0-5)
[2023-08-10 11:37] LABS: Bacteria Many HPF (Negative); C & S Indicated? No/Sq. Contamination; Casts Negative LPF (Negative); Crystals Negative HPF (Negative); Epithelial Cells Many HPF (Negative); Mucus Trace (Negative)
[2023-08-10] MEDS: cefTRIAXone 1 GM/50 ML BAG IVPB (11:55)
--- NOTE | 2023-08-10 12:15 | DI.CT_ITS ---
Exam(s) CT HEAD WO EXAM: CT HEAD WO CLINICAL HISTORY: dizziness, confusion yesterday. TECHNIQUE: Imaging Protocol: Axial computed tomography images with coronal and sagittal reformatted images were created and reviewed COMPARISON: CT CT HEAD CERV SPINE FACIAL WO from 08/10/2021 FINDINGS: There are no skull fractures. There is no fluid in the visualized paranasal sinuses. There is no evidence of intracranial hemorrhage, mass effect, or shift of midline structures. There are no extra-axial fluid collections. The ventricles are not enlarged or shifted and there is no blo od within the ventricular system nor within the basal cisterns. There is subtle hypodensity evident in the left occipital lobe, more so than previous. Possibly inte rval nonhemorrhagic infarct. IMPRESSION: Subtle asymmetric hypodensity in the left occipital lobe. If clinically indicated follow-up MRI with diffusion imaging can be performed to determine if there has been ischemic infarct at this location Discussed with ER physician. RADIATION DOSE DELIVERED: Total DLP DATA REPOSITORY: All CT scans at this facility are submitted to the National Radiology Data Registry (NRDR) Dose Index Registry (DIR) with the [employer] ([employer]). RADIATION OPTIMIZATION: All CT scans at this facility use at least one of these dose optimization te chniques: automated exposure control; mA and/or kV adjustment per patient size (includes targeted exa ms where dose is matched to clinical indication); or iterative reconstruction.
--- NOTE | 2023-08-10 12:15 | DI.US_ITS ---
Exam(s) US CAROTID EXAM: US CAROTID CLINICAL HISTORY: dizziness, visual changes, unable to MRI/CTA. TECHNIQUE: Ultrasound carotids performed using grayscale, color-flow, and spectral Doppler imaging. COMPARISON: No exams were available for comparison FINDINGS: CAROTID ARTERIES: There is plaque evident at the carotid bulbs and proximal ICAs bilaterally, slightl y more so on the right side. Peak systolic as well as end-diastolic velocities are not elevated. Fo r, minimally elevated ratios on the right side evident. VERTEBRAL ARTERIES: Antegrade flow demonstrated in both vertebral arteries. Measurements: R Bulb: 47.5cm/s PS / 12cm/s ED R CCA: 35.7cm/s PS / 8.5cm/s ED R ECA: 61.5cm/s PS / 8.4cm/s ED R ICA Prox: 44.4cm/s PS / 10.4cm/s ED R ICA Mid: 61.4cm/s PS / 17.2cm/s ED R ICA Distal: 69.6cm/s PS /22.5cm/s ED R Vert: 39.4cm/s PS / 13.1cm/s ED R SVR: 2 R DVR: 2.6 L Bulb: 45.9cm/s PS / 10.2cm/s ED L CCA: PS / 14cm/s ED L ECA: 54.5cm/s PS / 8.6cm/s ED L ICA Prox: 76.7cm/s PS / 23.4cm/s ED L ICA Mid: 82.9cm/s PS / 25.9cm/s ED L ICA Distal: 79.5cm/s PS / 30.6cm/s ED L Vert: 26.9cm/s PS / 8.6cm/s ED L SVR: 1.8 L DVR: 1.8 IMPRESSION: There is calcified and noncalcified plaque in the distal common carotid arteries, carotid bulbs, and proximal internal carotid arteries bilaterally, more so on the right side. Amount of stenosis on the right side is estimated at 50-69 percent. Amount of stenosis on the left side estimated at slightly less than 50 percent. Antegrade flow is demonstrated in both vertebral arteries. Criteria for Carotid Stenosis: Normal: ICA PSV <125 cm/s no plaque or intimal thickening is visible. <50% stenosis: ICA PSV <125 cm/s and plaque or intimal thickening is visible. 50-69% stenosis: ICA PSV is 125-250 cm/s and plaque is visible. >70% stenosis to near occlusion: ICA PSV >250 cm/s with visible plaque and luminal narrowing. DATA REPOSITORY:
--- NOTE | 2023-08-10 14:01 | NUR.NOTE ---
Nursing Note:PT needs follow up with [facility] Neurology early next week for a small stroke. Vy, ED
[2023-08-10] MEDS: Lisinopril 20 MG TAB 40 MG PO (14:30)
[2023-08-10] MEDS: Carvedilol 12.5 MG TAB PO (14:30)
== END 2023-08-10 14:56 | disposition home or self-care (01) ==
PROVIDERS: Emergency Provider Physician Assistant; PCP Nurse Practitioner Family
DX: G45.9 Transient cerebral ischemic attack, unspecified (principal); N39.0 Urinary tract infection, site not specified; I12.9 Hypertensive chronic kidney disease with stage 1 through stage 4 chronic kidney disease, or unspecified chronic kidney disease; N18.4 Chronic kidney disease, stage 4 (severe); I25.119 Atherosclerotic heart disease of native coronary artery with unspecified angina pectoris; I25.2 Old myocardial infarction; I45.2 Bifascicular block; E78.5 Hyperlipidemia, unspecified; Z79.82 Long term (current) use of aspirin; Z79.01 Long term (current) use of anticoagulants; Z95.0 Presence of cardiac pacemaker; Z79.84 Long term (current) use of oral hypoglycemic drugs
CPT/HCPCS: 36415; 80053; 93005; 96365; 99284; 70450; 81003; 81015; 83605; 83735; 83880; 84484; 85025; 93010; 93880; J0696

== ENCOUNTER → 2023-09-06 13:24 | Outpatient (BNVA) | payer MEDICARE, SELFPAY | PROVIDERS: PCP Nurse Practitioner Family; Referring Provider Nurse Practitioner Family; Visit Provider Psychiatry & Neurology Neurology | DX: I63.9 Cerebral infarction, unspecified (principal); I65.21 Occlusion and stenosis of right carotid artery; G25.0 Essential tremor; I10 Essential (primary) hypertension; E11.9 Type 2 diabetes mellitus without complications | CPT/HCPCS: 99215 ==

== ENCOUNTER 2024-02-05 15:45 | Outpatient (REF) | payer MEDICARE, SELFPAY ==
[2024-02-05 19:08] LABS: Abs Immature Grans 0.03 10^3/uL (0.0-0.06); Absolute Basophil Count 0.06 10^3/uL (0.0-0.2); Absolute Eosinophil Count 0.22 10^3/uL (0.0-0.7); Absolute Lymphocyte Count 1.45 10^3/uL (1.2-3.4); Absolute Monocyte Count 1.05 10^3/uL (0.1-0.8); Basophils % 0.8 %; Eosinophils % 2.9 %; HCT 34.4 % (36.0-46.0); HGB 10.9 g/dL (11.2-15.7); Immature Grans % 0.4 %; Lymphocytes % 19.3 %; MCH 33.2 pg (27.0-33.0); MCHC 31.7 % (32.0-36.0); MCV 105 fL (80-95); MPV 10.9 fL (8.0-11.0); Neutrophils % 62.6 %; Platelet Count 197 10^3/uL (130-400); RBC 3.28 10^6/uL (3.93-5.22); RDW 14.6 % (11.7-14.6); RDW-SD 56.9 fL; WBC 7.51 10^3/uL (4.4-10.8)
[2024-02-05 19:37] LABS: ALT 23 U/L (14-59); AST 12 U/L (15-37); Albumin 3.9 g/dL (3.4-5.0); Alkaline Phosphatase 83 U/L (46-116); Anion Gap 11.1 mmol/L (3-11); BUN 73 mg/dL (7-18); Bilirubin, Total 0.4 mg/dL (0.2-1.0); CO2 22.9 mmol/L (21.0-32.0); CREATININE 3.4 mg/dL (0.55-1.02); Calcium 9.5 mg/dL (8.5-10.1); Chloride 104 mmol/L (98-107); Estimated GFR 12.63 (mL/min/1.73m2); Ferritin 55 ng/mL (8-252); Glucose 146 mg/dL (74-106); Sodium 138 mmol/L (136-145); Total Protein 7.1 g/dL (6.4-8.2)
[2024-02-05 20:15] LABS: Iron 76 ug/dL (50-170); Total Iron Binding Capacity 293 ug/dL (250-450); Transferrin Sat 26 % (15-50)
== END 2024-02-05 15:46 | disposition home or self-care (01) ==
LOC: NCHCN 15:45
PROVIDERS: PCP Nurse Practitioner Family; Visit Provider Nurse Practitioner Family
DX: D63.1 Anemia in chronic kidney disease (principal); G25.81 Restless legs syndrome; N18.4 Chronic kidney disease, stage 4 (severe)
CPT/HCPCS: 80053; 82728; 83540; 83550; 83735; 85025

== ENCOUNTER → 2024-04-07 12:19 | Outpatient (BNVA) | payer MEDICARE, OTHER, SELFPAY | PROVIDERS: PCP Nurse Practitioner Family; Referring Provider Nurse Practitioner Family; Visit Provider Psychiatry & Neurology Neurology | DX: I65.21 Occlusion and stenosis of right carotid artery (principal); I69.398 Other sequelae of cerebral infarction; R26.89 Other abnormalities of gait and mobility; G25.0 Essential tremor; R44.3 Hallucinations, unspecified | CPT/HCPCS: 99215 ==

== ENCOUNTER 2024-04-25 02:44 | Outpatient (CLI) | payer MEDICARE, OTHER, SELFPAY ==
--- NOTE | 2024-04-29 20:45 | PDOC.EEG ---
Neurology EEG EEG: [facility] Department of Neurology LONG-TERM AMBULATORY EEG REPORT Date of Recordin04/25/24 at 15:35:42 to 04/26/24 at 10:32:34 Interpreting Physician: Dr. Harleen Montaño PCP/Referring Provider: Rhina Cazares NP Reason for study: Ms. Nicolas is an 88 year-old with a history of stroke and now new visual hallucinations concerning for seizure. Current Medications: Home Medications ?Medication ?Instructions ?Recorded ?Confirmed ?Type aspirin 81 mg tablet,delayed 81 mg PO DAILY 05/08/19 04/07/24 History release (Adult Aspirin Regimen) cholecalciferol (vitamin D3) 50 2,000 unit PO DAILY 05/08/19 04/07/24 History mcg (2,000 unit) capsule glipizide 2.5 mg tablet, extended 2.5 mg PO DAILY 05/08/19 04/07/24 History release 24 hr magnesium gluconate 27 mg 27 mg PO DAILY 05/08/19 04/07/24 History magnesium (500 mg) tablet (Mag-G) torsemide 10 mg tablet 10 mg PO DAILY 05/08/19 04/07/24 History apixaban 2.5 mg tablet (Eliquis) 2.5 mg PO BID 08/10/21 04/07/24 History ascorbic acid (vitamin C) 500 mg 500 mg PO DAILY 08/10/21 04/07/24 History tablet (Vitamin C) carvedilol 12.5 mg tablet 12.5 mg PO BID 08/10/21 04/07/24 History lisinopril 40 mg tablet 20 mg PO DAILY 08/10/21 04/07/24 History fluticasone propionate 50 2 spray intranasal DAILY 30 days 01/30/23 04/07/24 Rx mcg/actuation nasal #16 grams spray,suspension (Flonase Allergy Relief) atorvastatin 80 mg tablet 80 mg PO DAILY CVA #30 tabs 08/10/23 04/07/24 Rx levothyroxine 50 mcg tablet 50 mcg PO DAILY 04/07/24 04/07/24 History (Synthroid) METHODS: An 18-channel digitized electroencephalogram was recorded in the ambulatory setting with video. The 10/20 international system of electrode placement was used and bipolar and referential electrode montages were recorded. In addition to EEG the patient was monitored for EKG and by video. Activation procedures of photic stimulation and hyperventilation were performed if applicable. The duration of the recording was ~19 hours. DESCRIPTION OF EEG: Waking background activity: During maximal wakefulness a 10-Hz posterior background rhythm was present which was well-modulated, symmetrical, reactive to eye opening, and of moderate voltage. Faster frequencies were present in the bilateral anterior head regions. There was a normal anterior-posterior voltage gradient. Drowsy and sleeping background activity: During drowsiness, there was attenuation of the posterior dominant background rhythm and vertex waves. Normal stage II and III sleep was present with symmetrical sleep spindles, K-complexes, and vertex waves with slowing of the background rhythm to delta/theta frequencies. REM sleep manifested by rapid lateral eye movements and faster background rhythms was recorded. Arousal was unremarkable. Interictal abnormalities: none. Ictal findings: No events captured. (Diary had two events but one was marking to go to the bathroom and the other was that she sang a song). Activating Procedures: Photic stimulation was performed which produced a symmetrical posterior driving response at various flash frequencies. Hyperventilation was not performed. EKG: EKG revealed an irregular rhythm without significant tachycardia. INTERPRETATION: This long-term EEG is normal during the awake and sleep states as well as during the activation procedure. No events were captured. PRIOR EEG: none CLINICAL CORRELATION: No focal regions of cerebral dysfunction or epileptiform activity was present. Epilepsy remains a clinical diagnosis and a normal EEG does not rule out epilepsy. Clinical correlation is advised. Harleen Montaño MD Date of service: 04/25/24
== END 2024-04-29 23:59 | disposition home or self-care (01) ==
LOC: RT 02:45
PROVIDERS: PCP Nurse Practitioner Family; Visit Provider Psychiatry & Neurology Neurology
DX: R44.3 Hallucinations, unspecified (principal); Z86.73 Personal history of transient ischemic attack (TIA), and cerebral infarction without residual deficits
CPT/HCPCS: 95714; 95720

== ENCOUNTER → 2024-05-05 07:10 | Outpatient (BNVA) | payer MEDICARE, OTHER, SELFPAY | PROVIDERS: PCP Nurse Practitioner Family; Referring Provider Nurse Practitioner Family; Visit Provider Psychiatry & Neurology Neurology ==

== ENCOUNTER → 2024-05-29 12:18 | Outpatient (BNVA) | payer MEDICARE, OTHER, SELFPAY | PROVIDERS: PCP Nurse Practitioner Family; Visit Provider Psychiatry & Neurology Neurology | DX: G25.0 Essential tremor (principal); R44.3 Hallucinations, unspecified; G43.109 Migraine with aura, not intractable, without status migrainosus; I95.1 Orthostatic hypotension | CPT/HCPCS: 99215 ==

== ENCOUNTER 2024-08-26 09:20 | Emergency (ER) | payer MEDICARE, OTHER, SELFPAY ==
[2024-08-26] VITALS (93 sets, daily range): BP systolic 135–181; BP diastolic 77–120; PULSE 72–108; RESP 10–42; TEMP 35.7–36.5; O2SAT 73–97
--- NOTE | 2024-08-26 09:30 | DI.CT_ITS ---
Exam(s) CT ABDOMEN PELVIS WO EXAM: CT ABDOMEN PELVIS WO CLINICAL HISTORY: diffuse abd pain,ostomy, diarrhea, nausea. TECHNIQUE: Imaging Protocol: Axial computed tomography images with coronal and sagittal reformatted images were created and reviewed. Oral: / no COMPARISON: CT CT CHEST/ABD/PEL WO from 08/10/2021 FINDINGS: Lung Bases: No acute findings. Liver: Normal density. No suspicious mass. Gallbladder and biliary tract: Small dependent stones in the gallbladder. No gallbladder wall thic kening. No biliary dilation. Pancreas: Normal density. No abnormal calcifications or inflammatory process. Spleen: Normal. Kidneys: Normal size, contour and axis. No radiodense stones. No obstructive uropathy. Small hyperd ense cyst right kidney. No suspicious masses seen. Adrenal glands: Stable adrenal enlargement. Lymph nodes: Within normal limits. Vasculature: Abdominal aorta non-dilated. Heavily calcified. The aorta tapers distally and there is apparent occlusion at the bifurcation. The iliac arteries are also heavily calcified. Soft tissues: Left-sided colostomy again noted. Flu small fat containing hernia in the midline above the level of the umbilicus, unchanged. Bladder: No wall thickening. No mass or calculi. Bowel: No obstruction. Stranding in the fat surrounding the ascending through transverse colon exten ding to the level of the left-sided colostomy. Fluid noted in the colostomy bag. Findings are consi stent with colitis. No pneumatosis. The oversewn portion of the rectosigmoid is unremarkable. Peritoneal cavity: No ascites. No focal collection. No free air. Reproductive organs: Unremarkable. Bones: Unremarkable for age. IMPRESSION: Findings consistent with right-sided colitis extending from the cecum through the level of the colost beto. RADIATION DOSE DELIVERED: 461.9mGy.cm Total DLP DATA REPOSITORY: All CT scans at this facility are submitted to the National Radiology Data Registry (NRDR) Dose Index Registry (DIR) with the [employer] (A[employer]). RADIATION OPTIMIZATION: All CT scans at this facility use at least one of these dose optimization te chniques: automated exposure control; mA and/or kV adjustment per patient size (includes targeted exa ms where dose is matched to clinical indication); or iterative reconstruction.
--- NOTE | 2024-08-26 09:30 | RT.EKG_ITS ---
APPROVED REPORT Exam: Resting ECG Reason for Exam: weakness Patient Location: E HR:85 bpm ECG Measurements Heart Rate 85 AXIS RI [id number] P [id number] QRSd 128 QRS 132 QT 385 T -1 QTc 459 Conclusion Atrial fibrillation...V-rate 71-107, irreg A-activity RBBB and LPFB...QRSd >120mS, axis(90,210) Rate controlled atrial fibrillation at a rate of 85. Bifascicular block. Low voltage. QTc within n ormal limits. No acute ST segment abnormalities nor T wave versions. Appears similar to prior. Sallie or dated last year.
[2024-08-26 10:03] LABS: Lactate 1.5 mmol/L (0.6-1.4)
[2024-08-26 10:06] LABS: Abs Immature Grans 0.02 10^3/uL (0.0-0.06); Absolute Basophil Count 0.03 10^3/uL (0.0-0.2); Absolute Eosinophil Count 0.06 10^3/uL (0.0-0.7); Absolute Lymphocyte Count 0.75 10^3/uL (1.2-3.4); Absolute Monocyte Count 1.22 10^3/uL (0.1-0.8); Absolute Neutrophil Count 3.96 10^3/uL (1.2-6.7); Basophils % 0.5 %; HCT 33.8 % (36.0-46.0); HGB 10.6 g/dL (11.2-15.7); Immature Grans % 0.3 %; Lymphocytes % 12.4 %; MCH 32.8 pg (27.0-33.0); MCHC 31.4 % (32.0-36.0); MCV 105 fL (80-95); MPV 9.7 fL (8.0-11.0); Monocytes % 20.2 %; Neutrophils % 65.6 %; Platelet Count 207 10^3/uL (130-400); RBC 3.23 10^6/uL (3.93-5.22); RDW 15.4 % (11.7-14.6); RDW-SD 59.5 fL; WBC 6.04 10^3/uL (4.4-10.8)
[2024-08-26 10:25] LABS: ALT 16 U/L (14-59); AST 14 U/L (15-37); Albumin 3.8 g/dL (3.4-5.0); Alkaline Phosphatase 65 U/L (46-116); Anion Gap 13.2 mmol/L (3-11); BUN 53 mg/dL (7-18); Bilirubin, Total 0.69 mg/dL (0.2-1.0); CO2 23.8 mmol/L (21.0-32.0); Calcium 9.8 mg/dL (8.5-10.1); Chloride 108 mmol/L (98-107); Estimated GFR 10.99 (mL/min/1.73m2); Glucose 132 mg/dL (74-106); Lipase 60 U/L (<78); Magnesium 2.1 mg/dL (1.8-2.4); Potassium 4.5 mmol/L (3.5-5.1); Sodium 145 mmol/L (136-145); Total Protein 7.8 g/dL (6.4-8.2)
[2024-08-26 10:27] LABS: Troponin I 30 ng/L (<or=51)
[2024-08-26] MEDS: Prochlorperazine 10 MG/2 ML VIAL 5 MG IVP ×2 (10:27→12:20)
[2024-08-26] MEDS: Normal Saline 500 ML IV (10:27)
[2024-08-26 10:28] LABS: CREATININE 3.8 mg/dL (0.55-1.02)
--- NOTE | 2024-08-26 10:57 | ED.GENADUL_ITS ---
Discharge Plan Disposition Patient Disposition: Home Discharge Details Clinical Impression: Colitis, Acute UTI, Abdominal aorta thrombosis Primary Care Provider: GISELL JEREZ ED Provider: Antonella Mcgraw Home Meds and New Rx's Prescriptions: New azithromycin 500 mg tablet 500 mg PO DAILY 3 Days Qty: 3 0RF prochlorperazine maleate [Compazine] 10 mg tablet 10 mg PO Q6H PRNQty: 10 0RF Saccharomyces boulardii [Florastor] 250 mg capsule 250 mg PO BID Qty: 14 0RF cephalexin 500 mg capsule 500 mg PO BID 5 Days Qty: 10 0RF Continued glipizide 2.5 mg tablet extended release 24hr 2.5 mg PO DAILY torsemide 10 mg tablet 20 mg PO DAILY aspirin [Adult Aspirin Regimen] 81 mg tablet,delayed release (DR/EC) 81 mg PO DAILY magnesium gluconate [Mag-G] 27 mg magnesium (500 mg) tablet 27 mg PO DAILY cholecalciferol (vitamin D3) 2,000 unit capsule 2,000 unit PO DAILY levothyroxine [Synthroid] 50 mcg tablet 50 mcg PO .COMPLEX Rx Instructions: 50 mcg orally QOD; fluticasone propionate [Flonase Allergy Relief] 50 mcg/actuation spray,suspension 2 spray intranasal DAILY 30 Days Qty: 16 6RF Rx Instructions: administer into each nostril carvedilol 12.5 mg tablet 12.5 mg PO BID ascorbic acid (vitamin C) [Vitamin C] 500 mg Tablet 500 mg PO DAILY lisinopril 40 mg tablet 20 mg PO DAILY Eliquis 2.5 mg tablet 2.5 mg PO BID cyanocobalamin (vitamin B-12) [B-12 DOTS] 500 mcg tablet 500 mcg PO DAILY famotidine 10 mg tablet 10 mg PO DAILY Patient Comments: TAKE 1 TABLET BY MOUTH ONCE DAILY levothyroxine 75 mcg tablet 75 mcg PO .COMPLEX Rx Instructions: 75 mcg orally QOD; atorvastatin 80 mg tablet 80 mg PO DAILY Qty: 30 0RF Discharge Instructions Instructions: Colitis Additional Instructions: Take Compazine as needed for nausea and vomiting Take the azithromycin for the next 3 days once daily take the keflex daily for the next 5 days for UTI Stay away from lactose or high fiber foods 32 oz of fluids daily, may increase to 48 oz while having diarrhea to compensate take a probiotic daily recheck with pcp tomorrow and return earlier with new, worsening, or persistent complaints Referrals: GISELL JEREZ, [facility] [Primary Care Provider] - 1 day HPI General Date/Time Provider Initiated Documentation: 08/26/24 09:35 . HPI Narrative: This 89-year-old female presents with diarrhea since Sunday. She states it started after eating half a pint of coffee ice cream. She has some abdominal discomfort but not severe pain. She has had some nausea without vomiting which started today. She denies any blood in her vomit. She does take Eliquis daily for history of atrial fibrillation and does have a pacemaker. She denies any chest pain or shortness of breath. She denies any significant dizziness or weakness. She denies any falls or injuries. Denies any recent antibiotics or known sick contacts or hospitalizations. Denies history of C. difficile in the past. States she has changed her colostomy bag 6 times since Sunday night per patient. This is unusual for her. Related Data Home Medications ?Medication ?Instructions ?Recorded ?Confirmed aspirin 81 mg tablet,delayed 81 mg PO DAILY 05/08/19 08/26/24 release (Adult Aspirin Regimen) cholecalciferol (vitamin D3) 50 2,000 unit PO DAILY 05/08/19 08/26/24 mcg (2,000 unit) capsule glipizide 2.5 mg tablet, extended 2.5 mg PO DAILY 05/08/19 08/26/24 release 24 hr magnesium gluconate 27 mg 27 mg PO DAILY 05/08/19 08/26/24 magnesium (500 mg) tablet (Mag-G) torsemide 10 mg tablet 20 mg PO DAILY 05/08/19 08/26/24 apixaban 2.5 mg tablet (Eliquis) 2.5 mg PO BID 08/10/21 08/26/24 ascorbic acid (vitamin C) 500 mg 500 mg PO DAILY 08/10/21 08/26/24 tablet (Vitamin C) carvedilol 12.5 mg tablet 12.5 mg PO BID 08/10/21 08/26/24 lisinopril 40 mg tablet 20 mg PO DAILY 08/10/21 08/26/24 fluticasone propionate 50 2 spray intranasal DAILY 30 days 01/30/23 08/26/24 mcg/actuation nasal #16 grams spray,suspension (Flonase Allergy Relief) atorvastatin 80 mg tablet 80 mg PO DAILY CVA #30 tabs 08/10/23 08/26/24 levothyroxine 50 mcg tablet 50 mcg PO .COMPLEX 04/07/24 08/26/24 (Synthroid) Saccharomyces boulardii 250 mg 250 mg PO BID #14 caps 08/26/24 capsule (Florastor) azithromycin 500 mg tablet 500 mg PO DAILY 3 days #3 tabs 08/26/24 cephalexin 500 mg capsule 500 mg PO BID 5 days #10 caps 08/26/24 cyanocobalamin (vitamin B-12) 500 500 mcg PO DAILY 08/26/24 08/26/24 mcg tablet (B-12 DOTS) famotidine 10 mg tablet 10 mg PO DAILY 08/26/24 08/26/24 levothyroxine 75 mcg tablet 75 mcg PO .COMPLEX 08/26/24 08/26/24 prochlorperazine maleate 10 mg 10 mg PO Q6H PRN #10 tabs 08/26/24 tablet (Compazine) Previous Rx's ?Medication ?Instructions ?Recorded fluticasone propionate 50 2 spray intranasal DAILY 30 days 01/30/23 mcg/actuation nasal #16 grams spray,suspension (Flonase Allergy Relief) atorvastatin 80 mg tablet 80 mg PO DAILY CVA #30 tabs 08/10/23 Saccharomyces boulardii 250 mg 250 mg PO BID #14 caps 08/26/24 capsule (Florastor) azithromycin 500 mg tablet 500 mg PO DAILY 3 days #3 tabs 08/26/24 cephalexin 500 mg capsule 500 mg PO BID 5 days #10 caps 08/26/24 prochlorperazine maleate 10 mg 10 mg PO Q6H PRN #10 tabs 08/26/24 tablet (Compazine) Allergies Allergy/AdvReac Type Severity Reaction Status Date / Time levofloxacin Allergy Severe Other (See Unverified 08/26/24 09:28 Comment) Penicillins Allergy Intermediate RASH Unverified 08/26/24 09:28 erythromycin base Allergy Unknown Other (See Verified 08/26/24 12:14 Comment) sulfamethoxazole (From Allergy Other (See Verified 08/26/24 09:28 Bactrim) Comment) trimethoprim (From Bactrim) Allergy Other (See Verified 08/26/24 09:28 Comment) General Stated Complaint: Nausea/Vomit/Diar JUNG: 3 Exam Narrative Exam Narrative: alert And oriented, well-appearing 89-year-old female, moist mucous membranes, pupils equal round reactive to light and accommodation lungs clear to auscultation, cardiac rate rhythm regular abdomen diffusely mildly tender without rebound or guarding, liquid light green stool noted in ostomy bag, no CVA tenderness Course Vital Signs Vital signs: Vital Signs Temperature 36.5 C 08/26/24 09:24 Pulse 96 H 08/26/24 09:24 Respiratory Rate 16 08/26/24 09:24 Blood Pressure 143/77 H 08/26/24 09:24 Pulse Oximetry 97 08/26/24 09:24 Temperature 35.7 C L 08/26/24 10:39 Temperature Source Tympanic 08/26/24 10:39 Pulse 95 H 08/26/24 10:39 Pulse 92 H 08/26/24 09:57 Respiratory Rate 13 08/26/24 10:39 Respiratory Effort Short of Breath 08/26/24 10:39 Blood Pressure 176/79 H 08/26/24 09:57 Blood Pressure Mean 110 08/26/24 09:57 Blood Pressure Position Supine 08/26/24 10:39 Pulse Oximetry 94 08/26/24 10:39 Oxygen Delivery Method Room Air 08/26/24 10:39 Oxygen Flow Rate 0 08/26/24 09:24 Pain Level 0 08/26/24 10:39 Lab/Test Results Lab/Test Results: Laboratory Tests Range/Units 08/26/24 09:55 WBC (4.4-10.8) 10^3/uL 6.04 RBC (3.93-5.22) 10^6/uL 3.23 L Hgb (11.2-15.7) g/dL 10.6 L Hct (36.0-46.0) % 33.8 L MCV (80-95) fL 105 H MCH (27.0-33.0) pg 32.8 MCHC (32.0-36.0) % 31.4 L RDW (11.7-14.6) % 15.4 H Plt Count (130-400) 10^3/uL 207 MPV (8.0-11.0) fL 9.7 Immature Gran % % 0.3 Neutrophils % % 65.6 Lymphocytes % % 12.4 Monocytes % % 20.2 Eosinophils % % 1.0 Basophils % % 0.5 Nucleated RBC % (0.0-0.3) % 0.0 Absolute Neutrophils (1.2-6.7) 10^3/uL 3.96 Absolute Lymphocytes (1.2-3.4) 10^3/uL 0.75 L Absolute Monocytes (0.1-0.8) 10^3/uL 1.22 H Absolute Eosinophils (0.0-0.7) 10^3/uL 0.06 Absolute Basophils (0.0-0.2) 10^3/uL 0.03 VBG Lactate (0.6-1.4) mmol/L 1.5 H Sodium (136-145) mmol/L 145 Potassium (3.5-5.1) mmol/L 4.5 Chloride (98-107) mmol/L 108 H Carbon Dioxide (21.0-32.0) mmol/L 23.8 Anion Gap (3-11) mmol/L 13.2 H BUN (7-18) mg/dL 53 H Creatinine (0.55-1.02) mg/dL 3.8 H* Est GFR (CKD-EPI 2020) (mL/min/1.73m2) 10.99 Glucose (74-106) mg/dL 132 H Calcium (8.5-10.1) mg/dL 9.8 Magnesium (1.8-2.4) mg/dL 2.1 Total Bilirubin (0.2-1.0) mg/dL 0.69 AST (15-37) U/L 14 L ALT (14-59) U/L 16 Alkaline Phosphatase (46-116) U/L 65 Troponin I (<or=51) ng/L 30 Total Protein (6.4-8.2) g/dL 7.8 Albumin (3.4-5.0) g/dL 3.8 Lipase (<78) U/L 60 Medical Decision Making 89-year-old female presenting in no acute distress, given age and comorbidities I did order CT abdomen and pelvis noncontrast secondary to baseline chronic kidney disease and diagnostic labs. CBC with baseline anemia when compared to prior, chemistry with mild NILA and on chronic injury creatinine 3.8 increased from 3.4. BUN is actually improved to 53 from 74. Urinalysis shows possible squamous contamination, however greater than 50 white blood cells with limited epithelials, nitrate positive will treat with Keflex for the next 5 days 500 mg twice daily. Patient's creatinine clearance is 11 so I will treat with 500 mg of Keflex twice daily. Given patient's colitis and recurrent diarrhea the recommendation given her age is to treat with antibiotics so I will write for azithromycin 500 mg daily for 3 days, as patient's creatinine clearance is 11, she is stable to receive the typical dose after reviewing recommendations. Patient's nausea has improved she is able to tolerate p.o. It is recommended that she stay in the hospital for IV fluids and continued reassessment, however patient is adamantly declining and would like to be discharged home to care for her dog. She states she has adequate resources and friends to monitor. Her CT shows evidence of colitis and I will place a referral to [facility] vascular r egarding her aorta, she has good pulses bilaterally. Patient is discharged home in the care of her friend will monitor her closely. She was placed on referral list for recheck in [address] her on referral for vascular regarding a possible occlusion at the bifurcation of her aorta on this noncontrasted study. Given the threshold to return with new or worsening complaints Quality:SDOH Health Related Social Needs: No Data to Display PFSH All Active Problems (Updated 08/26/24 @ 12:43 by SADIE Sarmiento) Abdominal aorta thrombosis (Acute) Acute UTI (Acute) Colitis (Acute) Orthostatic hypotension (Acute) Ocular migraine (Acute) Hallucinations (Acute) Stroke (Chronic) Imbalance due to old stroke (Acute) Essential tremor (Acute) Carotid stenosis, right (Acute) Occipital stroke (Acute) Impairment of speech discrimination (Acute) Fall (Acute) Fracture of nasal bone (Acute) Contusion of rib on left side (Acute) Chest wall contusion (Acute) Colostomy in place (Acute 04/03/13) Postoperative hypothyroidism (Acute 04/03/13) Lichen sclerosus et atrophicus (Acute 04/03/13) Ischemic colitis (Acute 04/03/13) 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) Diabetes mellitus (Acute 04/03/13) Medical History History of ischemic colitis Stage 4 chronic kidney disease Sciatica, right side DNR (do not resuscitate) Cystitis Bradycardia Allergic rhinitis Hx of recurrent urinary tract infection Decreased hearing of right ear Hypothyroid Hyperlipidemia Hypertension BPPV (benign paroxysmal positional vertigo) Breast cancer Myocardial infarct DK (obstructive sleep apnea) History of cervical dysplasia Chest pain Lumbago Tear of both anterior and posterior cruciate ligaments of knee TIA (transient ischemic attack) CAD (coronary artery disease) Sciatica Paroxysmal atrial fibrillation Right bundle branch block Tendon disorder GERD (gastroesophageal reflux disease) Dyspnea on exertion Rectal pouchitis Chronic cough Acute recurrent cystitis Anemia of chronic renal failure Surgical History S/P appendectomy S/P bunionectomy S/P placement of cardiac pacemaker S/P middle ear reconstruction (04/03/13) Colostomy (~2006) for Ischemic colitis Breast, Mastectomy (~2001) Right Family History Father Hypertension Diabetes Heart disease Mother Hypertension Heart disease Social History Smoking/Tobacco Use Status: Former Tobacco Use Smoking risk assessment performed?: Yes Alcohol Intake: never Drug use: Never Substance use type: does not use Household members: none Housing: house Number of Children: 2 What is your relationship status?: Panel score (0-1 are the most socially isolated patients): 0 Seatbelt use: always Do you feel safe at home: Yes Do you feel safe in your relationship?: Yes
[2024-08-26 11:18] LABS: Troponin I 29 ng/L (<or=51)
[2024-08-26 11:32] LABS: C Diff PCR Negative (Negative)
[2024-08-26 11:56] LABS: Bilirubin Negative (Negative); Blood Trace-intact (Negative); Clarity Sl Cloudy (Clear); Glucose Negative (Negative); Ketones Negative (Negative); Leukocyte Esterase Moderate (Negative); Nitrite Positive (Negative); Specific Gravity 1.015 (1.005-1.025); Urobilinogen 0.2 mg/dL (Up to 0.2); pH 8.5 (5-8)
[2024-08-26 12:05] LABS: Bacteria Many HPF (Negative); C & S Indicated? No/Sq. Contamination; WBC >50 HPF (0-5)
[2024-08-26 17:18] LABS: Epithelial Cells Many HPF (Negative)
[2024-08-27 07:45] LABS: Salmonella PCR Negative (Negative); Shiga Toxin PCR Negative (Negative); Shigella/Enteroinvasive Ecoli Negative (Negative)
[2024-08-27 09:43] LABS: Campylobacter PCR Positive (Negative)
--- NOTE | 2024-08-27 09:53 | NUR.NOTE ---
Accessed Pt chart to locate the name of antibiotics prescribed to the Pt during this visit. Received a specimen report with Positive results. Document given to the providers.
--- NOTE | 2024-08-28 14:29 | NUR.NOTE ---
Accessed Pt chart to print off the last ER visit discharge. I faxed it with the speciment results to [facility], which is where the Pt gets her care.
== END 2024-08-26 12:46 | disposition home or self-care (01) ==
PROVIDERS: Emergency Provider Physician Assistant; PCP Nurse Practitioner Family
DX: K52.9 Noninfective gastroenteritis and colitis, unspecified (principal); N39.0 Urinary tract infection, site not specified; I12.9 Hypertensive chronic kidney disease with stage 1 through stage 4 chronic kidney disease, or unspecified chronic kidney disease; N18.4 Chronic kidney disease, stage 4 (severe); I25.10 Atherosclerotic heart disease of native coronary artery without angina pectoris; Z93.3 Colostomy status; Z86.73 Personal history of transient ischemic attack (TIA), and cerebral infarction without residual deficits
CPT/HCPCS: 36415; 80053; 83690; 87493; 87505; 93005; 96361; 96374; 96375; 99285; 74176; 81003; 81015; 83605; 83735; 84484; 85025; 93010; J0780

== ENCOUNTER → 2024-11-20 13:22 | Outpatient (BNVA) | payer MEDICARE, OTHER, SELFPAY | PROVIDERS: PCP Nurse Practitioner Family; Referring Provider Nurse Practitioner Family; Visit Provider Podiatrist | DX: L60.3 Nail dystrophy (principal); E11.42 Type 2 diabetes mellitus with diabetic polyneuropathy; I73.89 Other specified peripheral vascular diseases; D64.9 Anemia, unspecified; L84 Corns and callosities; B35.1 Tinea unguium; J44.9 Chronic obstructive pulmonary disease, unspecified; R60.0 Localized edema; I83.93 Asymptomatic varicose veins of bilateral lower extremities; L65.9 Nonscarring hair loss, unspecified; R23.8 Other skin changes; L60.2 Onychogryphosis; L85.8 Other specified epidermal thickening | CPT/HCPCS: 11055; 11721; 93922; 99214 ==

== ENCOUNTER 2025-06-15 09:34 | Emergency (ER) | payer MEDICARE, OTHER, SELFPAY ==
[2025-06-15] VITALS (41 sets, daily range): BP systolic 124–208; BP diastolic 48–143; PULSE 29–97; RESP 6–39; TEMP 35.1–36.6; O2SAT 79–97
--- NOTE | 2025-06-15 09:30 | RT.EKG_ITS ---
APPROVED REPORT Exam: Resting ECG Reason for Exam: AMS Patient Location: E HR:67 bpm ECG Measurements Heart Rate 67 AXIS AZ [id number] P [id number] QRSd 118 QRS 130 QT 454 T -37 QTc 481 Conclusion Afib/flut and V-paced complexes...other complexes, A-rate>240 IRBBB and LPFB...RAD, QRSd>120, term axis(90,270) Low voltage, extremity and precordial leads...extremity<0.5mV, precordial<1.0mV
--- NOTE | 2025-06-15 09:45 | DI.RAD_ITS ---
Exam(s) XR PORTABLE CHEST AP EXAM: XR PORTABLE CHEST AP CLINICAL HISTORY: SOB, Hypoxia, dizziness TECHNIQUE: 2D digital imaging was performed. COMPARISON: No exams were available for comparison FINDINGS: LUNGS: Clear. No pleural abnormality seen. HEART: enlarged. Pacemaker. AORTA: Normal diameter. BONES: Unremarkable for age. Soft tissues: Unremarkable. IMPRESSION: No acute findings. DATA REPOSITORY: RADIATION DOSE DELIVERED:
--- NOTE | 2025-06-15 09:53 | W.ED.GENAD ---
Discharge Plan Disposition Patient Disposition: Home Condition: Stable Discharge Details Clinical Impression: Dizziness, Colostomy status Primary Care Provider: GISELL JEREZ ED Provider: Cheryl Montero Home Meds and New Rx's Prescriptions: New meclizine 12.5 mg tablet 12.5 mg PO DAILY PRN PRN (Reason: dizziness) Qty: 7 0RF Rx Instructions: Take one tablet daily as needed for dizziness Continued glipizide 2.5 mg tablet extended release 24hr 2.5 mg PO DAILY torsemide 10 mg tablet 20 mg PO BID aspirin [Adult Aspirin Regimen] 81 mg tablet,delayed release (DR/EC) 81 mg PO DAILY magnesium gluconate [Mag-G] 27 mg magnesium (500 mg) tablet 27 mg PO DAILY cholecalciferol (vitamin D3) 2,000 unit capsule 2,000 unit PO DAILY levothyroxine [Synthroid] 50 mcg tablet 50 mcg PO DAILY fluticasone propionate [Flonase Allergy Relief] 50 mcg/actuation spray,suspension 2 spray intranasal DAILY 30 Days Qty: 16 6RF Rx Instructions: administer into each nostril nitroglycerin 0.4 mg tablet, sublingual 0.4 mg sublingual Q5M PRN Rx Instructions: do not exceed 3 doses per episode Premarin 0.625 mg/gram cream 0.625 mg vaginal DAILY Rx Instructions: off 5 days; repeat cycle tramadol 50 mg tablet 50 mg PO BID PRN ascorbic acid (vitamin C) 500 mg tablet 500 mg PO DAILY ketoconazole 2 % cream 1 applic topical DAILY Qty: 30 5RF Rx Instructions: Apply 1gram to all toenails daily. Apply at separate time from other topical creams. carvedilol 12.5 mg tablet 12.5 mg PO BID ascorbic acid (vitamin C) [Vitamin C] 500 mg Tablet 500 mg PO DAILY lisinopril 40 mg tablet 20 mg PO DAILY Eliquis 2.5 mg tablet 2.5 mg PO BID cyanocobalamin (vitamin B-12) [B-12 DOTS] 500 mcg tablet 3,000 mcg PO DAILY levothyroxine 75 mcg tablet 75 mcg PO .COMPLEX Rx Instructions: 75 mcg orally QOD; AtorvaliQ 20 mg/5 mL (4 mg/mL) suspension 20 mg PO DAILY Patient Comments: TAKE 20 ML BY MOUTH ONCE DAILY lactulose 10 gram/15 mL solution 10 g PO DAILY Patient Comments: GIVE 15ML BY MOUTH TWICE A DAY acetaminophen 500 mg capsule 500 mg PO Q6H PRN atorvastatin 80 mg tablet 80 mg PO DAILY Qty: 30 0RF Patient Comments: LIQUID MED Discharge Instructions Instructions: How to Care for Your Ostomy, Adult, Dizziness, Adult ED Additional Instructions: I did speak with Dr. Hodge who is on-call for surgery. CT all looks within normal limits. Please increase oral fluids. Please be seen sooner for any fever, confusion, blood or mucus in the stool. Please follow-up with a GI specialist or a colorectal surgeon for further evaluation and treatment At this time your lab work looks reassuring no evidence of urinary tract infection, no evidence of heart attack. Your BUN and creatinine kidney functions are improving from your previous results. Follow up with primary care provider in 3-5 days. Return to ED sooner if any worsening or concerns. Referrals: [facility] [Outside] Referral Note: Call to follow up with GI Colorectal surgery GASTROENTEROLOGY,[facility] [place] [OTHER, Gastroenterology] - 2 weeks Referral Note: Colostomy evaluation Clinical Impression: Colostomy status GISELL JEREZ, [employer] [Primary Care Provider, Medicine] - 1 week Referral Note: ER follow up call for appt HPI General Mode of arrival: wheelchair. Date/Time Provider Initiated Documentation: 06/15/25 09:39. Limitations to Documentation: physical limitation (Hard of hearing ). Information obtained by: patient, family (Friend, emergency contact Alek), RN notes reviewed and old records reviewed. HPI Narrative: 89-year-old female presents to the ER via wheelchair with a chief complaint of dizziness, per caregiver and friend that she presents with she has been having what looks like feces from her urethra when she urinates. This has been ongoing since this morning. He also reports 2 weeks of having to increase her nasal cannula to 5 L. She does have a colostomy, PAD, PVD, COPD, breast cancer, stage IV kidney disease, CAD, A-fib, Pacemaker in place, Colostomy, Mastectomy, Tremor Related Data Home Medications ?Medication ?Instructions ?Recorded ?Confirmed aspirin 81 mg tablet,delayed 81 mg PO DAILY 05/08/19 06/15/25 release (Adult Aspirin Regimen) cholecalciferol (vitamin D3) 50 2,000 unit PO DAILY 05/08/19 06/15/25 mcg (2,000 unit) capsule glipizide 2.5 mg tablet, extended 2.5 mg PO DAILY 05/08/19 06/15/25 release 24 hr magnesium gluconate 27 mg 27 mg PO DAILY 05/08/19 06/15/25 magnesium (500 mg) tablet (Mag-G) torsemide 10 mg tablet 20 mg PO BID 05/08/19 06/15/25 apixaban 2.5 mg tablet (Eliquis) 2.5 mg PO BID 08/10/21 06/15/25 ascorbic acid (vitamin C) 500 mg 500 mg PO DAILY 08/10/21 06/15/25 tablet (Vitamin C) carvedilol 12.5 mg tablet 12.5 mg PO BID 08/10/21 06/15/25 lisinopril 40 mg tablet 20 mg PO DAILY 08/10/21 06/15/25 fluticasone propionate 50 2 spray intranasal DAILY 30 days 01/30/23 06/15/25 mcg/actuation nasal #16 grams spray,suspension (Flonase Allergy Relief) atorvastatin 80 mg tablet 80 mg PO DAILY CVA #30 tabs 08/10/23 06/15/25 levothyroxine 50 mcg tablet 50 mcg PO DAILY 04/07/24 06/15/25 (Synthroid) cyanocobalamin (vitamin B-12) 500 3,000 mcg PO DAILY 08/26/24 06/15/25 mcg tablet (B-12 DOTS) levothyroxine 75 mcg tablet 75 mcg PO .COMPLEX 08/26/24 06/15/25 ascorbic acid (vitamin C) 500 mg 500 mg PO DAILY 11/13/24 06/15/25 tablet conjugated estrogens 0.625 mg/gram 0.625 mg vaginal DAILY 11/13/24 06/15/25 vaginal cream (Premarin) nitroglycerin 0.4 mg sublingual 0.4 mg sublingual Q5M PRN 11/13/24 06/15/25 tablet tramadol 50 mg tablet 50 mg PO BID PRN 11/13/24 06/15/25 ketoconazole 2 % topical cream 1 applic topical DAILY fungal 12/02/24 06/15/25 nails #30 grams acetaminophen 500 mg capsule 500 mg PO Q6H PRN 06/15/25 06/15/25 atorvastatin 20 mg/5 mL (4 mg/mL) 20 mg PO DAILY 06/15/25 06/15/25 oral suspension (AtorvaliQ) lactulose 10 gram/15 mL oral 10 g PO DAILY 06/15/25 06/15/25 solution meclizine 12.5 mg tablet 12.5 mg PO DAILY PRN PRN dizziness 06/15/25 #7 tabs Previous Rx's ?Medication ?Instructions ?Recorded fluticasone propionate 50 2 spray intranasal DAILY 30 days 01/30/23 mcg/actuation nasal #16 grams spray,suspension (Flonase Allergy Relief) atorvastatin 80 mg tablet 80 mg PO DAILY CVA #30 tabs 08/10/23 ketoconazole 2 % topical cream 1 applic topical DAILY fungal 12/02/24 nails #30 grams meclizine 12.5 mg tablet 12.5 mg PO DAILY PRN PRN dizziness 06/15/25 #7 tabs Allergies Allergy/AdvReac Type Severity Reaction Status Date / Time levofloxacin Allergy Severe Other (See Unverified 06/15/25 10:49 Comment) Penicillins Allergy Intermediate RASH Unverified 06/15/25 10:49 erythromycin base Allergy Unknown Other (See Verified 06/15/25 10:49 Comment) sulfamethoxazole (From Allergy Other (See Verified 06/15/25 10:49 Bactrim) Comment) trimethoprim (From Bactrim) Allergy Other (See Verified 06/15/25 10:49 Comment) General JUNG: 2 Review of Systems All systems reviewed & are unremarkable except as noted in HPI and below Constitutional Constitutional: Reports as per HPI and Reports weakness Genitourinary Genitourinary: Reports as per HPI Neurologic Neurologic: Reports weakness Medical Decision Making 89-year-old female presents to the ER via wheelchair with a chief complaint of dizziness, per caregiver and friend that she presents with she has been having what looks like feces from her urethra when she urinates. This has been ongoing since this morning. He also reports 2 weeks of having to increase her nasal cannula to 5 L. She does have a colostomy, PAD, PVD, COPD, breast cancer, stage IV kidney disease, CAD, A-fib, Pacemaker in place, Colostomy, Mastectomy, Tremor Workup ordered including CBC CMP serial troponins, EKG VBG magnesium urinalysis with In-N-Out catheter. Chest x-ray. Critical result from lab lactate 3.1 Will interrogate pacemaker, VBG shows pH of 7.39, pCO2 40 pO2 26 total CO2 23 bicarb 24 No evidence of urinary tract infection urinalysis catheterized urine specimen, no leukocytosis hemoglobin 10.9 hematocrit 30 baseline, VBG, noted above, lactate is 3.1, BUN 54 creatinine 2.5 GFR 18, glucose 110 initial troponin within normal limits will continue to monitor this morning. Lipase 53. 1 year ago GFR was 10 , Cr 3. I do suspect this is from the respiratory disease and peripheral vascular disease. Patient has very poor circulation. 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 250 ml slow bolus of NS ordered, Meclizine 12.5mg PO and CT abd Pelvis without contrast ordered. Patient is pleasant, alert and oriented answers questions appropriately while in department. on patient reevaluation discussed labs CT results her lactate has decreased to 1.4 after 250 cc bolus. They are convinced that she had some stool out of her vagina or her urethra this a.m. She also states that she has not had any stool produced since last night. I did take off the back and there is some soft formed stool noted from the colostomy os, no obvious blood or dark stools noted. Surgery paged for consult. 1322: Spoke with Dr. Gottlieb who was able to personally review the CT images he notes no air in her bladder he does state that she could have a small vaginal fistula, he also states that what could potentially be happening as a small amount of drainage from her rectum. He does recommend that she follow-up with her colorectal surgeon at [facility]. This dressing reasonable at this time as it does seem that the colostomy does have stool in it and is producing stool. This is limited and ongoing for the last 12 hours. Will relay plan of care with patient and family. Discussed recommendations with caregiver and family, verbalized understanding. discharged in hemodynamiclly stable condition with family. This text was generated using [employer]-Driveation system, please disregard any oddities of phrase or misspellings. Medical Records Medical records reviewed: Yes I reviewed the patient's medical records. Imaging Data Radiologic Study: Imaging: CT Scan Radiologist's impression: FINDINGS: Lung Bases: Trace left pleural effusion and adjacent atelectasis. The heart is enlarged. Liver: Normal density. No suspicious mass. Gallbladder and biliary tract: Small stones again noted. Pancreas: Normal density. No abnormal calcifications or inflammatory process. Spleen: Normal. Kidneys: Normal size, contour and axis. No radiodense stones. No obstructive uropathy. Cyst again noted. No suspicious masses seen. Adrenal glands: Stable adrenal nodule. Lymph nodes: Within normal limits. Vasculature: Abdominal aorta non-dilated. Severe atherosclerotic changes. Soft tissues: Left-sided colostomy is unremarkable. Tiny fat containing hernia again noted above the level of the umbilicus.. Bladder: No wall thickening. No mass or calculi. Bowel: Left-sided colostomy. No obstruction or bowel wall thickening. Peritoneal cavity: No ascites. No focal collection. No mesenteric inflammatory response. Reproductive organs: Unremarkable. Bones: Unremarkable for age. IMPRESSION: No acute abnormality in the abdomen or pelvis. Stable appearance of left-sided colostomy. No evidence of bowel obstruction or inflammatory changes. Lab Data Lab results reviewed: Yes I reviewed the patient's lab results. Labs: Laboratory Tests Range/Units 06/15/25 06/15/25 06/15/25 10:10 10:37 11:10 WBC (4.4-10.8) 10^3/uL 6.23 RBC (3.93-5.22) 10^6/uL 3.22 L Hgb (11.2-15.7) g/dL 10.9 L Hct (36.0-46.0) % 33.3 L MCV (80-95) fL 103 H MCH (27.0-33.0) pg 33.9 H MCHC (32.0-36.0) % 32.7 RDW (11.7-14.6) % 15.4 H Plt Count (130-400) 10^3/uL 186 MPV (8.0-11.0) fL 10.1 Immature Gran % % 0.5 Neutrophils % % 63.0 Lymphocytes % % 16.9 Monocytes % % 14.9 Eosinophils % % 3.9 Basophils % % 0.8 Nucleated RBC % (0.0-0.3) % 0.0 Absolute Neutrophils (1.2-6.7) 10^3/uL 3.93 Absolute Lymphocytes (1.2-3.4) 10^3/uL 1.05 L Absolute Monocytes (0.1-0.8) 10^3/uL 0.93 H Absolute Eosinophils (0.0-0.7) 10^3/uL 0.24 Absolute Basophils (0.0-0.2) 10^3/uL 0.05 PT (9.1-11.1) sec 10.9 INR (0.9-1.1) 1.1 VBG pH (7.31-7.41) 7.39 VBG pCO2 (41-51) mmHg 40 L VBG pO2 mmHg 26 VBG HCO3 (23-28) mmol/L 24 VBG Total CO2 (24-29) mmol/L 23 L VBG O2 Saturation % 42 VBG Base Excess (-2-3) mmol/L -1 VBG Lactate (<or=2.0) mmol/L 3.1 H* Sodium (136-145) mmol/L 139 Potassium (3.5-5.1) mmol/L 4.2 Chloride (98-107) mmol/L 103 Carbon Dioxide (21.0-32.0) mmol/L 25.4 Anion Gap (3-11) mmol/L 10.6 BUN (7-18) mg/dL 54 H Creatinine (0.55-1.02) mg/dL 2.5 H Est GFR (CKD-EPI 2020) (mL/min/1.73m2) 18.05 Glucose (74-106) mg/dL 110 H Calcium (8.5-10.1) mg/dL 10.0 Magnesium (1.8-2.4) mg/dL 2.3 Total Bilirubin (0.2-1.0) mg/dL 0.7 AST (15-37) U/L 15 ALT (14-59) U/L 21 Alkaline Phosphatase (46-116) U/L 58 Troponin I (<or=51) ng/L 32 28 Total Protein (6.4-8.2) g/dL 7.2 Albumin (3.4-5.0) g/dL 3.5 Lipase (<78) U/L 53 Urine Color (Yellow) Yellow Urine Clarity (Clear) Clear Urine pH (5-8) 6.5 Ur Specific [place] (1.005-1.025) 1.010 Urine Protein (Neg-Trace) mg/dL Negative Urine Ketones (Negative) mg/dL Negative Urine Blood (Negative) Negative Urine Nitrite (Negative) Negative Urine Bilirubin (Negative) Negative Urine Urobilinogen (Up to 0.2) mg/dL 0.2 Ur Leukocyte Esterase (Negative) Negative Urine Glucose (Negative) mg/dL Negative PFSH All Active Problems (Updated 06/15/25 @ 13:24 by Cheryl Montero NP) Colostomy status (Acute) Dizziness (Acute) Dystrophia unguium (Acute) Onychomycosis (Acute) Corns and callosities (Acute) PVD (peripheral vascular disease) (Chronic) PAD (peripheral artery disease) (Acute) Type 2 diabetes mellitus with peripheral neuropathy (Acute) COPD (chronic obstructive pulmonary disease) (Chronic) Bradycardia (Acute) Anemia (Chronic) CKD (chronic kidney disease) (Chronic) Orthostatic hypotension (Acute) Ocular migraine (Acute) Hallucinations (Acute) Imbalance due to old stroke (Acute) Essential tremor (Acute) Carotid stenosis, right (Acute) Occipital stroke (Acute) Impairment of speech discrimination (Acute) Fall (Acute) Fracture of nasal bone (Acute) Contusion of rib on left side (Acute) Chest wall contusion (Acute) Colostomy in place (Acute 04/03/13) Postoperative hypothyroidism (Acute 04/03/13) Lichen sclerosus et atrophicus (Acute 04/03/13) Ischemic colitis (Acute 04/03/13) 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) Diabetes mellitus (Acute 04/03/13) Medical History Stroke History of ischemic colitis Stage 4 chronic kidney disease Sciatica, right side DNR (do not resuscitate) Cystitis Allergic rhinitis Hx of recurrent urinary tract infection Decreased hearing of right ear Hypothyroid Hyperlipidemia Hypertension BPPV (benign paroxysmal positional vertigo) Breast cancer Myocardial infarct DK (obstructive sleep apnea) History of cervical dysplasia Chest pain Lumbago Tear of both anterior and posterior cruciate ligaments of knee TIA (transient ischemic attack) CAD (coronary artery disease) Sciatica Paroxysmal atrial fibrillation Right bundle branch block Tendon disorder GERD (gastroesophageal reflux disease) Dyspnea on exertion Rectal pouchitis Chronic cough Acute recurrent cystitis Anemia of chronic renal failure Surgical History S/P appendectomy S/P bunionectomy S/P placement of cardiac pacemaker S/P middle ear reconstruction (04/03/13) Colostomy (~2006) for Ischemic colitis Breast, Mastectomy (~2001) Right Family History Father Hypertension Diabetes Heart disease Mother Hypertension Heart disease Social History Smoking/Tobacco Use Status: Former Tobacco Use Smoking risk assessment performed?: Yes Alcohol Intake: former Drug use: Never Substance use type: does not use Household members: none Housing: house Number of Children: 2 What is your relationship status?: Panel score (0-1 are the most socially isolated patients): 0 Seatbelt use: always Do you feel safe at home: Yes Do you feel safe in your relationship?: Yes
[2025-06-15 10:15] LABS: BE (Venous) -1 mmol/L (-2-3); HCO3 (Venous) 24 mmol/L (23-28); O2 Sat (Venous) 42 %; TCO2 (Venous) 23 mmol/L (24-29); pCO2 (Venous) 40 mmHg (41-51); pO2 (Venous) 26 mmHg
[2025-06-15 10:22] LABS: Abs Immature Grans 0.03 10^3/uL (0.0-0.06); HCT 33.3 % (36.0-46.0); HGB 10.9 g/dL (11.2-15.7); Immature Grans % 0.5 %; MCH 33.9 pg (27.0-33.0); MCHC 32.7 % (32.0-36.0); MCV 103 fL (80-95); MPV 10.1 fL (8.0-11.0); Platelet Count 186 10^3/uL (130-400); RBC 3.22 10^6/uL (3.93-5.22); RDW 15.4 % (11.7-14.6); RDW-SD 59.2 fL; WBC 6.23 10^3/uL (4.4-10.8)
[2025-06-15 10:27] LABS: INR 1.1 (0.9-1.1); Prothrombin Time 10.9 sec (9.1-11.1)
[2025-06-15 10:40] LABS: ALT 21 U/L (14-59); AST 15 U/L (15-37); Albumin 3.5 g/dL (3.4-5.0); Alkaline Phosphatase 58 U/L (46-116); Anion Gap 10.6 mmol/L (3-11); BUN 54 mg/dL (7-18); Bilirubin, Total 0.7 mg/dL (0.2-1.0); CO2 25.4 mmol/L (21.0-32.0); Calcium 10.0 mg/dL (8.5-10.1); Chloride 103 mmol/L (98-107); Estimated GFR 18.05 (mL/min/1.73m2); Glucose 110 mg/dL (74-106); Lipase 53 U/L (<78); Magnesium 2.3 mg/dL (1.8-2.4); Potassium 4.2 mmol/L (3.5-5.1); Sodium 139 mmol/L (136-145); Total Protein 7.2 g/dL (6.4-8.2); Troponin I 32 ng/L (<or=51)
[2025-06-15] MEDS: Meclizine 12.5 MG TAB PO (11:02)
[2025-06-15 11:03] LABS: Glucose Negative (Negative)
[2025-06-15] MEDS: Normal Saline 250 ML IV (11:03)
--- NOTE | 2025-06-15 11:36 | DI.CT_ITS ---
Exam(s) CT ABDOMEN PELVIS WO EXAM: CT ABDOMEN PELVIS WO CLINICAL HISTORY: Dizziness, eval Colostomy, Fistula? UTI?. TECHNIQUE: Imaging Protocol: Axial computed tomography images with coronal and sagittal reformatted images were created and reviewed. Oral: / no COMPARISON: CT CT CHEST/ABD/PEL WO from 08/10/[address] ABDOMEN PELVIS WO from 08/26/2024 FINDINGS: Lung Bases: Trace left pleural effusion and adjacent atelectasis. The heart is enlarged. Liver: Normal density. No suspicious mass. Gallbladder and biliary tract: Small stones again noted. Pancreas: Normal density. No abnormal calcifications or inflammatory process. Spleen: Normal. Kidneys: Normal size, contour and axis. No radiodense stones. No obstructive uropathy. Cyst again noted. No suspicious masses seen. Adrenal glands: Stable adrenal nodule. Lymph nodes: Within normal limits. Vasculature: Abdominal aorta non-dilated. Severe atherosclerotic changes. Soft tissues: Left-sided colostomy is unremarkable. Tiny fat containing hernia again noted above the level of the umbilicus.. Bladder: No wall thickening. No mass or calculi. Bowel: Left-sided colostomy. No obstruction or bowel wall thickening. Peritoneal cavity: No ascites. No focal collection. No mesenteric inflammatory response. Reproductive organs: Unremarkable. Bones: Unremarkable for age. IMPRESSION: No acute abnormality in the abdomen or pelvis. Stable appearance of left-sided colostomy. No evidence of bowel obstruction or inflammatory changes. RADIATION DOSE DELIVERED: 480.59mGy.cm Total DLP DATA REPOSITORY: All CT scans at this facility are submitted to the National Radiology Data Registry (NRDR) Dose Index Registry (DIR) with the [employer] (A[employer]). RADIATION OPTIMIZATION: All CT scans at this facility use at least one of these dose optimization techniques: automated exposure control; mA and/or kV adjustment per patient size (includes targeted exams where dose is matched to clinical indication); or iterative reconstruction.
[2025-06-15 12:06] LABS: Troponin I 28 ng/L (<or=51)
== END 2025-06-15 14:11 | disposition home or self-care (01) ==
PROVIDERS: Emergency Provider Registered Nurse Emergency; PCP Nurse Practitioner Family
DX: R42 Dizziness and giddiness (principal); R53.1 Weakness; E11.22 Type 2 diabetes mellitus with diabetic chronic kidney disease; I12.9 Hypertensive chronic kidney disease with stage 1 through stage 4 chronic kidney disease, or unspecified chronic kidney disease; N18.4 Chronic kidney disease, stage 4 (severe); E11.40 Type 2 diabetes mellitus with diabetic neuropathy, unspecified; I25.10 Atherosclerotic heart disease of native coronary artery without angina pectoris; I25.2 Old myocardial infarction; I48.0 Paroxysmal atrial fibrillation; J44.9 Chronic obstructive pulmonary disease, unspecified; E78.5 Hyperlipidemia, unspecified; Z95.0 Presence of cardiac pacemaker; Z79.01 Long term (current) use of anticoagulants; Z79.84 Long term (current) use of oral hypoglycemic drugs; Z99.81 Dependence on supplemental oxygen; Z87.891 Personal history of nicotine dependence
CPT/HCPCS: 36415; 80053; 82805; 83690; 93005; 99284; 71045; 74176; 81003; 83605; 83735; 84484; 85025; 85610; 93010